=== PATIENT | female | born 1985 | race Caucasian/White ===

== ENCOUNTER 2019-01-28 16:44 | Emergency (ER) | payer OTHER ==
[2019-01-28 17:30] LABS: Absolute Lymphocytes (CBC) 1.5 K/uL (0.7-4.9); Absolute Monocytes 0.3 K/uL (0.1-1.3); Absolute Neutrophil 4.3 K/uL (1.8-8.0); Basophils % 0.7 % (0-1.3); Eosinophils % 0.9 % (0-4.4); Hematocrit 35.4 % (36.0-45.0); Lymphocytes % 24.6 % (15.3-44.8); MPV 8.2 fL (7.6-11.3); Monocytes % 4.6 % (3.3-12.3)
[2019-01-28 18:09] LABS: BUN Blood Urea Nitrogen 14 mg/dL (7-18); Bicarbonate 28 mmol/L (21-32); Glucose Level 113 mg/dL (74-106); HCG, Quantitative 4359 mIU/mL (1-3); Potassium 3.6 mmol/L (3.5-5.1); Sodium Level 141 mmol/L (136-145)
--- NOTE | 2019-01-28 18:28 | EDPHYS ---
Physician Documentation [facility] Name: Miriam Lennon Age: 33 yrs Sex: Female : 1985 Arrival Date: 01/28/2019 Time: 16:48 Bed 20 Private MD: ED Physician Atilio Polanco HPI: 01/28 17:00 This 33 yrs old Female presents to ER via Ambulatory with complaints of jmm Vaginal Bleeding, + Preg <12wks. 17:00 The patient presents to the emergency department with vaginal bleeding. Associated jmm signs and symptoms: Pertinent positives: vaginal bleeding. This is a 33 year old female with a history of hypothyroidism that presents to the ED with complaints of vaginal bleeding. Patient also complaints of pelvic cramping. Blood is described as dark. Patient denies vomiting or diarrhea. . 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 - Social history:: Smoking status: Patient/guardian denies using tobacco. - Ebola Screening: : Patient negative for fever greater than or equal to 101.5 degrees Fahrenheit, and additional compatible Ebola Virus Disease symptoms Patient denies exposure to infectious person Patient denies travel to an Ebola-affected area in the 21 days before illness onset No symptoms or risks identified at this time. ROS: 17:00 Constitutional: Negative for fever, chills, and weight loss, Cardiovascular: Negative jmm for chest pain, palpitations, and edema, Respiratory: Negative for shortness of breath, cough, wheezing, and pleuritic chest pain. 17:00 : Positive for vaginal bleeding. 17:00 All other systems are negative. Exam: 17:00 Constitutional: This is a well developed, well nourished patient who is awake, alert, jmm and in no acute distress. Head/Face: atraumatic. Eyes: EOMI, no conjunctival erythema appreciated ENT: Moist Mucus Membranes Neck: Trachea midline, Supple Chest/axilla: Normal chest wall appearance and motion. Cardiovascular: Regular rate and rhythm. No edema appreciated Respiratory: Normal respirations, no respiratory distress appreciated Abdomen/GI: Non distended, soft Back: Normal ROM Skin: General appearance color normal MS/ Extremity: Moves all extremities, no obvious deformities appreciated, no edema noted to the lower extremities Neuro: Awake and alert, normal gait Vital Signs: 16:50 BP 135 / 89; Pulse 90; Resp 16; Temp 98.6; Pulse Ox 100% on R/A; Weight 63.5 kg; Height sg 5 ft. 9 in. (175.26 cm); Pain 10/10; 17:54 BP 100 / 66; Pulse 78; Resp 18; Pulse Ox 100% on R/A; em 18:50 BP 113 / 73; Pulse 75; Resp 16; Temp 98.7(O); Pulse Ox 98% on R/A; Pain 6/10; rb1 16:50 Body Mass Index 20.67 (63.50 kg, 175.26 cm) sg MDM: 17:00 Patient medically screened. [facility] 18:25 Data reviewed: vital signs, nurses notes. Counseling: I had a detailed discussion with [facility] the patient and/or guardian regarding: the historical points, exam findings, and any diagnostic results supporting the discharge/admit diagnosis, lab results, radiology results, the need for outpatient follow up, to return to the emergency department if symptoms worsen or persist or if there are any questions or concerns that arise at home. 18:25 ED course: Patient is alert and non toxic in appearance in the ED. Advised to follow up [facility] with obgyn for reevaluation. Patient was otherwise given strict return precautions. patient understood and agrees with the plan of care. . 01/28 17:00 Order name: Quantitative Hcg; Complete Time: 18:10 [facility] 01/28 17:00 Order name: Abo/rh Typing; Complete Time: 18:10 [facility] 01/28 17:00 Order name: Basic Metabolic Panel; Complete Time: 18:10 [facility] 01/28 17:00 Order name: CBC with Diff; Complete Time: 17:36 [facility] 01/28 17:47 Order name: Urine Dipstick--Ancillary (enter results) 01/28 17:47 Order name: Urine --Ancillary (enter results) 01/28 17:00 Order name: IV Saline Lock; Complete Time: 17:32 [facility] 01/28 17:00 Order name: Labs collected and sent; Complete Time: 17:32 [facility] 01/28 17:00 Order name: NPO; Complete Time: 17:32 [facility] 01/28 17:00 Order name: Urine Dipstick-Ancillary (obtain specimen); Complete Time: 17:28 [facility] 01/28 17:00 Order name: Urine Dipstick-Ancillary (obtain specimen); Complete Time: 17:28 [facility] 01/28 18:26 Order name: TRANSVAG OB EDMS Administered Medications: No medications were administered Disposition: 01/28/19 18:27 Discharged to Home. Impression: Threatened . - Condition is Stable. - Discharge Instructions: Threatened Miscarriage, Pelvic Rest. - Medication Reconciliation Form, Thank You Letter, Antibiotic Education, Prescription Opioid Use form. - Follow up: Private Physician; When: 2 - 3 days; Reason: Recheck today's complaints, Continuance of care, Re-evaluation by your physician. Signatures: Dispatcher [employer] [facility] Wes Syed, RN RN Jarvis Geiger PA PA [facility] Katiana Charlton, RN RN rb1 Corrections: (The following items were deleted from the chart) 18:26 17:01 OB Limited+US.RAD.BRZ ordered. [facility] 18:41 17:00 3, Living 2 [facility] 18:57 18:27 01/28/2019 18:27 Discharged to Home. Impression: Threatened . Condition rb1 is Stable. Forms are Medication Reconciliation Form, Thank You Letter, Antibiotic Education, Prescription Opioid Use. Follow up: Private Physician; When: 2 - 3 days; Reason: Recheck today's complaints, Continuance of care, Re-evaluation by your physician. [facility]
--- NOTE | 2019-01-28 18:28 | ER ---
Nurse's Notes [facility] Name: Miriam Lennon Age: 33 yrs Sex: Female : 1985 Arrival Date: 01/28/2019 Time: 16:48 Bed 20 Private MD: Diagnosis: Threatened Presentation: 01/28 16:54 Presenting complaint: Patient states: I just found out I was , I think I am sg bout 7 weeks, Had some dizziness and vaginal spotting this morning, then this afternoon the blood has been dark brown and heavier in flow, with pain in the pelvic area. Transition of care: patient was not received from another setting of care. Onset of symptoms was January 28, 2019. Risk Assessment: Do you want to hurt yourself or someone else? Patient reports no desire to harm self or others. Initial Sepsis Screen: Does the patient meet any 2 criteria? No. Patient's initial sepsis screen is negative. Does the patient have a suspected source of infection? No. Patient's initial sepsis screen is negative. Care prior to arrival: None. 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 - Social history:: Smoking status: Patient/guardian denies using tobacco. - Ebola Screening: : Patient negative for fever greater than or equal to 101.5 degrees Fahrenheit, and additional compatible Ebola Virus Disease symptoms Patient denies exposure to infectious person Patient denies travel to an Ebola-affected area in the 21 days before illness onset No symptoms or risks identified at this time. Screenin:10 Abuse screen: Denies threats or abuse. Nutritional screening: No deficits noted. em Tuberculosis screening: No symptoms or risk factors identified. Fall Risk None identified. Assessment: 17:15 General: Appears in no apparent distress. comfortable, Behavior is calm, cooperative, em Denies fever. Pain: Complains of pain in pelvis Pain currently is 0 out of 10 on a pain scale. at worst was 10 out of 10 on a pain scale. Neuro: Level of Consciousness is awake, alert, obeys commands, Oriented to person, place, time, situation, Reports dizziness, Denies blurred vision headache. Cardiovascular: Capillary refill < 3 seconds Patient's skin is warm and dry. Respiratory: Airway is patent Respiratory effort is even, unlabored, Respiratory pattern is regular, symmetrical. GI: Abdomen is flat, Bowel sounds present X 4 quads. Abd is soft and non tender X 4 quads. Reports nausea, Patient currently denies vomiting. : Urine is clear, Reports cramping, vaginal bleeding that is Denies burning with urination, discharge. Derm: Skin is intact, is healthy with good turgor, Skin is pink, warm \T\ dry. Musculoskeletal: Capillary refill < 3 seconds, Range of motion: intact in all extremities. 17:55 Reassessment: Patient appears in no apparent distress at this time. Patient and/or em family updated on plan of care and expected duration. Pain level reassessed. Patient is alert, oriented x 3, equal unlabored respirations, skin warm/dry/pink. pending ultrasound. 18:51 Reassessment: Patient appears in no apparent distress at this time. Patient and/or rb1 family updated on plan of care and expected duration. Pain level reassessed. Patient is alert, oriented x 3, equal unlabored respirations, skin warm/dry/pink. Patient states feeling better. Vital Signs: 16:50 BP 135 / 89; Pulse 90; Resp 16; Temp 98.6; Pulse Ox 100% on R/A; Weight 63.5 kg; Height sg 5 ft. 9 in. (175.26 cm); Pain 10/10; 17:54 BP 100 / 66; Pulse 78; Resp 18; Pulse Ox 100% on R/A; em 18:50 BP 113 / 73; Pulse 75; Resp 16; Temp 98.7(O); Pulse Ox 98% on R/A; Pain 6/10; rb1 16:50 Body Mass Index 20.67 (63.50 kg, 175.26 cm) ED Course: 16:48 Patient arrived in ED. tw3 16:50 Arm band placed on. sg 16:52 Ash Leon PA is PHCP. jmm 16:52 Atilio Polanco MD is Attending Physician. [facility] 16:55 Triage completed. sg 16:58 Yosef Abreu LVN is Primary Nurse. em 17:15 Initial lab(s) drawn, by me, sent to lab. Inserted saline lock: 20 gauge in right em antecubital area, using aseptic technique. Blood collected. 17:28 Patient has correct armband on for positive identification. Placed in gown. Bed in low mh5 position. Call light in reach. Warm blanket given. Pulse ox on. NIBP on. 17:28 Urine collected: clean catch specimen, clear. 5 18:25 Ultrasound completed. Patient tolerated well. Notified ED Physician ash. sg3 18:26 TRANSVAG OB In Process Unspecified. EDMS 18:57 No provider procedures requiring assistance completed. IV discontinued, intact, rb1 bleeding controlled, No redness/swelling at site. Pressure dressing applied. Administered Medications: No medications were administered Outcome: 18:27 Discharge ordered by MD. [facility] 18:57 Discharged to home ambulatory. rb1 18:57 Condition: stable 18:57 Discharge instructions given to patient, Instructed on discharge instructions, follow up and referral plans. Demonstrated understanding of instructions, follow-up care, Prescriptions given X none 18:57 Patient left the ED. rb1 Signatures: Dispatcher [employer] EDMS Wes Syed, RN RN Ash Geiger PA PA [facility] Yosef Abreu LVN LVN Katiana Charlton, RN RN rb1 Fadumo Drew 5 Jacob, Kellen 3 Soha Castillo sg3
--- NOTE | 2019-01-28 19:01 | RAD REPORT ---
EXAM DESCRIPTION: US - TRANSVAG OB - 01/28/2019 6:26 pm CLINICAL HISTORY: with vaginal bleeding COMPARISON: None FINDINGS: The uterus measures 10 x 5 x 6 centimeters. A gestational sac is present within the endom etrium. Within this is a pole with a crown-rump length 1 centimeter. Cardiac activity 157 beats per minute. 15 millimeter subchorionic bleed The ovaries are normal in size echotexture. Right and left adnexa unremarkable. No significant free fluid IMPRESSION: Single live intrauterine with an estimated gestational age 7 weeks 1 day OLIVIA 0 09/15/2019 15 millimeter subchorionic bleed
[2019-01-28 20:13] LABS: Urine Blood TRACE (NEG); Urine Glucose NEGATIVE (NEG); Urine Protein NEGATIVE (NEG); Urine Specific Gravity 1.025 (1.005-1.030)
== END 2019-01-28 18:57 | disposition home or self-care (01) ==
LOC: ER 16:44
DX: O20.0 Threatened abortion (principal); O99.281 Endocrine, nutritional and metabolic diseases complicating pregnancy, first trimester; E03.9 Hypothyroidism, unspecified; Z3A.01 Less than 8 weeks gestation of pregnancy
CPT/HCPCS: 36415; 76813; 80048; 81003; 81025; 84702; 85025; 86900; 86901; 99284

== ENCOUNTER 2019-01-29 18:18 | Emergency (ER) | payer OTHER ==
[2019-01-29 19:41] LABS: Absolute Lymphocytes (CBC) 1.8 K/uL (0.7-4.9); Absolute Monocytes 0.5 K/uL (0.1-1.3); Absolute Neutrophil 7.1 K/uL (1.8-8.0); Basophils % 0.4 % (0-1.3); Eosinophils % 0.7 % (0-4.4); Lymphocytes % 19.1 % (15.3-44.8); MPV 8.3 fL (7.6-11.3); Monocytes % 5.4 % (3.3-12.3); RBC Red Blood Cell Count 4.28 M/uL (3.86-4.86)
--- NOTE | 2019-01-29 20:54 | EDPHYS ---
Physician Documentation [facility] Name: Miriam Lennon Age: 33 yrs Sex: Female : 1985 Arrival Date: 01/29/2019 Time: 18:20 Bed 30 Private MD: ED Physician Atilio Polanco HPI: 01/29 18:51 This 33 yrs old Female presents to ER via Ambulatory with complaints of jmm Vaginal Bleeding. 18:51 Onset: The symptoms/episode began/occurred gradually, 2 day(s) ago. jmm 18:51 Modifying factors: The symptoms are alleviated by nothing, the symptoms are aggravated jmm by walking. Associated signs and symptoms: Pertinent positives: cramping, vaginal bleeding, Pertinent negatives: fever. This is a 33 year old female with a history of hypothyroidism that presents to the ED with complaints of increased vaginal bleeding. Patient was evaluated yesterday and diagnosed with a threatened . Patient also complaints of increased pelvic cramping. . 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 - Social history:: Smoking status: Patient/guardian denies using tobacco, the patient reports quitting approximately 5 years ago. - Ebola Screening: : No symptoms or risks identified at this time. ROS: 18:51 Positive for vaginal bleeding. jmm 18:51 Constitutional: Negative for fever, chills, and weight loss. 18:51 Cardiovascular: Negative for chest pain, palpitations, and edema, Respiratory: Negative for shortness of breath, cough, wheezing, and pleuritic chest pain, Abdomen/GI: Negative for abdominal pain, nausea, vomiting, diarrhea, and constipation. 18:51 All other systems are negative. Exam: 18:51 Constitutional: This is a well developed, well nourished patient who is awake, alert, jmm and in no acute distress. Head/Face: atraumatic. Eyes: EOMI, no conjunctival erythema appreciated ENT: Moist Mucus Membranes Neck: Trachea midline, Supple Chest/axilla: Normal chest wall appearance and motion. Cardiovascular: Regular rate and rhythm. No edema appreciated Respiratory: Normal respirations, no respiratory distress appreciated 18:51 Back: Normal ROM Skin: General appearance color normal MS/ Extremity: Moves all extremities, no obvious deformities appreciated, no edema noted to the lower extremities Neuro: Awake and alert, normal gait Psych: Behavior is normal, Mood is normal, Patient is cooperative and pleasant 18:51 Abdomen/GI: Inspection: abdomen appears normal, Palpation: abdomen is soft and non-tender, in all quadrants. Vital Signs: 18:39 BP 107 / 80; Pulse 81; Resp 18; Temp 98.4; Pulse Ox 100% ; Weight 63.5 kg; Height 5 ft. rv 8 in. (172.72 cm); Pain 7/10; 20:00 BP 96 / 62; Pulse 65; Resp 16; Pulse Ox 98% ; rv 20:30 BP 111 / 70; Pulse 82; Resp 18; Pulse Ox 100% ; rv 21:01 BP 110 / 71; Pulse 81; Resp 18; Temp 98; Pulse Ox 99% ; rv 18:39 Body Mass Index 21.29 (63.50 kg, 172.72 cm) rv MDM: 18:51 Patient medically screened. [facility] 20:52 Data reviewed: vital signs, nurses notes. Counseling: I had a detailed discussion with [facility] the patient and/or guardian regarding: the historical points, exam findings, and any diagnostic results supporting the discharge/admit diagnosis, lab results, the need for outpatient follow up, to return to the emergency department if symptoms worsen or persist or if there are any questions or concerns that arise at home. ED course: I discussed lab results with the patient. Patient declined pelvic exam for visualization of cervix. Patient will follow up with ob tomorrow. Patient is otherwise given strict return precautions. . 01/29 18:51 Order name: CBC with Diff; Complete Time: 20:15 [facility] 01/29 18:52 Order name: Quantitative Hcg; Complete Time: 20:45 [facility] 01/29 19:40 Order name: Pelvic Exam Setup; Complete Time: 20:17 [facility] Administered Medications: No medications were administered Disposition: 01/29/19 20:53 Discharged to Home. Impression: Threatened . - Condition is Stable. - Discharge Instructions: Threatened Miscarriage. - Medication Reconciliation Form, Thank You Letter, Antibiotic Education, Prescription Opioid Use form. - Follow up: Brionna Morales MD; When: 2 - 3 days; Reason: Recheck today's complaints, Continuance of care, Re-evaluation by your physician. Addendum: 02/02/2019 22:40 Co-signature as Attending Physician, Atilio Polanco MD. g s Signatures: Dispatcher [employer] EDMS Jarvis Leon PA PA jmm Starr, Gregory, MD MD Catrachito Turcios RN RN rv Corrections: (The following items were deleted from the chart) 01/29 21:03 20:53 01/29/2019 20:53 Discharged to Home. Impression: Threatened . Condition rv is Stable. Forms are Medication Reconciliation Form, Thank You Letter, Antibiotic Education, Prescription Opioid Use. Follow up: Brionna Morales; When: 2 - 3 days; Reason: Recheck today's complaints, Continuance of care, Re-evaluation by your physician. [place]
--- NOTE | 2019-01-29 20:54 | ER ---
Nurse's Notes [facility] Name: Miriam Lennon Age: 33 yrs Sex: Female : 1985 Arrival Date: 01/29/2019 Time: 18:20 Bed 30 Private MD: Diagnosis: Threatened Presentation: 01/29 18:37 Presenting complaint: Patient states: I was here yesterday for abdominal cramping which rv started in the morning. then they checked me, did the ultrasound, they told me the baby's heart rate is fine and to go back here if it gets worse. last night I started with really bad cramping and I have been bleeding heavily. passing blood clots. Transition of care: patient was not received from another setting of care. Onset of symptoms was January 28, 2019 at 08:00. Risk Assessment: Do you want to hurt yourself or someone else? Patient reports no desire to harm self or others. Initial Sepsis Screen: Does the patient meet any 2 criteria? No. Patient's initial sepsis screen is negative. Does the patient have a suspected source of infection? No. Patient's initial sepsis screen is negative. Care prior to arrival: None. 18:37 Method Of Arrival: Ambulatory rv 18:37 Acuity: JOSE G 3 rv Triage Assessment: 18:40 General: Appears in no apparent distress. uncomfortable, Behavior is calm, cooperative. rv Pain: Complains of pain in lower abdomen Pain radiates to lower back. Pain: Pain currently is 7 out of 10 on a pain scale. Quality of pain is described as crampy. EENT: No signs and/or symptoms were reported regarding the EENT system. Neuro: Level of Consciousness is awake, alert, obeys commands, Oriented to person, place, time, situation. Cardiovascular: Patient's skin is warm and dry. Respiratory: Airway is patent. GI: No signs and/or symptoms were reported involving the gastrointestinal system. : Reports vaginal bleeding that is with clots, heavy flow since last night. Derm: Skin is intact. Musculoskeletal: No signs and/or symptoms reported regarding the musculoskeletal system. 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 - Social history:: Smoking status: Patient/guardian denies using tobacco, the patient reports quitting approximately 5 years ago. - Ebola Screening: : No symptoms or risks identified at this time. Screenin:42 Abuse screen: Denies threats or abuse. Denies injuries from another. Nutritional rv screening: No deficits noted. Tuberculosis screening: No symptoms or risk factors identified. Fall Risk None identified. Vital Signs: 18:39 BP 107 / 80; Pulse 81; Resp 18; Temp 98.4; Pulse Ox 100% ; Weight 63.5 kg; Height 5 ft. rv 8 in. (172.72 cm); Pain 7/10; 20:00 BP 96 / 62; Pulse 65; Resp 16; Pulse Ox 98% ; rv 20:30 BP 111 / 70; Pulse 82; Resp 18; Pulse Ox 100% ; rv 21:01 BP 110 / 71; Pulse 81; Resp 18; Temp 98; Pulse Ox 99% ; rv 18:39 Body Mass Index 21.29 (63.50 kg, 172.72 cm) rv ED Course: 18:20 Patient arrived in ED. tw3 18:35 Catrachito Turcios, RN is Primary Nurse. rv 18:39 Triage completed. rv 18:42 Arm band placed on right wrist. Patient placed in an exam room, on a stretcher, on rv pulse oximetry, Patient notified of wait time. 18:43 Patient has correct armband on for positive identification. Bed in low position. Call rv light in reach. Side rails up X 1. Pulse ox on. NIBP on. 18:49 Jarvis Leon PA is PHCP. [facility] 18:49 Atilio Polanco MD is Attending Physician. [facility] 20:00 No provider procedures requiring assistance completed. Inserted saline lock: 20 gauge rv in left antecubital area, using aseptic technique. Blood collected. 20:53 Brionna Morales MD is Referral Physician. [facility] 21:02 IV discontinued, intact, bleeding controlled, No redness/swelling at site. Pressure rv dressing applied. Administered Medications: No medications were administered Outcome: 20:53 Discharge ordered by . [facility] 21:02 Discharged to home ambulatory. rv 21:02 Condition: good 21:02 Discharge instructions given to patient, Instructed on discharge instructions, follow up and referral plans. Demonstrated understanding of instructions, follow-up care. 21:03 Patient left the ED. rv Signatures: Jarvis Leon PA PA jmm Wade, Kellen tw3 Catrachito Turcios, RN RN rv
== END 2019-01-29 21:03 | disposition home or self-care (01) ==
LOC: ER 18:18
DX: O20.0 Threatened abortion (principal); O99.280 Endocrine, nutritional and metabolic diseases complicating pregnancy, unspecified trimester; E03.9 Hypothyroidism, unspecified; Z3A.00 Weeks of gestation of pregnancy not specified
CPT/HCPCS: 36415; 84702; 85025; 99284

== ENCOUNTER 2019-10-19 20:01 | Emergency (ER) | payer OTHER ==
--- OUTSIDE RECORDS SUMMARY | 2019-10-19 20:03 | XMS REPORT ---
:1985 [facility] Address [address] [place] [address] Dr. Webb [address] [place] [id number] Care Team Providers Name Role Phone Unavailable Unavailable Unavailable Problems This patient has no known problems. Allergies, Adverse Reactions, Alerts This patient has no known allergies or adverse reactions. Medications This patient has no known medications.
[2019-10-19 21:23] LABS: Absolute Lymphocytes (CBC) 1.7 K/uL (0.7-4.9); Basophils % 1.1 % (0-1.3); Hematocrit 36.2 % (36.0-45.0); Lymphocytes % 30.4 % (15.3-44.8); MPV 8.4 fL (7.6-11.3); RBC Red Blood Cell Count 3.91 M/uL (3.86-4.86)
[2019-10-19 21:52] LABS: ALT/SGPT 29 U/L (12-78); AST/SGOT 15 U/L (15-37); Alkaline Phosphatase 36 U/L (45-117); BUN Blood Urea Nitrogen 13 mg/dL (7-18); Bicarbonate 31 mmol/L (21-32); Bilirubin Direct 0.1 mg/dL (0-0.2); Bilirubin Total 0.3 mg/dL (0.2-1.0); Glucose Level 94 mg/dL (74-106); Magnesium 2.4 mg/dL (1.8-2.4); Potassium 3.7 mmol/L (3.5-5.1); Protein, Total 7.2 g/dL (6.4-8.2); Sodium Level 141 mmol/L (136-145); Troponin (Emerg Dept Use Only) < 0.02 ng/mL (0.0-0.045)
[2019-10-19] MEDS ORDERED: MORPHINE 4 MG/ML SYR ONE (21:56)
--- NOTE | 2019-10-19 23:25 | ER ---
Nurse's Notes [facility] Name: Miriam Lennon Age: 34 yrs Sex: Female : 1985 Arrival Date: 10/19/2019 Time: 20:04 Bed 16 Private MD: Diagnosis: Headache;Odonophagia Presentation: 10/19 20:19 Presenting complaint: Patient states: Pain to neck, trouble swallowing x 2 days; States lp1 dizziness, headaches, blurry vision that began when she woke up this morning. Transition of care: patient was not received from another setting of care. Onset of symptoms was October 19, 2019. Risk Assessment: Do you want to hurt yourself or someone else? Patient reports no desire to harm self or others. Initial Sepsis Screen: Does the patient meet any 2 criteria? No. Patient's initial sepsis screen is negative. Does the patient have a suspected source of infection? No. Patient's initial sepsis screen is negative. Care prior to arrival: None. 20:19 Method Of Arrival: Ambulatory lp1 20:19 Acuity: JOSE G 3 lp1 Triage Assessment: 20:20 Headache History: Denies prior headaches. Pain: Also complains of no other associated rr5 symptoms. 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 - Coronavirus screen:: The patient has NOT traveled to [place], [place], or [place] in the past 14 days. The patient has NOT had contact with known/suspected case of Coronavirus?. - Social history:: Smoking status: Patient reports the use of cigarette tobacco products. - Ebola Screening: : No symptoms or risks identified at this time. Screenin:21 Abuse screen: Denies threats or abuse. Denies injuries from another. Nutritional lp1 screening: No deficits noted. Tuberculosis screening: No symptoms or risk factors identified. Fall Risk None identified. Assessment: 20:20 General: Appears in no apparent distress. uncomfortable, Behavior is calm, cooperative, rr5 appropriate for age. 20:20 Pain: Complains of pain in head Pain does not radiate. Pain currently is 7 out of 10 on rr5 a pain scale. Quality of pain is described as aching, Pain began gradually, Is intermittent. Neuro: Level of Consciousness is awake, alert, obeys commands, Oriented to person, place, time, situation, Appropriate for age Reports blurred vision dizziness, headache. Cardiovascular: Capillary refill < 3 seconds Patient's skin is warm and dry. Respiratory: Airway is patent Respiratory effort is even, unlabored, Respiratory pattern is regular, symmetrical. GI: No signs and/or symptoms were reported involving the gastrointestinal system. : No signs and/or symptoms were reported regarding the genitourinary system. EENT: Throat is clear swelling right neck area noted. Reports difficulty swallowing. Derm: Skin is intact, Skin temperature is warm. Musculoskeletal: Circulation, motion, and sensation intact. Capillary refill < 3 seconds. 21:00 Reassessment: Patient appears in no apparent distress at this time. Patient is alert, rr5 oriented x 3, equal unlabored respirations, skin warm/dry/pink. awaiting for results. 22:05 Reassessment: Patient appears in no apparent distress at this time. Patient is alert, rr5 oriented x 3, equal unlabored respirations, skin warm/dry/pink. send for CT scan Patient states symptoms have improved. 23:35 Reassessment: Patient appears in no apparent distress at this time. Patient is alert, rr5 oriented x 3, equal unlabored respirations, skin warm/dry/pink. discharge instruction given and explained without complaints made. Patient states feeling better. Patient states symptoms have improved. Vital Signs: 20:21 BP 146 / 95; Pulse 78; Resp 16; Temp 98.3(O); Pulse Ox 100% on R/A; Weight 65.77 kg lp1 (R); Height 5 ft. 9 in. (175.26 cm); Pain 7/10; 21:30 BP 135 / 78; Pulse 80; Resp 19; Pulse Ox 98% ; Pain 8/10; rr5 22:30 BP 141 / 85; Pulse 83; Resp 16; Pulse Ox 98% on R/A; Pain 4/10; rr5 23:35 BP 121 / 75; Pulse 75; Resp 16; Temp 98.2; Pulse Ox 99% ; Pain 4/10; rr5 20:21 Body Mass Index 21.41 (65.77 kg, 175.26 cm) lp1 ED Course: 20:04 Patient arrived in ED. jg7 20:20 Triage completed. lp1 20:21 Arm band placed on. lp1 20:25 Patient has correct armband on for positive identification. Placed in gown. Bed in low rr5 position. Call light in reach. 20:28 [facility]C [facility] la1 20:28 Mookie Brooks MD is Attending Physician. la1 21:25 Mamadou Butterfield, RN is Primary Nurse. rr5 23:35 No provider procedures requiring assistance completed. IV discontinued, intact, rr5 bleeding controlled, No redness/swelling at site. Pressure dressing applied. 0207 01:25 XRAY Chest (1 view) In Process Unspecified. EDMS 01:25 CT Head Brain wo Cont In Process Unspecified. EDMS 02:17 CT Soft Tissue Neck W/contr In Process Unspecified. EDMS Administered Medications: 02 21:58 Drug: morphine 4 mg {Note: rass 0.} Route: IVP; Site: left antecubital; rr5 23:00 Follow up: Response: No adverse reaction; Pain is decreased; RASS: Alert and Calm (0) rr5 Outcome: 23:24 Discharge ordered by . la1 23:35 Discharged to home ambulatory. rr5 23:35 Condition: stable 23:35 Discharge instructions given to patient, Instructed on discharge instructions, follow up and referral plans. Demonstrated understanding of 23:39 Patient left the ED. rr5 Signatures: Dispatcher [employer] EDMS Claudia Lopes, RN RN lp1 Torres Blunt FNP-C FNP-[facility] Mamadou Butterfield, RN RN rr5 Stephie Chambers jg7 Corrections: (The following items were deleted from the chart) 23:43 20:20 EENT: Throat is clear Reports difficulty swallowing rr5 rr5
--- NOTE | 2019-10-19 23:25 | EDPHYS ---
Physician Documentation [facility] Name: Miriam Lennon Age: 34 yrs Sex: Female : 1985 Arrival Date: 10/19/2019 Time: 20:04 Bed 16 Private MD: ED Physician Mookie Brooks HPI: 10/19 21:13 This 34 yrs old Female presents to ER via Ambulatory with complaints of la1 Difficulty Swallowing, Dizziness, Headache. 21:13 The patient presents with pain when swallowing. The patient describes throat pain as la1 raw, scratchy. 21:15 Onset: The symptoms/episode began/occurred 2 day(s) ago. Severity of symptoms: At their la1 worst the symptoms were mild. Modifying factors: The symptoms are alleviated by nothing, the symptoms are aggravated by swallowing, Patient's oral intake status: good. Associated signs and symptoms: Pertinent negatives chills, cough, diarrhea, earache, fever, flu-like symptoms, headache, nausea, rhinorrhea, shortness of breath. The patient has not experienced similar symptoms in the past. pt reports LOPEZ for the last month or so that is sharp and stabbing and intermittent dizziness. reports pain when swallowing, "like something is stuck or something". 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 - Coronavirus screen:: The patient has NOT traveled to [place], [place], or [place] in the past 14 days. The patient has NOT had contact with known/suspected case of Coronavirus?. - Social history:: Smoking status: Patient reports the use of cigarette tobacco products. - Ebola Screening: : No symptoms or risks identified at this time. ROS: 21:18 Constitutional: Negative for fever, chills, and weight loss, Eyes: Negative for injury, la1 pain, redness, and discharge. 21:18 Neck: Negative for injury, pain, and swelling, Cardiovascular: Negative for chest pain, palpitations, and edema, Respiratory: Negative for shortness of breath, cough, wheezing, and pleuritic chest pain, Abdomen/GI: Negative for abdominal pain, nausea, vomiting, diarrhea, and constipation, Back: Negative for injury and pain, : Negative for injury, bleeding, discharge, and swelling, MS/Extremity: Negative for injury and deformity, Skin: Negative for injury, rash, and discoloration, Neuro: + for LOPEZ Endocrine: Negative for neck swelling, polydipsia, polyuria, polyphagia, and marked weight changes. 21:18 ENT: Positive for pain with swallowing. Exam: 21:18 Constitutional: This is a well developed, well nourished patient who is awake, alert, la1 and in no acute distress. Head/Face: Normocephalic, atraumatic. Eyes: Pupils equal round and reactive to light, extra-ocular motions intact. Lids and lashes normal. Conjunctiva and sclera are non-icteric and not injected. Cornea within normal limits. Periorbital areas with no swelling, redness, or edema. ENT: Nares patent. No nasal discharge, no septal abnormalities noted. Tympanic membranes are normal and external auditory canals are clear. Oropharynx with no redness, swelling, or masses, exudates, or evidence of obstruction, uvula midline. Mucous membranes moist. Neck: Trachea midline, no thyromegaly or masses palpated, and no cervical lymphadenopathy. Supple, full range of motion without nuchal rigidity, or vertebral point tenderness. No Meningismus. Chest/axilla: Normal chest wall appearance and motion. Nontender with no deformity. No lesions are appreciated. Cardiovascular: Regular rate and rhythm with a normal S1 and S2. No gallops, murmurs, or rubs. Normal PMI, no JVD. No pulse deficits. Respiratory: Lungs have equal breath sounds bilaterally, clear to auscultation Abdomen/GI: Soft, non-tender, with normal bowel sounds. No distension or tympany. No guarding or rebound. No evidence of tenderness throughout. Back: No spinal tenderness. No costovertebral tenderness. Full range of motion. Skin: Warm, dry with normal turgor. Normal color with no rashes, no lesions, and no evidence of cellulitis. MS/ Extremity: Pulses equal, no cyanosis. Neurovascular intact. Full, normal range of motion. Vital Signs: 20:21 BP 146 / 95; Pulse 78; Resp 16; Temp 98.3(O); Pulse Ox 100% on R/A; Weight 65.77 kg lp1 (R); Height 5 ft. 9 in. (175.26 cm); Pain 7/10; 21:30 BP 135 / 78; Pulse 80; Resp 19; Pulse Ox 98% ; Pain 8/10; rr5 22:30 BP 141 / 85; Pulse 83; Resp 16; Pulse Ox 98% on R/A; Pain 4/10; rr5 23:35 BP 121 / 75; Pulse 75; Resp 16; Temp 98.2; Pulse Ox 99% ; Pain 4/10; rr5 20:21 Body Mass Index 21.41 (65.77 kg, 175.26 cm) lp1 MDM: 20:28 Patient medically screened. la1 23:13 Data reviewed: vital signs, nurses notes, lab test result(s), radiologic studies, I la1 have discussed the patient's presentation/case with the attending Emergency Department Physician;. 23:22 Data interpreted: Pulse oximetry: on room air is 100 %. Interpretation: normal. la1 Counseling: I had a detailed discussion with the patient and/or guardian regarding: the historical points, exam findings, and any diagnostic results supporting the discharge/admit diagnosis, lab results, radiology results, the need for outpatient follow up, a family practitioner, to return to the emergency department if symptoms worsen or persist or if there are any questions or concerns that arise at home. Special discussion: Further emergent ED testing is not indicated at this point in time. I discussed with the patient/guardian in detail the need to arrange with the PCP or specialist further outpatient testing, US thyroid. Based on the history and exam findings, there is no indication for further emergent testing or inpatient evaluation. I discussed with the patient/guardian the need to see the primary care provider for further evaluation of the symptoms. 10/19 20:37 Order name: Basic Metabolic Panel 10/19 20:37 Order name: CBC with Diff 10/19 20:37 Order name: LFT's 10/19 20:37 Order name: Magnesium 10/19 20:37 Order name: Troponin (emerg Dept Use Only) 10/19 20:37 Order name: TSH 10/19 20:37 Order name: T4 Free 10/19 21:26 Order name: CBC with Automated Diff; Complete Time: 21:28 EDMS 10/19 21:56 Order name: Basic Metabolic Panel; Complete Time: 23:17 EDMS 10/19 21:56 Order name: Liver (Hepatic) Function; Complete Time: 23:17 EDMS 10/19 21:56 Order name: Troponin (Emerg Dept Use Only); Complete Time: 23:17 EDMS 10/19 21:56 Order name: T4 Free; Complete Time: 23:17 EDMS 10/19 21:56 Order name: Magnesium; Complete Time: 23:17 EDMS 10/19 21:56 Order name: Thyroid Stimulating Hormone; Complete Time: 22:26 EDMS 10/19 20:37 Order name: Cardiac monitoring; Complete Time: 21:15 ut10/19 20:37 Order name: XRAY Chest (1 view) 10/19 20:37 Order name: EKG; Complete Time: 20:39 10/19 20:37 Order name: EKG - Nurse/Tech; Complete Time: 21:15 ut10/19 20:37 Order name: IV Saline Lock; Complete Time: 21:15 ut10/19 20:37 Order name: Labs collected and sent; Complete Time: 21:15 ut10/19 20:37 Order name: O2 Sat Monitoring; Complete Time: 21:15 ut10/19 20:37 Order name: CT Head Brain wo Cont 10/19 21:29 Order name: CT Soft Tissue Neck W/contr la Administered Medications: 21:58 Drug: morphine 4 mg {Note: rass 0.} Route: IVP; Site: left antecubital; rr5 23:00 Follow up: Response: No adverse reaction; Pain is decreased; RASS: Alert and Calm (0) rr5 Disposition: 10/20 09:24 Co-signature as Attending Physician, Mookie Brooks MD I agree with the assessment and andrey plan of care. Disposition: 10/19/19 23:24 Discharged to Home. Impression: Headache, Odonophagia. - Condition is Stable. - Discharge Instructions: General Headache Without Cause, Hypothyroidism. - Medication Reconciliation Form, Thank You Letter form. - Follow up: Private Physician; When: 2 - 3 days; Reason: Recheck today's complaints, Re-evaluation by your physician. - Problem is new. - Symptoms have improved. Signatures: Dispatcher [employer] EDMookie Castellano MD MD cha Pena, Laura, RN RN lp1 Torres Blunt, HUMAN RESOURCES PROFESSIONAL-C HUMAN RESOURCES PROFESSIONAL-Cla1 Mamadou Butterfield, RN RN rr5 Corrections: (The following items were deleted from the chart) 10/19 23:39 23:24 10/19/2019 23:24 Discharged to Home. Impression: Headache; Odonophagia. Condition rr5 is Stable. Forms are Medication Reconciliation Form, Thank You Letter, Antibiotic Education, Prescription Opioid Use. Follow up: Private Physician; When: 2 - 3 days; Reason: Recheck today's complaints, Re-evaluation by your physician. Problem is new. Symptoms have improved. la1
[2019-10-20 00:37] VITALS: BP 146/95; TEMP 98.3; O2SAT 100
--- NOTE | 2019-10-20 09:39 | RAD REPORT ---
EXAM DESCRIPTION: RAD - Chest Single View - 10/19/2019 8:55 pm CLINICAL HISTORY: CHEST PAIN COMPARISON: No comparisons TECHNIQUE: AP portable chest image was obtained 10/19/2019 8:55 pm . FINDINGS: Lungs are clear. Heart and vasculature are normal. No measurable pleural effusion and no p neumothorax. No acute bony abnormality seen. No acute aortic findings suspected. Bilateral nipple sha dows overlie the lower chest. IMPRESSION: No acute cardiopulmonary process.
--- NOTE | 2019-10-20 13:04 | RAD REPORT ---
EXAM DESCRIPTION: CT - Head Brain Wo Cont - 10/20/2019 2:39 am CLINICAL HISTORY: 34 years Female DIZZINESS TECHNIQUE: Contiguous axial CT images obtained through the brain without IV contrast. Coronal and sa gittal reformats also provided. This CT exam was performed according to our departmental dose-optimization program, which includes on e or more of the following dose reduction TECHNIQUE: Automated exposure control, adjustment of the mA and/or kV according to patient size, and /or use of iterative reconstruction technique. COMPARISON: No prior exams provided for comparison. FINDINGS: There is no intracranial hemorrhage, extra-axial collection, or acute transcortical infarc tion. The ventricles are normal in size and contour without mass-effect or midline shift. Osseous structures are normal. The paranasal sinuses and mastoid air cells are clear. IMPRESSION: No acute intracranial abnormalities. Electronically signed by: Aislinn Martínez MD 10/19/2019 9:15 PM SLEEVE BOTTOM FELLER Due to temporary technical issues with the PACS/Fluency reporting system, reports are being signed by the in house radiologist as a courtesy to ensure prompt reporting. The interpreting radiologist is f ully responsible for the content of the report.
--- NOTE | 2019-10-20 13:15 | RAD REPORT ---
EXAM DESCRIPTION: CT - Soft Tissue Neck W/Contr - 10/20/2019 2:38 am CLINICAL HISTORY: The patient is 34 years old and is Female; dysphagia TECHNIQUE: Axial computed tomography images of the neck with intravenous contrast. Sagittal and co poornima reformatted images were created and reviewed. This CT exam was performed using one or more of the following dose reduction techniques: automated exposure control, adjustment of the mA and/or k V according to patient size, and/or use of iterative reconstruction technique. DLP: 216 mGy*cm COMPARISON: None. FINDINGS: OROPHARYNX: Unremarkable. No significant tonsillar enlargement. No peritonsillar ab scess. HYPOPHARYNX: Unremarkable. LARYNX: Unremarkable. Normal epiglottis. TRACHEA: Unremarkable. RETROPHARYNGEAL SPACE: Unremarkable. SUBMANDIBULAR/PAROTID GLANDS: Unremarkable. Glands are normal in size. THYROID: Diffuse heterogenous enlargement of the thyroid gland. BONES/JOINTS: Straightening of cervical lordosis. No acute fracture. SOFT TISSUES: Unremarkable. VASCULATURE: No acute findings. LYMPH NODES: Unremarkable. No lymphadenopathy. LUNG APICES: Apical lung zones are clear. IMPRESSION: 1. No acute abnormality of the soft tissue neck. 2. Diffuse heterogenous enlargement of the thyroid gland without narrowing of the airway. Recommend thyroid US. Reference: J Am Opal Radiol. 2015 b;12(2): 143-50. Electronically signed by: Edward Menezes DO 10/19/2019 11:03 PM ASSESSMENT RN Due to temporary technical issues with the PACS/Fluency reporting system, reports are being signed by the in house radiologist as a courtesy to ensure prompt reporting. The interpreting radiologist is f ully responsible for the content of the report.
--- NOTE | 2019-10-20 15:09 | EKG ---
Test Date: 2019-10-19 Test Time: 21:18:55 Absorber Operator: ABHIJIT MEASUREMENT RESULTS: Intervals: Rate: 70 SC: 158 QRSD: 94 QT: 392 QTc: 423 [place]: P: 89 SC: 158 QRS: 50 T: 70 INTERPRETIVE STATEMENTS: Normal sinus rhythm Normal ECG Compared to ECG 12/10/2016 17:16:17 Ventricular premature complex(es) no longer present Electronically Signed On 10-20-19 15:07:49 FAX MACHINE REPAIRER by Benjamin Guillen
== END 2019-10-19 23:39 | disposition home or self-care (01) ==
LOC: ER 20:01
DX: R51 Headache (principal); R13.10 Dysphagia, unspecified; E03.9 Hypothyroidism, unspecified; F17.210 Nicotine dependence, cigarettes, uncomplicated
CPT/HCPCS: 93005; 85025; 80048; 36415; 83735; 80076; 84443; 84484; 84439; 70450; 70491; 71045; 96374; 99283; Q9967

== ENCOUNTER 2021-08-11 16:23 | Emergency (ER) | payer OTHER ==
--- OUTSIDE RECORDS SUMMARY | 2021-08-11 16:26 | XMS REPORT | Continuity of Care Document ---
:1985 Author Organization [facility] t Address [address] [place] [address] Care Team Providers Name Role Phone Reanna ARTEAGA Primary Care Physician Unavailable AKINBIN, C Attending Clinician Unavailable Akinsievelyn ABEBEP, C Attending Clinician Lenore SPRING REPAIRER HELPER HAND, N Attending Clinician Jessie GROVER Attending Clinician Unavailable Provider, Urgent Care Attending Clinician Unavailable Aneanna SPRING REPAIRER HELPER HAND Attending Clinician Cindy Horn MD Attending Clinician CINDY HORN Attending Clinician Unavailable CINDY HORN Attending Clinician Unavailable Pob, Lab Main Attending Clinician Unavailable Doctor Unassigned, Name Attending Clinician Unavailable Payers Payer Name Policy Type Policy Number Effective Date Expiration Date S chris [facility] [id number] 2019 00:00:00 Advance Directives Directive Decision Effective Termination Comments Source Date Date Healthcare Agents on N/A [facility] FileNameRelationshipHealthcare [facility] Agent Medical RelationshipCommunicationSaginaw Branch [facility] [phone] (Home) [facility] Care [phone] (Mobile) Problems Condition Condition Condition Status Onset Resolution Last Treating Co mments Source Name Details Category Date Date Treatment Clinician Date Other Other Disease Active Univers general general 7-05 [place] of counseling [place] and advice 00 [place] dical for for Branch contracept contracept roe roe management management Irregular Irregular Disease Active Uni vers menstrual menstrual 7 ity of cycle cycle 00:00: [place] [facility] Other Other Disease Active Univers specified specified 3-09 ity of hypothyroi [place]othyro[place] dism 00 Medical [place] Susceptibl Susceptibl Disease Active 2018-09 U nivers e to e to -19 ity of varicella [place] (non-immun (non-immun 00 Me dical e), e), Branch currently currently Supervisio Supervisio Disease Active 2018-09 U nivers n of n of 1-15 ity of high-risk high-risk 00:00[place] gi[place] 00 [facility] Branch Multiparit Multiparit Disease Active 2018-09 U nivers y y 1-15 ity of 00:00: [place] [facility] History of History of Disease Active 2018-09 Overview : Univers -15 Formattin ity of section section 00:00: g of this note Medical might be Branch different from the original. x2 Flu Flu Disease Active 2018-09 Univers vaccine vaccine 1-15 ity of need need 00:00: [place] [facility] Hypothyroi Hypothyroi Disease Active Overview : Univers dism in dism in 03-08 Reports ity of 00:[place] 00 meds x1 Medical monthts- Branch 4.8t4 0.7 Allergies, Adverse Reactions, Alerts Allergy Allergy Status Severity Reaction(s) Onset Inactive Treating Comm ents Source Name Type Date Date Clinician NO KNOWN Drug Active Univers ALLERGIE Class ity of S [facility] Social History Social Habit Start Date Stop Date Quantity Comments Source ASSERTION 2019-06-27 University of 00:00:00 [facility] Exposure to Not sure University of SARS-CoV-2 [facility] (event) Branch Tobacco use and 2021-03-17 2021-03-17 Never used Universit y of exposure 00:00:00 00:00:00 [facility] Alcohol intake 2021-03-17 2021-03-17 Current University of 00:00:00 00:00:00 non-drinker of [facility] alcohol (finding) Branch History of 2016-03-[address] [facility] ty of tobacco use 00:00:00 [facility] Sex [birth year] At [birth year] Universit y of 00:00:00 00:00:00 [facility] Smoking Status Start Date Stop Date Source Former smoker 2021-03-17 00:00:00 2021-03-17 00:00:00 [facility] Medications Ordered Filled Start Stop Current Ordering Indication Dosage Frequency Signature Comments Components Source Medication Medication Date Date Medication? Clinician (SIG) Name Name levothyroxi 2018-09 Yes [id number] 50ug Take 1 Univers ne 2-02 tablet by ity of (SYNTHROID) 00:00: mouth [place] 50 mcg 00 every Medical tablet morning. [place] levothyroxi 2018-09 Yes [id number] 50ug Take 1 Univers ne 2-02 tablet by ity of (SYNTHROID) 00:00: mouth [place] 50 mcg 00 every Medical tablet morning. Branch levothyroxi 2018-09 Yes [id number] 50ug Take 1 Univers ne 2-02 tablet by ity of (SYNTHROID) 00:00: mouth [place] 50 mcg 00 every Medical tablet morning. Branch levothyroxi 2018-09 Yes [id number] 50ug Take 1 Univers ne 2-02 tablet by ity of (SYNTHROID) 00:00: mouth [place] 50 mcg 00 every Medical tablet morning. [place] levothyroxi 2018-09 Yes [id number] 50ug Take 1 Univers ne 2-02 tablet by ity of (SYNTHROID) 00:00: mouth [place] 50 mcg 00 every Medical tablet morning. Branch levothyroxi 2018-09 Yes [id number] 50ug Take 1 Univers ne 2-02 tablet by ity of (SYNTHROID) 00:00: mouth [place] 50 mcg 00 every Medical tablet morning. Branch levothyroxi 2018-09 Yes [id number] 50ug Take 1 Univers ne 2-02 tablet by ity of (SYNTHROID) 00:00: mouth [place] 50 mcg 00 every Medical tablet morning. Branch levothyroxi 2018-09 Yes [id number] 50ug Take 1 Univers ne 2-02 tablet by ity of (SYNTHROID) 00:00: mouth [place] 50 mcg 00 every Medical tablet morning. Branch levothyroxi 2018-09 Yes [id number] 50ug Take 1 Univers ne 2-02 tablet by ity of (SYNTHROID) 00:00: mouth [place] 50 mcg 00 every Medical tablet morning. Branch levothyroxi 2018-09 Yes [id number] 50ug Take 1 Univers ne 2-02 tablet by ity of (SYNTHROID) 00:00: mouth [place] 50 mcg 00 every Medical tablet morning. Branch levothyroxi 2018-09 Yes [id number] 50ug Take 1 Univers ne 2-02 tablet by ity of (SYNTHROID) 00:00: mouth [place] 50 mcg 00 every Medical tablet morning. Branch levothyroxi 2018-09 Yes [id number] 50ug Take 1 Univers ne 2-02 tablet by ity of (SYNTHROID) 00:00: mouth [place] 50 mcg 00 every Medical tablet morning. Branch levothyroxi 2018-09 Yes [id number] 50ug Take 1 Univers ne 2-02 tablet by ity of (SYNTHROID) 00:00: mouth [place] 50 mcg 00 every Medical tablet morning. Branch levothyroxi 2018-09 Yes [id number] 50ug Take 1 Univers ne 2-02 tablet by ity of (SYNTHROID) 00:00: mouth [place] 50 mcg 00 every Medical tablet morning. Branch levothyroxi 2018-09 Yes [id number] 50ug Take 1 Univers ne 2-02 tablet by ity of (SYNTHROID) 00:00: mouth [place] 50 mcg 00 every Medical tablet morning. Branch levothyroxi 2018-09 Yes [id number] 50ug Take 1 Univers ne 2-02 tablet by ity of (SYNTHROID) 00:00: mouth [place] 50 mcg 00 every Medical tablet morning. Branch levothyroxi 2018-09 Yes [id number] 50ug Take 1 Univers ne 2-02 tablet by ity of (SYNTHROID) 00:00: mouth [place] 50 mcg 00 every Medical tablet morning. Branch 2018-09 Yes [id number] 1{tbl} Take 1 U nivers multivitami 1-15 tablet by ity of n ( 00:00: mouth [place] VITAMIN) 00 daily. Medical tablet Branch 2018-09 Yes [id number] 1{tbl} Take 1 U nivers multivitami 1-15 tablet by ity of n ( 00:00: mouth [place] VITAMIN) 00 daily. Medical tablet Branch 2018-09 Yes [id number] 1{tbl} Take 1 U nivers multivitami 1-15 tablet by ity of n ( 00:00: mouth [place] VITAMIN) 00 daily. Medical tablet Branch 2018-09 Yes [id number] 1{tbl} Take 1 U nivers multivitami 1-15 tablet by ity of n ( 00:00: mouth [place] VITAMIN) 00 daily. Medical tablet Branch 2018-09 Yes [id number] 1{tbl} Take 1 U nivers multivitami 1-15 tablet by ity of n ( 00:00: mouth [place] VITAMIN) 00 daily. Medical tablet Branch 2018-09 Yes [id number] 1{tbl} Take 1 U nivers multivitami 1-15 tablet by ity of n ( 00:00: mouth [place] VITAMIN) 00 daily. Medical tablet Branch 2018-09 Yes [id number] 1{tbl} Take 1 U nivers multivitami 1-15 tablet by ity of n ( 00:00: mouth [place] VITAMIN) 00 daily. Medical tablet Branch 2018-09 Yes [id number] 1{tbl} Take 1 U nivers multivitami 1-15 tablet by ity of n ( 00:00: mouth [place] VITAMIN) 00 daily. Medical tablet Branch 2018-09 Yes [id number] 1{tbl} Take 1 U nivers multivitami 1-15 tablet by ity of n ( 00:00: mouth [place] VITAMIN) 00 daily. Medical tablet Branch 2018-09 Yes [id number] 1{tbl} Take 1 U nivers multivitami 1-15 tablet by ity of n ( 00:00: mouth [place] VITAMIN) 00 daily. Medical tablet Branch 2018-09 Yes [id number] 1{tbl} Take 1 U nivers multivitami 1-15 tablet by ity of n ( 00:00: mouth [place] VITAMIN) 00 daily. Medical tablet Branch 2018-09- No [id number] 1{tbl} Take 1 Univers multivitami 1-15 03-09 tablet by it y of n ( 00:00: [place] VITAMIN[place] 00 :00 daily. Medical tablet Branch 2018-09- No [id number] 1{tbl} Take 1 Univers multivitami 1-15 03-09 tablet by it y of n ( 00:00: 00:[place] VITAMIN) 00 :00 daily. Medical tablet Branch Centrum Centrum Yes Gurpreet not [facility] Levothyroxi Levothyroxi Yes Gurpreet [address] ne Sodium ne Sodium [place] in the [place] - morning on Memoria an empty l stomach Outpati ent Clinics Immunizations Ordered Filled Immunization Date Status Comments [facility] e Immunization Name Name Influenza Virus 2019-07-28 Completed Universit y of Vaccine Quad .5 mL 00:00:00 [place] [facility] IM 6+ MO Branch Influenza Virus 2019-07-28 Completed Universit y of Vaccine Quad .5 mL 00:00:00 [place] [facility] IM 6+ MO Branch Influenza Virus 2019-07-28 Completed Universit y of Vaccine [place] .5 mL 00:00:00 [place] [facility] 6+ MO Branch Influenza Virus 2019-07-28 Completed Universit y of Vaccine [place] .5 mL 00:00:00 [place] [facility] IM 6+ MO Branch Influenza Virus 2019-07-28 Completed Universit y of Vaccine [place] .5 mL 00:00:00 [place] [facility] IM 6+ MO Branch Influenza Virus 2019-07-28 Completed Universit y of Vaccine [place] .5 mL 00:00:00 [place] [facility] IM 6+ MO Branch Influenza Virus 2019-07-28 Completed Universit y of Vaccine [place] .5 mL 00:00:00 [place] [facility] 6+ MO Branch Influenza Virus 2019-07-28 Completed Universit y of Vaccine [place] .5 mL 00:00:00 [place] [facility] IM 6+ MO Branch Influenza Virus 2019-07-28 Completed Universit y of Vaccine [place] .5 mL 00:00:00 [place] [facility] IM 6+ MO Branch Influenza Virus 2019-07-28 Completed Universit y of Vaccine [place] .5 mL 00:00:00 [place] [facility] IM 6+ MO Branch Influenza Virus 2019-07-28 Completed Universit y of Vaccine [place] .5 mL 00:00:00 [place] [facility] IM 6+ MO Branch Influenza Virus 2019-07-28 Completed Universit y of Vaccine [place] .5 mL 00:00:00 [place] [facility] IM 6+ MO Branch Influenza Virus 2019-07-28 Completed Universit y of Vaccine [place] .5 mL 00:00:00 [place] [facility] IM 6+ MO Branch Influenza Virus 2019-07-28 Completed Universit y of Vaccine [place] .5 mL 00:00:00 [place] [facility] IM 6+ MO Branch Influenza Virus 2019-07-28 Completed Universit y of Vaccine [place] .5 mL 00:00:00 [place] Medical IM 6+ MO Branch Influenza Virus 2019-07-28 Completed Universit y of Vaccine [place] .5 mL 00:00:00 [place] [facility] IM 6+ MO Branch Influenza Virus 2019-07-28 Completed Universit y of Vaccine [place] .5 mL 00:00:00 [place] [facility] IM 6+ MO Branch Vital Signs Vital Name Observation Time Observation Value Comments Source Systolic blood 2021-03-17 13:59:00 118 mm[Hg] Univer sity of pressure [facility] Diastolic blood 2021-03-17 13:59:00 77 mm[Hg] Unive rsity of pressure [facility] Heart rate 2021-03-17 13:59:00 80 /min Universi ty of [facility] Body temperature 2021-03-17 13:59:00 36.72 Lena Univ ersity of [facility] Respiratory rate 2021-03-17 13:59:00 16 /min Univ ersity of [facility] Body height 2021-03-17 13:59:00 175.3 cm Universi ty of [place] [facility] [place] Body weight 2021-03-17 13:59:00 61.831 kg Universi ty of [facility] BMI 2021-03-17 13:59:00 20.13 kg/m2 Universi ty of [facility] Systolic blood 2020-11-19 21:24:00 127 mm[Hg] Univer sity of pressure [facility] Diastolic blood 2020-11-19 21:24:00 86 mm[Hg] Unive rsity of pressure [facility] Branch Heart rate 2020-11-19 21:24:00 70 /min Universi ty of [facility] Body temperature 2020-11-19 21:24:00 36.11 Lena Univ ersity of [facility] Branch Respiratory rate 2020-11-19 21:24:00 16 /min Univ ersity of [facility] Branch Body height 2020-11-19 21:24:00 175.3 cm Universi ty of [facility] Body weight 2020-11-19 21:24:00 61.598 kg Universi ty of [facility] Branch BMI 2020-11-19 21:24:00 20.05 kg/m2 Universi ty of [place] [facility] Systolic blood 2020-11-01 21:49:00 130 mm[Hg] Univer sity of pressure [place] [facility] Diastolic blood 2020-11-01 21:49:00 87 mm[Hg] Unive rsity of pressure [place] [facility] Heart rate 2020-11-01 21:49:00 93 /min Universi ty of [place] [facility] Body temperature 2020-11-01 21:49:00 36.89 Lena Univ ersity of [place] [facility] Respiratory rate 2020-11-01 21:49:00 16 /min Univ ersity of [place] [facility] Body height 2020-11-01 21:49:00 175.3 cm Universi ty of [place] [facility] Body weight 2020-11-01 21:49:00 65.772 kg Universi ty of [place] [facility] BMI 2020-11-01 21:49:00 21.41 kg/m2 Universi ty of [place] [facility] Oxygen saturation in 2020-11-01 21:49:00 100 /min University of Arterial blood by [place] Medi alexandra Pulse oximetry Branch Systolic blood 2020-09-02 17:26:00 115 mm[Hg] Univer sity of pressure [place] [facility] Diastolic blood 2020-09-02 17:26:00 78 mm[Hg] Unive rsity of pressure [place] [facility] Heart rate 2020-09-02 17:26:00 74 /min Universi ty of [place] [facility] Body height 2020-09-02 17:26:00 175.3 cm Universi ty of [place] [facility] Body weight 2020-09-02 17:26:00 62.596 kg Universi ty of [place] [facility] BMI 2020-09-02 17:26:00 20.38 kg/m2 Universi ty of [place] [facility] Oxygen saturation in 2020-09-02 17:26:00 100 /min University of Arterial blood by [place] Medi alexandra Pulse oximetry Branch Systolic blood 2020-05-17 18:09:00 129 mm[Hg] Univer sity of pressure [place] [facility] Diastolic blood 2020-05-17 18:09:00 78 mm[Hg] Unive rsity of pressure [place] [facility] Heart rate 2020-05-17 18:09:00 86 /min Universi ty of [place] [facility] Body temperature 2020-05-17 18:09:00 37.22 Lena Univ ersity of [place] [facility] Body height 2020-05-17 18:09:00 175.3 cm [facility] Body weight 2020-05-17 18:09:00 65.681 kg [facility] BMI 2020-05-17 18:09:00 21.38 kg/m2 [facility] Oxygen saturation in 2020-05-17 18:09:00 99 /min [facility] blood by [facility] Pulse oximetry Branch Procedures Procedure Date / Time Performed Performing Clinician Sourc e POCT GRP A STREP 2020-11-02 00:08:00 Chen Schreiber [facility] (MOLECULAR) [facility] MR BRAIN WO CONTRAST 2020-05-23 16:42:34 [facility] 2020-05-23 15:12:24 Doctor Unassigned, No [facility] Name Medical Branch REFERRAL- 2020-04-24 05:01:00 Doctor Unassigned, No [facility] REQUEST/RESPONSE Name [facility] Encounters Start End Encounter Admission Attending Care Care Encounter Source Date/Time Date/Time Type Type Clinicians Facility Department ID 2021-09-04 2021-09-04 Outpatient R [facility] [id number] Univers 14:45:00 14:45:00 [id number] [facility] 2021-09-04 2021-09-04 Outpatient R [facility] [id number] Univers 14:45:00 [facility] 2021-08-25 2021-08-25 Outpatient R AKINSIPE, [facility] [id number] Univers 10:45:00 10:45:00 NYDIA [id number] ity o f [facility] 2021-08-25 2021-08-25 Outpatient R AKINSIPE, [facility] [id number] Univers 10:45:00 10:45:00 NYDIA ity o f [facility] 2021-07-08 2021-07-08 Outpatient [facility] [id number] [facility] 2021-05-12 2021-05-12 Outpatient R AKINSIPE, [facility] [id number] Univers 10:45:00 10:45:00 NYDIA [id number] ity o [facility] 2021-05-12 2021-05-12 Outpatient R PAPABIN, [facility] [id number] Univers 10:45:00 10:45:00 NYDIA ity o [facility] 2021-05-07 2021-05-07 Outpatient [facility]MLC [facility] [id number] [facility] 2021-05-06 2021-05-06 Outpatient [facility] [id number] [facility] 2021-04-01 2021-04-01 [facility] [id number] [facility] 2021-03-17 2021-03-17 [facility] [id number] Univers 08:43:06 09:29:43 Visit Nydia 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 [id number] ity [facility] [id number] Earnest as MATERNAL [phone] [facility] ical & CHILD [address] [place] [address] 2021-03-17 2021-03-17 Outpatient Reanna ESTRELLA [facility] [id number] Univers 08:45:00 08:45:00 NYDIA [id number] williamy o [facility] 2021-03-17 2021-03-17 Outpatient R AKINSIEVELYN, [facility] [id number] Univers 08:45:00 08:45:00 NYDIA ity o [facility] 2020-12-26 2020-12-26 Outpatient ST[facility] [id number] [facility] 2020-11-25 2020-11-25 Outpatient [facility]C [facility] [id number] [facility] 2020-11-19 2020-11-19 Office [facility] [id number] Univers 15:15:58 16:03:57 Visit Merari Jessie [employer]SM[employer]SHIP INSTRUCTOR [id number] it y [facility] [id number] Earnest as MATERNAL [phone] Med ical & CHILD [address] [place] [address] 2020-11-19 2020-11-19 Outpatient R LENORE [facility] [id number] Univers 15:15:00 15:15:00 MERARI ity [facility] 2020-11-19 2020-11-19 Outpatient R [facility] [id number] Univers 14:45:00 14:45:00 [id number] [facility] 2020-11-01 2020-11-01 Urgent Provider, [facility] [id number] Univers 15:43:26 16:35:20 Care Abdoul [facility] [id number] ity [facility] [id number] Earnest as Professio [phone] [place] [address] [place] [address] 2020-11-01 2020-11-01 Outpatient R [facility] [id number] Univers 15:40:00 15:40:00 [id number] ity [facility] 2020-11-01 2020-11-01 Outpatient R [facility] [id number] Univers 15:40:00 15:40:00 ity [facility] 2020-09-02 2020-09-02 Office Kory [facility] [id number] Univers 11:22:43 12:04:51 Visit Dg Stovall [place] [id number] ity [facility] [id number] [place] Profess[place] [phone] [place] dical [place]al [address] [facility] 2020-09-02 2020-09-02 Outpatient R DG HORN [facility] [id number] Univers 11:20:00 11:20:00 DG HORN [id number] ity [facility] 2020-09-02 2020-09-02 Outpatient R DG HORN [facility] [id number] Univers 11:20:00 11:20:00 DG HORN italida [facility] 2020-08-19 2020-08-19 Outpatient R DG HORN [facility] [id number] Univers 11:20:00 11:20:00 [facility] 2020-08-19 2020-08-19 Outpatient R DG HORN [facility] [id number] Univers 11:20:00 11:20:00 DG HORN alida [facility] 2020-08-06 2020-08-06 Outpatient R [facility] [id number] Univers 14:00:00 14:00:00 [id number] ity [facility] 2020-08-06 2020-08-06 Outpatient R DG HORN [facility] [id number] Univers 14:00:00 14:00:00 DG HORN alida [facility] 2020-07-11 2020-07-11 Outpatient R [facility] [id number] Univers 14:00:00 14:00:00 [id number] [facility] 2020-07-11 2020-07-11 Outpatient R DG HORN [facility] [id number] Univers 14:00:00 14:00:00 DG HORN alida [facility] 2020-06-27 2020-06-27 Outpatient R [facility] [id number] Univers 14:00:00 14:00:00 [id number] [facility] 2020-06-27 2020-06-27 Outpatient R DG HORN [facility] [id number] Univers 14:00:00 14:00:00 DG HORN [facility] 2020-06-07 2020-06-07 Telephone Kory [facility] [id number] Univers 00:00:00 00:00:00 Dg Powers [id number] [facility] [id number] Janki Mcallister [phone] [place] dical [facility] [address] [facility] 2020-06-04 2020-06-04 Outpatient DG HORN [facility] [id number] Univers 16:00:00 16:00:00 DG HORN [id number] ity [facility] 2020-06-03 2020-06-03 Outpatient STLMLC [facility] [id number] [facility]00 [facility] 2020-05-23 2020-05-23 [facility] [id number] Univers 10:17:19 23:59:00 Encounter Dg Powers [id number] ity 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 [id number] [place] Profess[place] [phone] [place] dical [place]al [address] [facility] 2020-05-23 2020-05-23 Outpatient DG [place] [facility] [id number] Univers 00:00:00 00:00:00 DG [facility] 2020-05-23 2020-05-23 Orders Doctor MARTINEZ [id number] Univers 00:00:00 00:00:00 Only Unassigned, VINEET [id number] ity of [place] [facility] [id number] Earnest as [phone] [facility] [address] [place] 2020-05-17 2020-05-17 Office Kory [facility] [id number] Univers 12:56:45 14:18:24 Visit Dg Powers [id number] ity of [place] [id number] [place] Professio [phone] [place] dical nal [address] [facility] 2020-05-17 2020-05-17 Outpatient DG [place] [facility] [id number] Univers 13:00:00 13:00:00 DG HORN [id number] [facility] 2020-05-17 2020-05-17 Outpatient R DG HORN [facility] [id number] Univers 13:00:00 13:00:00 DG [facility] 2020-04-24 2020-04-24 Orders Doctor MICHELLE [id number] Univers 00:00:00 00:00:00 Only Unassigned, VINEET [id number] ity of [place] [facility] [id number] Eranest as [phone] [address] 2020-04-17 2020-04-17 [facility] [id number] 13:15:00 13:15:00 [facility] [place] ent [facility] 2019-11-30 2019-11-30 [facility] [id number] 13:15:00 13:15:00 [facility] [place] [facility] 2019-11-16 2019-11-16 [facility] [id number] 10:00:00 10:00:00 [facility] Results Test Description Test Time Test Comments Results Result Comments Source POCT GRP A STREP (MOLECULAR) 2020-11-02 00:18:00 Test Item Value Reference Range Interpretation Comme nts POCT GP A STREP (test code = neg Negative - Negative 53154-0) BENI (test code = BENI) accurate development and interpretation of all internal controls Lab Interpretation (test code = Normal 13156-0) [facility] [id number] 17:13:52 Impression: 1. ?Normal MRI brain.Exam: MR BRAIN WO CONTRAST Clinical History: see above Altered level of consciousness (LOC),unexplained Technique:Routine MR brain without contrast Comparison: None Findings: Diffusion-weighted images are within normal limits. There is no evidenceof an acute infarction. The craniocervical junction, upper cervical regionare within normal limits.The sella, skull baseare within normal limits. The FLAIR imaging does not demonstrate any focal brain lesions. Ventriclesare normal. There are no extra- axial collections. Brainstem, cerebellum are normal. IACs, CP angles are within normal limits. Intracranial flow voids are within normal limits. The gradient- echo images do not demonstrate any evidence of intracranialhemorrhage.The coronal T2 images demonstrate a normal appearance of the sella, IACsand CP angles. [facility], Radiant Results Inft User - 05/23/2020 12:14 PM CDTExam: MR BRAIN WO CONTRASTClinical History: see above Altered level of consciousness (LOC),unexplainedTechnique:Routine MR brain without contrastComparison: NoneFindings: Diffusion-weighted images are within normal limits. There is no evidenceof an acute infarction. The craniocervical junction, upper cervical regionare within normal limits.The sella, skull base are within normal limits.The FLAIR imaging does not demonstrate any focal brain lesions. Ventriclesare normal. There are no extra-axial collections.Brainstem, cerebellum are normal. IACs, CP angles are within normal limits.Intracranial flow voids are within normal limits.The gradient-echo images do not demonstrate any evidence of intracranialhemorrhage.The coronal T2 images demonstrate a normal appearance of the sella, IACsand CP angles.IMPRESSIONImpression:1. Normal MRI brain.[facility]
--- NOTE | 2021-08-11 18:01 | RAD REPORT ---
EXAM DESCRIPTION: RAD - Chest Pa And Lat (2 Views) - 08/11/2021 5:35 pm CLINICAL HISTORY: COUGH Chest pain. COMPARISON: <Comparisons> FINDINGS: The lungs are clear. The heart is normal in size. No displaced fractures. IMPRESSION: No acute or concerning finding suspected.
[2021-08-11 18:13] LABS: SARS-COV-2 RT PCR NEGATIVE (NEGATIVE)
--- NOTE | 2021-08-11 18:28 | ER ---
Nurse's Notes [facility] Name: Miriam Lennon Age: 35 yrs Sex: Female : 1985 Arrival Date: 08/11/2021 Time: 16:26 Bed Waiting Private MD: Diagnosis: Acute bronchitis, unspecified Presentation: 08/11 16:46 Chief complaint: Patient states: sore throat and productive cough that began "a couple ss days ago". Pt also reports R sided chest wall pain. Coronavirus screen: Client denies travel out of the [place] in the last 14 days. Ebola Screen: Patient denies exposure to infectious person. Patient denies travel to an Ebola-affected area in the 21 days before illness onset. Initial Sepsis Screen: Does the patient meet any 2 criteria? No. Patient's initial sepsis screen is negative. Does the patient have a suspected source of infection? No. Patient's initial sepsis screen is negative. Risk Assessment: Do you want to hurt yourself or someone else? Patient reports no desire to harm self or others. Onset of symptoms was August 09, 2021. 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 - Social history:: Smoking status: Patient denies any tobacco usage or history of. Screenin:36 Abuse screen: Denies threats or abuse. Denies injuries from another. Nutritional ss screening: No deficits noted. Tuberculosis screening: Never had TB. Fall Risk None identified. Assessment: 16:46 General: Appears uncomfortable, Behavior is calm, cooperative, Reports fever for 1-2 ss days, feeling ill for 1-2 days. Pain: Complains of pain in right lateral posterior chest and right lateral anterior chest Pain currently is 6 out of 10 on a pain scale. Neuro: Level of Consciousness is awake, alert, obeys commands, Oriented to person, place, time, situation. Cardiovascular: Capillary refill < 3 seconds is brisk in bilateral fingers. Respiratory: Airway is patent Respiratory effort is even, unlabored, Respiratory pattern is regular, symmetrical. Respiratory: Reports cough that is pain with cough. GI: Patient currently denies diarrhea, nausea, vomiting. EENT: Throat is clear. Derm: Skin is pink, warm \\T\\ dry. normal. 18:36 Reassessment: Patient appears in no apparent distress at this time. Patient and/or ss family updated on plan of care and expected duration. Pain level reassessed. Patient is alert, oriented x 3, equal unlabored respirations, skin warm/dry/pink. Vital Signs: 16:46 BP 141 / 97; Pulse 99; Resp 17; Temp 98.6(TE); Pulse Ox 100% on R/A; Weight 58.97 kg; ss Height 5 ft. 9 in. (175.26 cm); Pain 6/10; 16:46 Body Mass Index 19.20 (58.97 kg, 175.26 cm) ED Course: 16:26 Patient arrived in ED. kc5 16:44 Chelsea Morton FNP-C [facility]. kb 16:44 Mookie Brooks MD is Attending Physician. kb 16:48 Triage completed. ss 16:48 Arm band placed on left wrist. ss 17:35 Chest Pa And Lat (2 Views) XRAY In Process Unspecified. EDMS 18:36 Jennifer Medina, DELMAR is Primary Nurse. ss 18:36 Patient has correct armband on for positive identification. Bed in low position. Call ss light in reach. 18:36 No provider procedures requiring assistance completed. Patient did not have IV access ss during this emergency room visit. Administered Medications: No medications were administered Outcome: 18:27 Discharge ordered by . kb 18:36 Discharged to home ambulatory. ss 18:36 Condition: good 18:36 Discharge instructions given to patient, Instructed on discharge instructions, follow up and referral plans. medication usage, Demonstrated understanding of instructions, follow-up care, medications, Prescriptions given X 3. 18:39 Patient left the ED. ss Signatures: Dispatcher [employer] EDMS Chelsea Morton FNP-C FNP-Ckb Smirch, Shelby, RN RN Mahsa Dominguez kc5 Corrections: (The following items were deleted from the chart) 16:48 16:48 PSHx: None; ss ss
--- NOTE | 2021-08-11 18:28 | EDPHYS ---
Physician Documentation [facility] [place], [place] Name: Miriam Lennon Age: 35 yrs Sex: Female : 1985 Arrival Date: 08/11/2021 Time: 16:26 Bed Waiting Private MD: YUNG Physician Mookie Brooks HPI: 08/11 18:26 This 35 yrs old Female presents to ER via Ambulatory with complaints of Sore Throat, kb Cough, Fever, Shortness Of Breath. 18:26 The patient presents with sore throat. The patient describes throat pain as constant. kb Onset: The symptoms/episode began/occurred 4 day(s) ago. Severity of symptoms: At their worst the symptoms were moderate, in the emergency department the symptoms are unchanged. Modifying factors: The symptoms are alleviated by nothing, the symptoms are aggravated by nothing, Patient's oral intake status: good. Associated signs and symptoms: Pertinent positives: chest pain, cough, fever, Sore throat. The patient has not experienced similar symptoms in the past. The patient has not recently seen a physician. 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 - Social history:: Smoking status: Patient denies any tobacco usage or history of. ROS: 18:26 Abdomen/GI: Negative for abdominal pain, nausea, vomiting, diarrhea, and constipation. kb 18:26 Constitutional: Positive for fever. 18:26 ENT: Positive for sore throat. 18:26 Cardiovascular: Positive for chest pain, with cough, Negative for edema, orthopnea, palpitations, paroxysmal nocturnal dyspnea. 18:26 Respiratory: Positive for cough, Negative for dyspnea on exertion, hemoptysis, orthopnea, pleurisy, shortness of breath, sputum production, wheezing. 18:26 All other systems are negative. Exam: 18:25 Constitutional: This is a well developed, well nourished patient who is awake, alert, kb and in no acute distress. Head/Face: Normocephalic, atraumatic. ENT: Moist Mucous membranes Cardiovascular: Regular rate and rhythm with a normal S1 and S2. No gallops, murmurs, or rubs. No pulse deficits. Abdomen/GI: Soft, non-tender. No distention Skin: Warm, dry with normal turgor. Normal color. MS/ Extremity: Pulses equal, no cyanosis. Neurovascular intact. Full, normal range of motion. Neuro: Awake and alert, GCS 15, oriented to person, place, time, and situation. Moves all extremities. Normal gait. Psych: Awake, alert, with orientation to person, place and time. Behavior, mood, and affect are within normal limits. 18:25 Respiratory: the patient does not display signs of respiratory distress, Respirations: normal, Breath sounds: wheezing: inspiratory that is mild, is heard in the right middle lobe and right posterior middle lobe. Vital Signs: 16:46 BP 141 / 97; Pulse 99; Resp 17; Temp 98.6(TE); Pulse Ox 100% on R/A; Weight 58.97 kg; ss Height 5 ft. 9 in. (175.26 cm); Pain 6/10; 16:46 Body Mass Index 19.20 (58.97 kg, 175.26 cm) ss MDM: 16:50 Patient medically screened. kb 18:16 Data reviewed: vital signs, nurses notes. Data interpreted: Pulse oximetry: on room air kb is 100 %. Interpretation: normal. Counseling: I had a detailed discussion with the patient and/or guardian regarding: the historical points, exam findings, and any diagnostic results supporting the discharge/admit diagnosis, lab results, radiology results, the need for outpatient follow up, a family practitioner, to return to the emergency department if symptoms worsen or persist or if there are any questions or concerns that arise at home. 08/11 16:49 Order name: COVID-19/FLU A+B (Document "Date of Onset" if Symptomatic) kb 08/11 16:49 Order name: Strep kb 08/11 16:49 Order name: Chest Pa And Lat (2 Views) XRAY; Complete Time: 18:03 kb 08/11 16:50 Order name: COVID-19/FLU A+B; Complete Time: 18:16 EDMS 08/11 16:50 Order name: Group A Streptococcus Rapid Sc; Complete Time: 17:37 EDMS 08/11 17:34 Order name: Throat Culture EDMS Administered Medications: No medications were administered Disposition: 08/12 08:36 Co-signature as Attending Physician, Mookie Brooks MD I agree with the assessment and andrey plan of care. Disposition Summary: 08/11/21 18:27 Discharge Ordered Location: Home kb Condition: Stable kb Diagnosis - Acute bronchitis, unspecified kb Followup: kb - With: Emergency Department - When: As needed - Reason: Worsening of condition Followup: kb - With: Private Physician - When: 2 - 3 days - Reason: Recheck today's complaints, Continuance of care, Re-evaluation by your physician Discharge Instructions: - Discharge Summary Sheet kb - Acute Bronchitis, Adult, [id number] kb Forms: - Medication Reconciliation Form kb - Thank You Letter kb - Antibiotic Education kb - Prescription Opioid Use kb Prescriptions: - albuterol sulfate 90 mcg/actuation Inhalation HFA aerosol inhaler - inhale 2 puff by INHALATION route every 4-6 hours As needed; 1 Inhaler; kb Refills: 0, Product Selection Permitted - Prednisone 20 mg Oral Tablet - take 1 tablet by ORAL route once daily for 5 days; 5 tablet; Refills: 0, kb Product Selection Permitted - Tessalon Perles 100 mg Oral Capsule - take 1 capsule by ORAL route every 8 hours As needed; 15 capsule; Refills: 0, kb Product Selection Permitted Signatures: Dispatcher [employer] EDChelsea Guadalupe, QUANTITATIVE STRATEGY ANALYST-C QUANTITATIVE STRATEGY ANALYST-Mookie Ledbetter MD MD cha Smirch, Shelby, RN RN ss Corrections: (The following items were deleted from the chart) 08/11 16:48 16:48 PSHx: None; ss ss
[2021-08-11 18:44] VITALS: BP 141/97; TEMP 98.6; O2SAT 100
== END 2021-08-11 18:39 | disposition home or self-care (01) ==
LOC: ER 16:23
DX: J20.9 Acute bronchitis, unspecified (principal); E03.9 Hypothyroidism, unspecified; Z20.822 Contact with and (suspected) exposure to COVID-19
CPT/HCPCS: 87070; 87081; 0240U; 71046; 99283

== ENCOUNTER 2022-11-21 16:04 | Emergency (ER) | payer OTHER ==
--- OUTSIDE RECORDS SUMMARY | 2022-11-21 16:16 | XMS REPORT | Continuity of Care Document ---
:1985 Author Organization [facility] t Address [address] [facility] [address] [place] [address] Care Team Providers Name Role Phone SOBEIDA ARTEAGA Primary Care Physician Unavailable Gurpreet Schultz Attending Clinician Unavailable SOBEIDA ARTEAGA Attending Clinician Unavailable SAMM BLOUNT Attending Clinician Unavailable NYDIA ARTHUR Attending Clinician Unavailable Nydia Schwarz Attending Clinician [phone] Doctor Unassigned, Nason Attending Clinician Unavailable ELIZABETH DOVER Attending Clinician Unavailable Merari Layne Attending Clinician MERARI GROVER Attending Clinician Unavailable Provider, [facility] Attending Clinician Unavailable Chen Fu Attending Clinician Dg Horn MD Attending Clinician DG HORN Attending Clinician Unavailable DG HORN Attending Clinician Unavailable Pob, [facility] Main Attending Clinician Unavailable Payers Payer Name Policy Type Policy Number Effective Date Expiration Date [facility] 2 [id number] 2020 Common 00:00:00 [facility] [employer] [id number] 2019 00:00:00 MEDICAID [place] [id number] 2019 Common 00:00:00 Spirit - [facility] MEDICAID MC [id number] 2019 Common 00:00:00 Spirit - [facility] MEDICAID MC [id number] 2019 Common 00:00:00 Spirit - [facility] MEDICAID MC [id number] 2019 Common 00:00:00 [facility] Problems Condition Condition Condition Status Onset Resolution Last Treating Co mments Source Name Details Category Date Date Treatment Clinician Date Other Other Disease Active Univers general general 7 [place] of counseling [place] and advice and advice 00 [place] dical for for Branch contracept contracept roe roe management management Irregular Irregular Disease Active Uni vers menstrual menstrual 03-17 ity of cycle cycle 00:00: [place] 00 Medical Branch Other Other Disease Active Univers specified specified 309 ity of hypothyroi [place]othyro[place] dis[place] dism Medical Branch History of History of Disease Active 2018-09 Overview : Univers 1-15 Formattin ity of section section 00:00: g of this [place] 00 note Medical might be Branch different from the original. x2 [id number] Enlarged Problem Common thyroid [facility] [id number] Acquired Problem Comm on hypothyroi [facility] dism [facility] Allergies, Adverse Reactions, Alerts Allergy Allergy Status Severity Reaction(s) Onset Inactive Treating Comm ents Source Name Type Date Date Clinician NO KNOWN Drug Active Univers ALLERGIE Class ity of S [facility] Social History Social Habit Start Date Stop Date Quantity Comments Source History of Current Smoker Common Spi rit - Tobacco Use [facility] Sex Assigned At Common Sp karthik - [facility] Exposure to Not sure University of SARS-CoV-2 [place] Medical (event) Branch Alcohol intake 2021-09-08 2021-09-08 Current University of 00:00:00 00:00:00 non-drinker of [facility] alcohol Branch (finding) Tobacco use and 2019-03-08 2019-03-08 Never used Universit y of exposure 00:00:00 00:00:00 [facility] Smoking Status Start Date Stop Date Source Current Smoker 2022-03-06 00:00:00 Common Spiri t - [facility] Former smoker 2019-03-08 00:00:00 2019-03-08 00:00:00 [facility] Medical Branch Medications Ordered Filled Start Stop Current Ordering Indication Dosage Frequency Signature Comments Components Source Medication Medication Date Date Medication? Clinician (SIG) Name Name levonorgest 2020-09 Yes [id number] 1{tbl} Take 1 Univers rel-ethinyl 2-27 tablet by ity of estradiol 00:00: mouth [place] (SRONYX) 00 daily. Medical 0.1-20 Branch mg-mcg per tablet Kenalog Kenalog No 40mg Common (Triamcinol (Triamcinol 8-25 S pirit one) one) 00:00: - CHI 00 [facility] Cetirizine Cetirizine No 1{table QD Cetirizine HCl 10 MG HCl 10 MG 8-25 t} HCl 10 MG 00:00: 00 Triamcinolo Triamcinolo 0 No 1{appli BID Triamcinol ne ne 8-25 cation} one Acetonide Acetonide 00:00: Acetonide 0.1 % 0.1 % 00 0.1 % Kenalog Kenalog No 40mg Common (Triamcinol (Triamcinol 8-25 S pirit one) one) 00:00: - [facility]I 00 [facility] Triamcinolo Triamcinolo 0 No 1{appli BID Triamcinol ne ne 8-25 cation} one Acetonide Acetonide 00:00: Acetonide 0.1 % 0.1 % 00 0.1 % Cetirizine Cetirizine 0 No 1{table QD Cetirizine HCl 10 MG HCl 10 MG 8-25 t} HCl 10 MG 00:00: 00 Triamcinolo Triamcinolo 2020-0 No 1{appli BID Triamcinol ne ne 8-25 cation} one Acetonide Acetonide 00:00: Acetonide 0.1 % 0.1 % 00 0.1 % Cetirizine Cetirizine No 1{table QD Cetirizine HCl 10 MG HCl 10 MG 8-25 t} HCl 10 MG 00:00: 00 Triamcinolo Triamcinolo No 1{appli BID Triamcinol ne ne 8-25 cation} one Acetonide Acetonide 00:00: Acetonide 0.1 % 0.1 % 00 0.1 % Cetirizine Cetirizine No 1{table QD Cetirizine HCl 10 MG HCl 10 MG 8-25 t} HCl 10 MG 00:00: 00 Cetirizine Cetirizine No 1{table QD Cetirizine HCl 10 MG HCl 10 MG 8-25 t} HCl 10 MG 00:00: 00 Triamcinolo Triamcinolo No 1{appli BID Triamcinol ne ne 8-25 cation} one Acetonide Acetonide 00:00: Acetonide 0.1 % 0.1 % 00 0.1 % Triamcinolo Triamcinolo No 1{appli BID Triamcinol ne ne 8-25 cation} one Acetonide Acetonide 00:00: Acetonide 0.1 % 0.1 % 00 0.1 % Cetirizine Cetirizine No 1{table QD Cetirizine HCl 10 MG HCl 10 MG 8-25 t} HCl 10 MG 00:00: 00 levothyroxi 2019-1 Yes [id number] 50ug Take 1 Univers ne 2-02 tablet by ity of (SYNTHROID) 00:00: mouth [place] 50 mcg 00 every Medical tablet morning. Branch Benadryl Benadryl No 1{table QD Benadryl Allergy 25 Allergy 25 t_at_be Allergy 25 MG MG dtime_a MG s_neede d} Centrum - Centrum - No QD Centrum - Levothyroxi Levothyroxi No QD Levothyrox ne Sodium ne Sodium ine Sodium 75 MCG 75 MCG 75 MCG Benadryl Benadryl No 1{table QD Benadryl Allergy 25 Allergy 25 t_at_be Allergy 25 MG MG dtime_a MG s_neede d} Centrum - Centrum - No QD Centrum - Levothyroxi Levothyroxi No QD Levothyrox ne Sodium ne Sodium ine Sodium 75 MCG 75 MCG 75 MCG Benadryl Benadryl No 1{table QD Benadryl Allergy 25 Allergy 25 t_at_be Allergy 25 MG MG dtime_a MG s_neede d} Centrum - Centrum - No QD Centrum - Levothyroxi Levothyroxi No QD Levothyrox ne Sodium ne Sodium ine Sodium 75 MCG 75 MCG 75 MCG Levothyroxi Levothyroxi No QD Levothyrox ne Sodium ne Sodium ine Sodium 75 MCG 75 MCG 75 MCG Centrum - Centrum - No QD Centrum - Benadryl Benadryl No 1{table QD Benadryl Allergy 25 Allergy 25 t_at_be Allergy 25 MG MG dtime_a MG s_neede d} Levothyroxi Levothyroxi No QD Levothyrox ne Sodium ne Sodium ine Sodium 75 MCG 75 MCG 75 MCG Centrum - Centrum - No QD Centrum - Euthyrox 75 Euthyrox 75 No Euthyrox MCG MCG 75 MCG Levothyroxi Levothyroxi No QD Levothyrox ne Sodium ne Sodium ine Sodium 75 MCG 75 MCG 75 MCG Benadryl Benadryl No 1{table QD Benadryl Allergy 25 Allergy 25 t_at_be Allergy 25 MG MG dtime_a MG s_neede d} Centrum Centrum Yes Gurpreet not Common Schultz defined Spirit - [facility] Levothyroxi Levothyroxi Yes Gurpreet 1 tablet Common ne Sodium ne Sodium Schultz in the Sp karthik morning on - CHI an empty [facility] Centrum - Centrum - No QD Centrum - Euthyrox 75 Euthyrox 75 No Euthyrox MCG MCG 75 MCG Levothyroxi Levothyroxi No QD Levothyrox ne Sodium ne Sodium ine Sodium 75 MCG 75 MCG 75 MCG Benadryl Benadryl No 1{table QD Benadryl Allergy 25 Allergy 25 t_at_be Allergy 25 MG MG dtime_a MG s_neede d} Centrum Centrum No Centrum Levothyroxi Levothyroxi No QD Levothyrox ne Sodium ne Sodium ine Sodium 75 MCG 75 MCG 75 MCG Immunizations Ordered Filled Immunization Date Status Comments Sourc e Immunization Name Name Lina Mitchellshanon 2021-05-07 Completed Common Spirit - (Triamcinolone) (Triamcinolone) 10:53:00 [facility] Kenalog Kenalog 2021-05-07 Completed Common [facility] - (Triamcinolone) (Triamcinolone) 10:53:00 [facility] Kenalog Kenalog 2021-05-07 Completed Common [facility] - (Triamcinolone) (Triamcinolone) 10:53:00 [facility] Influenza Virus 2019-07-28 Completed Universit y of Vaccine Quad .5 mL 00:00:00 [facility] 6+ MO Branch Vital Signs Vital Name Observation Time Observation Value Comments Source height 2022-03-10 11:00:00 69 [in_i] [facility] weight 2022-03-10 11:00:00 133 [lb_av] [facility] temperature 2022-03-10 11:00:00 97 [degF] [facility] bmi 2022-03-10 11:00:00 19.64 kg/m2 [facility] height 2021-10-02 11:30:00 69 [in_i] [facility] weight 2021-10-02 11:30:00 133 [lb_av] [facility] temperature 2021-10-02 11:30:00 98 [degF] [facility] bmi 2021-10-02 11:30:00 19.64 kg/m2 [facility] Systolic blood 2021-09-08 21:17:00 125 mm[Hg] Univer sity of pressure [facility] Diastolic blood 2021-09-08 21:17:00 86 mm[Hg] Unive rsity of [facility] Heart rate 2021-09-08 21:17:00 83 /min Universi [facility] Body temperature 2021-09-08 21:17:00 36.78 [facility] Res[facility] rate 2021-09-08 21:17:00 16 /min [facility] Body height 2021-09-08 21:17:00 175.3 cm [facility] Body weight 2021-09-08 21:17:00 60.555 kg [facility] BMI 2021-09-08 21:17:00 19.71 kg/m2 [facility] height 2021-05-07 09:50:00 69 [in_i] Common [facility] weight 2021-05-07 09:50:00 136.6 [lb_av] [facility] temperature 2021-05-07 09:50:00 97.4 [degF] Common [facility] bmi 2021-05-07 09:50:00 20.17 kg/m2 [facility] oximetry 2021-05-07 09:50:00 98 % [facility] respiratory rate 2021-05-07 09:50:00 18 /min Comm on [facility] blood pressure 2021-05-07 09:50:00 100 mm[Hg] Common [facility] - systolic [facility] blood pressure 2021-05-07 09:50:00 70 mm[Hg] Common [facility] - diastolic [facility] height 2021-04-01 13:30:00 69 [in_i] Common [facility] weight 2021-04-01 13:30:00 139.8 [lb_av] [facility] temperature 2021-04-01 13:30:00 98.2 [degF] Common [facility] bmi 2021-04-01 13:30:00 20.64 kg/m2 [facility] oximetry 2021-04-01 13:30:00 98 % Common [facility] respiratory rate 2021-04-01 13:30:00 16 /min Comm on [facility] blood pressure 2021-04-01 13:30:00 119 mm[Hg] Common [facility] - systolic [facility] blood pressure 2021-04-01 13:30:00 70 mm[Hg] Common [facility] Procedures Procedure Date / Time Performed Performing Clinician Sourseverino e POCT TEST 2021-09-08 22:33:00 Nydia Arthur [facility] Encounters Start End Encounter Admission Attending Care Care Encounter Source Date/Time Date/Time Type Type Clinicians Facility Department ID 2022-11-13 Outpatient Schultz, STLMLC STLMLC [id number] Common 10:13:00 Gurpreet 02310 [facility] 2021-10-08 Outpatient Schultz, STLMLC STLMLC [id number] Common 13:29:00 Gurpreet 24959 [facility] 2021-10-08 Outpatient Schultz, STLMLC STLMLC [id number] Common 12:59:03 Gurpreet 92399 [facility] 2021-10-08 Outpatient Schultz, STLMLC STLMLC [id number] Common 12:52:41 Gurpreet 43416 [facility] 2021-10-08 Outpatient Schultz, STLMLC STLMLC [id number] Common 12:51:59 Gurpreet 19497 [facility] 2021-10-08 Outpatient Schultz, STLMLC STLMLC [id number] Common 12:44:44 Gurpreet 40834 [facility] 2021-10-08 Outpatient Schultz, STLMLC STLMLC [id number] Common 12:40:34 Gurpreet 10235 [facility] 2021-10-08 Outpatient Schultz, STLMLC STLMLC [id number] Common 12:40:27 Gurpreet 75224 [facility] 2021-10-08 Outpatient Schultz, STLMLC STLMLC [id number] Common 11:12:06 Gurpreet 70711 [facility] 2022-09-11 2022-09-11 (TEL) STLMLC STLC [id number] Co mmon 00:00:00 00:00:00 [facility] 2022-07-16 2022-07-16 Outpatient Reanna [facility] [id number] Univers 12:45:00 12:45:00 SAMM ity of [facility] 2022-03-10 2022-03-10 OFFICE STLMLC STLMLC [id number] Co mmon 00:00:00 00:00:00 VISIT EST Spir it PT LEVEL 3 - [facility] 2021-12-08 2021-12-08 Outpatient R JERSON, [facility] [id number] Univers 10:30:00 10:30:00 NYDIA reeves o [facility] 2021-10-02 2021-10-02 OFFICE STLMLC STLMLC [id number] Co mmon 00:00:00 00:00:00 VISIT EST Spir it PT LEVEL 3 - [facility] 2021-09-08 2021-09-08 Outpatient R JERSON, [facility] [id number] Univers 15:00:00 16:05:45 NYDIA urrutia [facility] 2021-09-08 2021-09-08 [facility] [id number] Univers 15:00:00 16:05:45 Visit Nydia Chen WEIGHT AND TEST BAR CLERK [id number] ity of [facility] [id number] Earnest as MATERNAL [phone] [facility] ical & CHILD [address] [place] [address] 2021-09-08 2021-09-08 Orders Doctor MICHELLE [id number] Univers 00:00:00 00:00:00 Only Unassigned, VINEET [id number] ity of [place] [facility] [id number] Earnest as [phone] [address] 2021-09-04 2021-09-04 Outpatient R STANISLAW, [facility] [id number] Univers 14:45:00 14:45:00 ELIZABETH reeves o [facility] 2021-08-25 2021-08-25 Outpatient R JERSON, [facility] [id number] Univers 10:45:00 10:45:00 NYDIA reeves o [facility] 2021-07-08 2021-07-08 (TEL) STLMLC STLMLC [id number] Co mmon 00:00:00 00:00:00 [facility] 2021-05-12 2021-05-12 Outpatient Reanna ARTHUR [facility] [id number] Univers 10:45:00 10:45:00 NYDIA reeves o [facility] 2021-05-07 2021-05-07 OFFICE STLMLC STLMLC [id number] Co mmon 00:00:00 00:00:00 VISIT EST Spir it PT LEVEL 3 [facility] 2021-05-06 2021-05-06 (TEL) STLMLC STLMLC [id number] Co mmon 00:00:00 00:00:00 [facility] 2021-04-01 2021-04-01 OFFICE STLMLC STLMLC [id number] Co mmon 00:00:00 00:00:00 VISIT EST Spir it PT LEVEL 3 [facility] 2021-03-17 2021-03-17 Office [facility] [id number] Univers 08:43:06 09:29:43 Visit Nydia Chen WEIGHT AND TEST BAR CLERK [id number] ity of REGIONAL [id number] Earnest as MATERNAL [phone] [facility] ical & CHILD [address] [place] [address] 2021-03-17 2021-03-17 Outpatient Reanna ARTHUR [facility] [id number] Univers 08:45:00 08:45:00 NYDIA urrutia [facility] 2020-12-26 2020-12-26 Outpatient STLC STLC [id number] Common 00:00:00 00:00:00 [facility] 2020-11-25 2020-11-25 Outpatient STLMLC STLMLC [id number] Common 00:00:00 00:00:00 [facility] 2020-11-19 2020-11-19 Office [facility] [id number] Univers 15:15:58 16:03:57 Visit Merari Roman WEIGHT AND TEST BAR CLERK [id number] it y of REGIONAL [id number] Earnest as MATERNAL [phone] Med ical & CHILD 107 [facility] 2020-11-19 2020-11-19 Outpatient Reanna GROVER [facility] [id number] Univers 15:15:00 15:15:00 MERARI [facility] 2020-11-01 2020-11-01 Urgent Provider, [facility] [id number] Univers 15:43:26 16:35:20 [facility] [id number] [facility] [id number] Earnest as Professio [phone] Me dical nal 044 [address] [employer] [facility] 2020-11-01 2020-11-01 Outpatient R [facility] [id number] Univers 15:40:00 15:40:00 [facility] 2020-09-02 2020-09-02 Office Kory [facility] [id number] Univers 11:22:43 12:04:51 Visit Dg Stovall [place] [id number] [facility] [id number] Profess[place] [phone] Ny dical nal 092 [facility] 2020-09-02 2020-09-02 Outpatient DG [place] [facility] [id number] Univers 11:20:00 11:20:00 [facility] 2020-08-19 2020-08-19 Outpatient DG [place] [facility] [id number] Univers 11:20:00 11:20:00 DG HORN [facility] 2020-08-06 2020-08-06 Outpatient DG [place] [facility] [id number] Univers 14:00:00 14:00:00 DG HORN [facility] 2020-07-11 2020-07-11 Outpatient DG [place] [facility] [id number] Univers 14:00:00 14:00:00 DG HORN [facility] 2020-06-27 2020-06-27 Outpatient DG [place] [facility] [id number] Univers 14:00:00 14:00:00 DG HORN williamalida [facility] 2020-06-07 2020-06-07 Telephone Kory [facility] [id number] Univers 00:00:00 00:00:00 Dg Powers [id number] ity of [id number] Profess[place] [phone] Ny dical nal 092 [facility] 2020-06-03 2020-06-03 Outpatient STLMLC STLMLC [id number] Common 00:00:00 00:00:00 [facility] 2020-05-23 2020-05-23 Hospital Kory [facility] [id number] Univers 10:17:19 23:59:00 Encounter Dg Powers [id number] ity of [place] [id number] [place] [id number] [facility] 804 Home 2020-05-23 2020-05-23 Bull Riveter Amaris, Adc Lab Main [facility] [id number] Univers 10:21:20 10:36:20 Visit KoryDg 350.1.13 .10 ity of [place] [id number] Profess[place] [phone] Ny dical nal 353 [facility] 2020-05-23 2020-05-23 Outpatient R DG HORN [facility] [id number] Univers 00:00:00 00:00:00 DG HORN lala [facility] 2020-05-23 2020-05-23 Orders Doctor MARTINEZ [id number] Univers 00:00:00 00:00:00 Only Unassigned, VINEET [id number] ity of [place] [facility] [id number] Earnest as [phone] [facility] 009 Home 2020-05-17 2020-05-17 Office Kory [facility] [id number] Univers 12:56:45 14:18:24 Visit Dg Powers [id number] ity of [place] [id number] Profess[place] [phone] Ny dical nal 092 Branch [facility] 2020-05-17 2020-05-17 Outpatient DG [place] [facility] [id number] Univers 13:00:00 13:00:00 DG HORN ity [facility] 2020-04-24 2020-04-24 Orders Doctor MICHELLE [id number] Univers 00:00:00 00:00:00 Only Unassigned, VINEET [id number] ity of [place] [facility] [id number] Earnest as [phone] [address] 2020-04-17 2020-04-17 Outpatient [facility] [id number] Common 13:15:00 13:15:[address] Sp[address] [facility] 2019-11-30 2019-11-30 Outpatient [facility] [id number] Common 13:15:00 13:15:[address] Spir [address] [facility] 2019-11-16 2019-11-16 Outpatient [facility] [id number] Common 10:00:00 10:00:[address] Spir [address] [facility] Results Test Description Test Time Test Comments Results Result Comments Source POCT TEST 2021-09-08 22:33:00 Test Item Value Reference Range Interpretation Comme nts POCT PREG (test code = 1605) Negative On board controls acceptable with C Line (test code = 3574) Yes POCT PREG LOT # (test code = 3575) POCT PREG TEST DATE (test code = 3576) [facility]
--- NOTE | 2022-11-21 17:12 | RAD REPORT ---
EXAM DESCRIPTION: US - Extremity Venous Uni Ltd - 11/21/2022 4:53 pm CLINICAL HISTORY: Swelling COMPARISON: None. TECHNIQUE: Real-time sonographic evaluation of the left lower extremity deep venous system was perfo rmed. FINDINGS: Normal compressibility, flow augmentation, phasic flow and spontaneous flow is identified in the left lower extremity deep venous system. No intraluminal filling defects seen. IMPRESSION: No DVT in the left lower extremity.
[2022-11-21 17:18] LABS: Hematocrit 30.8 % (36.0-45.0); Lymphocytes % 15.4 % (15.3-44.8); MCV 82.2 fL (80-100); MPV 7.5 fL (7.6-11.3); RBC Red Blood Cell Count 3.75 M/uL (3.86-4.86)
[2022-11-21 17:29] LABS: Potassium 3.6 mmol/L (3.5-5.1)
--- NOTE | 2022-11-21 18:08 | RAD REPORT ---
EXAM DESCRIPTION: US - Extremity Nonvascular Limited - 11/21/2022 5:57 pm CLINICAL HISTORY: PAIN COMPARISON: None TECHNIQUE: Focused ultrasound along the left tibia and fibula FINDINGS: Subcutaneous edema is present. Small ovoid fluid collection measuring 11 mm x 3 millimeter s noted. This is probably 2 small during. IMPRESSION: Skin thickening and subcutaneous edema at the site of concern with small fluid collectio n that could represent a small abscess. At this small size, drainage may not be necessary.
[2022-11-21 19:36] VITALS: BP 118/85; O2SAT 100
--- NOTE | 2022-12-04 16:03 | ER ---
Nurse's Notes [facility] Name: Miriam Lennon Age: 37 yrs Sex: Female : 1985 Arrival Date: 11/21/2022 Time: 16:07 Bed 13 Private MD: Diagnosis: Pain in left lower leg Presentation: 11/21 16:11 Chief complaint: Patient states: "about a month ago I got bite by a dog in the left mb9 leg. It got swollen and aches for the past 3-4 days.". Coronavirus screen: Vaccine status: Patient reports receiving the 2nd dose of the covid vaccine. Ebola Screen: No symptoms or risks identified at this time. Initial Sepsis Screen: Does the patient meet any 2 criteria? No. Patient's initial sepsis screen is negative. Does the patient have a suspected source of infection? No. Patient's initial sepsis screen is negative. Risk Assessment: Do you want to hurt yourself or someone else? Patient reports no desire to harm self or others. Onset of symptoms was November 19, 2022. 16:11 Method Of Arrival: Ambulatory [facility] 16:11 Acuity: JOSE G 3 9 Triage Assessment: 18:00 General: Appears in no apparent distress. Behavior is calm, cooperative. Pain: db Complains of pain in lateral aspect of left calf. Musculoskeletal: Swelling present in lateral aspect of left calf. Injury Description: Bite sustained to left leg and lateral aspect of left calf is from animal. [employer]: 16:15 LMP 11/21/2022 9 Historical: - Allergies: 16:14 No Known Allergies; mb9 - Home Meds: 16:14 levothyroxine 75 mcg cap 1 cap once daily [Active]; Bactrim DS Oral [Active]; mb9 Clindamycin Oral [Active]; - PMHx: 16:14 Hypothyroidism; mb9 - PSHx: 16:14 section; mb9 - Immunization history:: Adult Immunizations up to date. - Social history:: Smoking status: Patient denies any tobacco usage or history of. Screenin:40 [facility] ED Fall Risk Assessment (Adult) History of falling in the last 3 months, db including since admission No falls in past 3 months (0 pts) Confusion or Disorientation No (0 pts) Intoxicated or Sedated No (0 pts) Impaired Gait No (0 pts) Mobility Assist Device Used No (0 pt) Altered Elimination No (0 pt) Score/Fall Risk Level 0 - 2 = Low Risk Oriented to surroundings, Maintained a safe environment. Abuse screen: Denies threats or abuse. Denies injuries from another. Nutritional screening: No deficits noted. Tuberculosis screening: No symptoms or risk factors identified. Assessment: 18:00 Reassessment: Patient appears in no apparent distress at this time. Patient and/or db family updated on plan of care and expected duration. Pain level reassessed. Patient is alert, oriented x 3, equal unlabored respirations, skin warm/dry/pink. left calf redness from dog bite. General: Appears in no apparent distress. comfortable, Behavior is calm, cooperative. Pain: Complains of pain in lateral aspect of left calf. Neuro: Level of Consciousness is awake, alert, obeys commands, Oriented to person, place, time, situation. Cardiovascular: No deficits noted. Vital Signs: 16:11 BP 132 / 93; Pulse 98; Resp 18; Temp 98(O); Pulse Ox 100% ; Weight 60.33 kg; Height 5 mb9 ft. 9 in. ; Pain 0/10; 18:40 BP 118 / 85; Pulse 89; Resp 16; Pulse Ox 100% on R/A; db 16:11 Body Mass Index 19.64 (60.33 kg, 175.26 cm) mb9 16:11 Pain Scale: Adult mb9 ED Course: 16:07 Patient arrived in ED. jj6 16:14 Triage completed. mb9 16:15 Arm band placed on. mb9 16:17 Jarvis Leon PA is PHCP. m 16:17 Segundo Vega MD is Attending Physician. jmm 16:55 US Extremity Venous Unilateral Ltd In Process Unspecified. EDMS 17:09 Blood Culture Adult (2) Sent. mb9 17:09 BMP Sent. mb9 17:09 CBC with Diff Sent. mb9 17:09 Inserted saline lock: 20 gauge in left antecubital area, using aseptic technique. mb9 17:57 US Extrmty Nonvasular Limited In Process Unspecified. EDMS 18:40 Patient has correct armband on for positive identification. Bed in low position. Call db light in reach. Side rails up X 1. Pulse ox on. NIBP on. 18:40 No provider procedures requiring assistance completed. IV discontinued, intact, db bleeding controlled, No redness/swelling at site. 18:40 Dressings: Bryant non-adherent dressing x 1 lateral aspect of left calf. db 18:45 Valarie Jeffery, RN is Primary Nurse. db Administered Medications: No medications were administered Medication: 16:15 VIS not applicable for this client. mb9 Outcome: 18:21 Discharge ordered by . mayank 18:40 Discharged to home ambulatory. db 18:40 Condition: stable 18:40 Discharge instructions given to patient, Instructed on discharge instructions, follow up and referral plans. 18:49 Patient left the ED. db Signatures: Dispatcher [employer] EDMS Jarvis Leon PA PA jmm Jeffries, Jennifer jj6 Valarie Jeffery, RN RN Kathleen Ramos RN RN mb9 Corrections: (The following items were deleted from the chart) 16:15 16:11 Acuity: JOSE G 4 mb9 mb9 16:16 16:11 Pulse 98bpm; Resp 18bpm; Pulse Ox 100%; Temp 98F Oral; 60.33 kg; Height 5 ft. 9 mb9 in.; BMI: 19.6; Pain 0/10, Adult; mb9
--- NOTE | 2022-12-04 16:03 | EDPHYS ---
Physician Documentation [facility] Name: Miriam Lennon Age: 37 yrs Sex: Female : 1985 Arrival Date: 11/21/2022 Time: 16:07 Bed 13 Private MD: ED Physician Segundo Vega HPI: 11/21 16:20 This 37 yrs old Female presents to ER via Ambulatory with complaints of Leg Injury, Leg jmm Swelling. 16:20 The patient presents with pain. The complaints affect the lateral aspect of left calf. jmm Onset: The symptoms/episode began/occurred gradually. Modifying factors: The symptoms are alleviated by nothing. the symptoms are aggravated by nothing. Is a 37-year-old female with history hypothyroidism the presents emerged part with complaints of left lower leg pain following a dog bite which occurred about a month ago. Patient is currently on a course of oral antibiotics. Patient became concerned when approximately 2 days ago she developed acute swelling to the left lateral calf. Denies any fever or chills. Denies any purulent drainage. [employer] REPA[employer]ER: 16:15 LMP 11/21/2022 mb9 Historical: - Allergies: 16:14 No Known Allergies; mb9 - Home Meds: 16:14 levothyroxine 75 mcg cap 1 cap once daily [Active]; Bactrim DS Oral [Active]; mb9 Clindamycin Oral [Active]; - PMHx: 16:14 Hypothyroidism; mb9 - PSHx: 16:14 section; mb9 - Immunization history:: Adult Immunizations up to date. - Social history:: Smoking status: Patient denies any tobacco usage or history of. ROS: 16:20 Constitutional: Negative for fever, chills, and weight loss, Cardiovascular: Negative jmm for chest pain, palpitations, and edema, Respiratory: Negative for shortness of breath, cough, wheezing, and pleuritic chest pain. 16:20 MS/extremity: Positive for pain, swelling. 16:20 All other systems are negative. Exam: 16:20 Constitutional: This is a well developed, well nourished patient who is awake, alert, jmm and in no acute distress. Head/Face: atraumatic. Eyes: EOMI, no conjunctival erythema appreciated ENT: Moist Mucus Membranes Neck: Trachea midline, Supple Chest/axilla: Normal chest wall appearance and motion. Cardiovascular: Regular rate and rhythm. No edema appreciated Respiratory: Normal respirations, no respiratory distress appreciated Abdomen/GI: Non distended Back: Normal ROM 16:20 Musculoskeletal/extremity: Full dorsalis pedis pulse, compartments are soft, full dorsalis pedis pulse, neurovascular intact. 16:20 Skin: Healing puncture wounds noted to the left lateral calf, mild induration noted no erythema appreciated.. 16:20 Neuro: Orientation: is normal, Mentation: is normal, Memory: is normal. 16:20 Psych: Behavior/mood is pleasant, cooperative. Vital Signs: 16:11 BP 132 / 93; Pulse 98; Resp 18; Temp 98(O); Pulse Ox 100% ; Weight 60.33 kg; Height 5 mb9 ft. 9 in. ; Pain 0/10; 18:40 BP 118 / 85; Pulse 89; Resp 16; Pulse Ox 100% on R/A; db 16:11 Body Mass Index 19.64 (60.33 kg, 175.26 cm) mb9 16:11 Pain Scale: Adult mb9 MDM: 16:20 Patient medically screened. [facility] 18:20 Differential diagnosis: Cellulitis, hematoma, abscess. Data reviewed: vital signs, [facility] nurses notes, lab test result(s), radiologic studies, ultrasound. Counseling: I had a detailed discussion with the patient and/or guardian regarding: the historical points, exam findings, and any diagnostic results supporting the discharge/admit diagnosis, lab results, radiology results, the need for outpatient follow up, to return to the emergency department if symptoms worsen or persist or if there are any questions or concerns that arise at home. ED course: 18-gauge needle was inserted into the site of induration. About 3 mL of blood was removed. Nonpurulent drainage appreciated. Patient did state that her daughter had her prior to developing the swelling. Most likely trauma-based. Patient encouraged to continue oral antibiotics and otherwise given strict return precautions. Patient understood and agrees plan of care.. 11/21 16:21 Order name: CBC with Diff; Complete Time: 17:25 [facility] 11/21 16:21 Order name: BMP; Complete Time: 17:34 [facility] 11/21 16:21 Order name: Lactate w/ 2H reflex if indic.; Complete Time: 17:34 [facility] 11/21 16:21 Order name: Blood Culture Adult (2) [facility] 11/21 16:21 Order name: US Extremity Venous Unilateral Ltd; Complete Time: 17:25 [facility] 11/21 17:29 Order name: US Extrmty Nonvasular Limited; Complete Time: 18:17 [facility] 11/21 16:21 Order name: Saline Lock; Complete Time: 17:09 jm Administered Medications: No medications were administered Disposition: 18:51 Co-signature as Attending Physician, Segundo Vega MD I reviewed the patient's care rt provided by the Advanced Practice Provider and agree with the diagnosis and treatment plan. Disposition Summary: 11/21/22 18:21 Discharge Ordered Location: Home jm Condition: Stable jmm Diagnosis - Pain in left lower leg jmm Followup: m - With: Private Physician - When: As needed - Reason: Recheck today's complaints, Continuance of care, Re-evaluation by your physician Discharge Instructions: - Discharge Summary Sheet jmm - Hematoma jmm - Animal Bite, Adult jmm Forms: - Medication Reconciliation Form [facility] - Thank You Letter jm - Antibiotic Education jmm - Prescription Opioid Use [facility] Signatures: Dispatcher [employer] EDJarvis Kumar PA PA jmm Breneman, Mary Beth RN RN mb9 Segundo Vega MD MD rt
== END 2022-11-21 18:49 | disposition home or self-care (01) ==
LOC: ER 16:04
DX: M79.662 Pain in left lower leg (principal); E03.9 Hypothyroidism, unspecified
CPT/HCPCS: 36415; 76882; 80048; 83605; 85025; 87040; 93971; 99284

== ENCOUNTER → 2023-10-11 | Emergency (ER) | payer OTHER ==
[~2023-10-11] MED LIST: ACETAMINOPHEN 500 MG TAB ONE; DICYCLOMINE HCL 10 MG CAP ONE; NA CHLORIDE 0.9% 1,000 ML ONE
--- OUTSIDE RECORDS SUMMARY | 2023-10-11 22:21 | XMS REPORT | Continuity of Care Document ---
Author Name Unknown Address [address] [facility] [address] [place] [address] [facility] Address [address] [facility] [address] [place] [address] Care Team Providers Care Paintless Dent Repair Technician Name Role Phone CHANDLER SOBEIDA Forte Primary Care Physician Jing Siddiquih Jed Attending Clinician Unavailable SAMM BLOUNT Attending Clinician Unavailmatt maddox AKINNYDIA STEWARD Attending Clinician Unavail able Nydia Schwarz Attending Clinician + Bailey Esposito Attending Clinician KACIE GONZALEZ Attending Clinician Unav ailable Ultrasound, RkMfjed Attending Clinician Kacie Stewart MD Attending Clinician + WYATT SAMS Attending Clinician Unavail able Risk, Smg-Brqhm-Cr/High Attending Clinician Unav ailable Wyatt Sams NP Attending Clinician Vickie Celis Attending Clinician Unavailabl e PIO GUDINO Attending Clinician Unavailable PIO GUDINO Attending Clinician Unavailable Lab, [facility] Attending Clinician Unavailable Alex Adorno MD Attending Clinician [phone] ALEX ADORNO Attending Clinician Unavailable Doctor Unassigned, [place] Attending Clinician U smiley Russell MD, Robby Attending Clinician [phone] BAILEY HORTON Attending Clinician Unavailable Saul WIGGINS, Anya Attending Clinician [phone] ANYA HUGHES Attending Clinician Unavailable Provider, [facility] Temp Attending Clinician Sylvia SOBEIDA Adams Attending Clinician Unavailab ELIZABETH Pineda Attending Clinician Unavailable Tigre CASINO FLOOR SUPERVISOR, Merari Roman Attending Clinician [phone] MERARI GROVER Attending Clinician Unavailabl e Provider, [facility] Attending Clinician Un available Aneanna SALAZAR, Chen Attending Clinician [phone] Dg Horn MD Attending Clinician [phone] DG HORN Attending Clinician Unavail able DG HORN Attending Clinician Unavail able Pob, Ad[facility] Main Attending Clinician Unavailabl e Payers Payer Name Policy Type Policy Number Effective Date Expirati on Date Source TAQUERIA RODGERS [id number] 2023 00[facility]00[id number] 2023 00:00:00 2023 00:00:00 [facility] 2 [id number] 2020 00:00:00 [facility] MEDICAID MC [id number] 2019 00:00:00 [facility] MEDICAID MC [id number] 2019 00:00:00 [facility] MEDICAID MC [id number] 2019 00:00:00 [facility] MEDICAID MC [id number] 2019 00:00:00 [facility] Problems Condition Name Condition Details Condition Category Status Onset Date Resolution Date Last Treatment Date Treating Clinician Comments Source Other general counseling and advice for contracept roe management Other general counseling and advice for contracept roe management Disease Active 03-17 00:00: 00 [facility] acute hospital Irregular menstrual cycle Irregular menstrual cycle Disease Active 03-17 00:00: 00 [facility] acute hospital Other specified hypothyroi dism Other specified hypothyroi dism Disease Active 3 00:00: 00 [facility] acute hospital History of section History of section Disease Active 2018-09 00:00: 00 Overview: Formattin g of this note might be different from the original. x2 General acute hospital [id number] Iron deficiency anemia, unspecifie d iron deficiency anemia type Problem [facility] [id number] Enlarged thyroid Problem [facility] [id number] Acquired hypothyroi dism Problem [facility] Allergies, Adverse Reactions, Alerts Allergy Name Allergy Type Status Severity Reaction(s) Onset Date Inactive Date Treating Clinician Comments Source NO KNOWN ALLERGIE S Drug Class Active General acute hospital Social History Social Habit Start Date Stop Date Quantity Comments Source ASSERTION 2023-03-28 00:00:00 [facility] Sex Assigned At [facility] Sexual orientation [facility] Alcohol intake 2023-09-16 00:00:00 2023-09-16 00:00:00 Current non-drinker of alcohol (finding) [facility] History of Social function 2023-06-14 00:00:00 2023-06-14 00:00:00 [facility] Tobacco use and exposure 2023-06-14 00:00:00 2023-06-14 00:00:00 Smokeless tobacco non-user [facility] Exposure to SARS-CoV-2 (event) 2021-08-09 00:00:00 2021-09-08 15:16:00 Not sure [facility] History of tobacco use 2020-03-08 00:00:00 Cigarette Smoker [facility] Smoking Status Start Date Stop Date Source Ex-smoker 2023-06-14 00:00:00 2023-06-14 00:00:00 [facility] Current Smoker 2022-03-06 00:00:[address] [facility] Medications Ordered Medication Name Filled Medication Name Start Date Stop Date Current Medication? Ordering Clinician Indication Dosage Frequency Signature (SIG) Comments Components Source Nitrofurant oin&Nit. Macrocryst (MACROBID) 100 mg capsule 2022-09 00:00: 00 Yes [id number] 100mg Take 1 capsule by mouth in the morning. General acute hospital Nitrofurant oin&Nit. Macrocryst (MACROBID) 100 mg capsule 2022-09 00:00: 00 Yes [id number] 100mg Take 1 capsule by mouth in the morning. [facility] acute hospital Nitrofurant oin&Nit. Macrocryst (MACROBID) 100 mg capsule 2022-09 00:00: 00 Yes [id number] 100mg Take 1 capsule by mouth in the morning. [facility] acute hospital Nitrofurant oin&Nit. Macrocryst (MACROBID) 100 mg capsule 2022-09 00:00: 00 Yes [id number] 100mg Take 1 capsule by mouth in the morning. [facility] acute hospital Nitrofurant oin&Nit. Macrocryst (MACROBID) 100 mg capsule 2022-09 00:00: 00 Yes [id number] 100mg Take 1 capsule by mouth in the morning. [facility] acute hospital Nitrofurant oin&Nit. Macrocryst (MACROBID) 100 mg capsule 2022-09 00:00: 00 Yes [id number] 100mg Take 1 capsule by mouth in the morning. [facility] acute hospital Nitrofurant oin&Nit. Macrocryst (MACROBID) 100 mg capsule 2022-09 00:00: 00 Yes [id number] 100mg Take 1 capsule by mouth in the morning. [facility] acute hospital Nitrofurant oin&Nit. Macrocryst (MACROBID) 100 mg capsule 2022-09 00:00: 00 Yes [id number] 100mg Take 1 capsule by mouth in the morning. [facility] acute hospital ampicillin 500 mg capsule 2023-1 2-13 00:00: 00 Yes [id number] 500mg Take 1 capsule by mouth every 6 (six) hours. [facility] acute hospital ampicillin 500 mg capsule 2022-1 2-13 00:00: 00 Yes [id number] 500mg Take 1 capsule by mouth every 6 (six) hours. [facility] acute hospital ampicillin 500 mg capsule 3-1 2-13 00:00: 00 Yes [id number] 500mg Take 1 capsule by mouth every 6 (six) hours. [facility] acute hospital ampicillin 500 mg capsule 2022-1 2-13 00:00: 00 Yes [id number] 500mg Take 1 capsule by mouth every 6 (six) hours. [facility] acute hospital ampicillin 500 mg capsule 3-1 2-13 00:00: 00 Yes [id number] 500mg Take 1 capsule by mouth every 6 (six) hours. [facility] acute hospital ampicillin 500 mg capsule 2022-1 2-13 00:00: 00 Yes [id number] 500mg Take 1 capsule by mouth every 6 (six) hours. [facility] acute hospital ampicillin 500 mg capsule 2022-1 2-13 00:00: 00 Yes [id number] 500mg Take 1 capsule by mouth every 6 (six) hours. [facility] acute hospital ampicillin 500 mg capsule 2022-1 2-13 00:00: 00 Yes [id number] 500mg Take 1 capsule by mouth every 6 (six) hours. [facility] acute hospital ampicillin 500 mg capsule 2022-1 2-13 00:00: 00 Yes [id number] 500mg Take 1 capsule by mouth every 6 (six) hours. [facility] acute hospital ampicillin 500 mg capsule 2022-1 2-13 00:00: 00 Yes [id number] 500mg Take 1 capsule by mouth every 6 (six) hours. [facility] acute hospital ampicillin 500 mg capsule 3-09 13- 00:00: 00 07-25 05:59 :00 Yes [id number] 500mg Take 1 capsule by mouth every 6 (six) hours for 10 days. [facility] acute hospital ampicillin 500 mg capsule 3-1 1- 00:00: 00 07-25 05:59 :00 Yes [id number] 500mg Take 1 capsule by mouth every 6 (six) hours for 10 days. [facility] acute hospital ampicillin 500 mg capsule 2022-09 00:00: 00 07-25 05:59 :00 Yes [id number] 500mg Take 1 capsule by mouth every 6 (six) hours for 10 days. [facility] acute hospital ampicillin 500 mg capsule 2022-09 00:00: 00 07-25 05:59 :00 Yes [id number] 500mg Take 1 capsule by mouth every 6 (six) hours for 10 days. [facility] acute hospital levothyroxi ne 88 mcg tablet 2022-09 11:23: 47 Yes 1 tablet in the morning on an empty stomach Orally Once a day for 90 days [facility] acute hospital levothyroxi ne 88 mcg tablet 2022-09 11:23: 47 Yes 1 tablet in the morning on an empty stomach Orally Once a day for 90 days [facility] acute hospital levothyroxi ne 88 mcg tablet 2022-09 11:23: 47 Yes 1 tablet in the morning on an empty stomach Orally Once a day for 90 days [facility] acute hospital levothyroxi ne 88 mcg tablet 2022-09 11:23: 47 Yes 1 tablet in the morning on an empty stomach Orally Once a day for 90 days [facility] acute hospital levothyroxi ne 88 mcg tablet 2022-09 11:23: 47 Yes 1 tablet in the morning on an empty stomach Orally Once a day for 90 days [facility] acute hospital levothyroxi ne 88 mcg tablet 2022-09 11:23: 47 Yes 1 tablet in the morning on an empty stomach Orally Once a day for 90 days [facility] acute hospital levothyroxi ne 88 mcg tablet 2022-09 11:23: 47 Yes 1 tablet in the morning on an empty stomach Orally Once a day for 90 days [facility] acute hospital levothyroxi ne 88 mcg tablet 2022-09 11:23: 47 Yes 1 tablet in the morning on an empty stomach Orally Once a day for 90 days [facility] acute hospital levothyroxi ne 88 mcg tablet 2022-09 11:23: 47 Yes 1 tablet in the morning on an empty stomach Orally Once a day for 90 days [facility] acute hospital levothyroxi ne 88 mcg tablet 2022-09 11:23: 47 Yes 1 tablet in the morning on an empty stomach Orally [facility] 11:23: 47 Yes 1 tablet in the morning on an empty stomach Orally Once a day for [facility] m[facility] 2022-09 11:23: 47 Yes 1 tablet in the morning on an empty stomach Orally Once a day for [facility] m[facility] 2022-09 11:23: 47 Yes 1 tablet in the morning on an empty stomach Orally Once a day for 90 days [facility] acute hospital levothyroxi ne 88 mcg tablet 2022-09 11:23: 47 Yes 1 tablet in the morning on an empty stomach Orally Once a day for 90 days [facility] acute hospital levothyroxi ne 88 mcg tablet 2022-09 11:23: 47 Yes 1 tablet in the morning on an empty stomach Orally Once a day for 90 days [facility] acute hospital levothyroxi ne 88 mcg tablet 2022-09 11:23: 47 Yes 1 tablet in the morning on an empty stomach Orally Once a day for 90 days [facility] acute hospital levothyroxi ne 88 mcg tablet 2022-09 11:23: 47 Yes 1 tablet in the morning on an empty stomach Orally Once a day for 90 days [facility] acute hospital levothyroxi ne 88 mcg tablet 2022-09 11:23: 47 Yes 1 tablet in the morning on an empty stomach Orally Once a day for 90 days [facility] acute hospital levothyroxi ne 88 mcg tablet 2022-09 11:23: 47 Yes 1 tablet in the morning on an empty stomach Orally Once a day for 90 days [facility] acute hospital levothyroxi ne 88 mcg tablet 2022-09 11:23: 47 Yes 1 tablet in the morning on an empty stomach Orally Once a day for 90 days [facility] acute hospital levothyroxi ne 88 mcg tablet 2022-09 11:23: 47 Yes 1 tablet in the morning on an empty stomach Orally Once a day for 90 days [facility] acute hospital levothyroxi ne 88 mcg tablet 2022-09 11:23: 47 Yes 1 tablet in the morning on an empty stomach Orally Once a day for 90 days [facility] acute hospital levothyroxi ne 88 mcg tablet 2022-09 11:23: 47 Yes 1 tablet in the morning on an empty stomach Orally Once a day for 90 days [facility] acute hospital levothyroxi ne 88 mcg tablet 2022-09 11:23: 47 Yes 1 tablet in the morning on an empty stomach Orally Once a day for 90 days [facility] acute hospital levothyroxi ne 88 mcg tablet 2022-09 11:23: 47 Yes 1 tablet in the morning on an empty stomach Orally Once a day for 90 days [facility] acute hospital levothyroxi ne 88 mcg tablet 2022-09 11:23: 47 Yes 1 tablet in the morning on an empty stomach Orally Once a day for 90 days [facility] acute hospital levothyroxi ne 88 mcg tablet 2022-09 11:23: 47 Yes 1 tablet in the morning on an empty stomach Orally Once a day for 90 days [facility] acute hospital levothyroxi ne 88 mcg tablet 2022-09 11:23: 47 Yes 1 tablet in the morning on an empty stomach Orally Once a day for 90 days [facility] acute hospital levothyroxi ne 88 mcg tablet 2022-09 11:23: 47 Yes 1 tablet in the morning on an empty stomach Orally Once a day for 90 days [facility] acute hospital levothyroxi ne 88 mcg tablet 2022-09 11:23: 47 Yes 1 tablet in the morning on an empty stomach Orally Once a day for 90 days [facility] acute hospital ampicillin 500 mg capsule 2022-09 0 00:00: 00 06-27 04:59 :00 No [id number] 500mg Take 1 capsule by mouth every 6 (six) hours for 10 days. [facility] acute hospital buprenorphi ne HCL 2 mg sublingual tablet 2022-09 0 13:26: [address] 1 tablet under the tongue in the morning and 1 tablet in the evening. [facility] acute hospital buprenorphi ne HCL 2 mg sublingual tablet 2022-09 0 13:26: [address] 1 tablet under the tongue in the morning and 1 tablet in the evening. [facility] acute [facility] buprenorphi ne HCL 2 mg sublingual tablet 2022-09 0 13:26: [address] 1 tablet under the tongue in the morning and 1 tablet in the evening. [facility] buprenorphi ne HCL 2 mg sublingual tablet 2022-09 0 13:26: [address] 1 tablet under the tongue in the morning and 1 tablet in the evening. [facility] buprenorphi ne HCL 2 mg sublingual tablet 2022-09 13:26: [address] 1 tablet under the tongue in the morning and 1 tablet in the evening. [facility] buprenorphi ne HCL 2 mg sublingual tablet 2022-09 13:26: [address] 1 tablet under the tongue in the morning and 1 tablet in the evening. [facility] buprenorphi ne HCL 2 mg sublingual tablet 2022-09 13:26: [address] 1 tablet under the tongue in the morning and 1 tablet in the evening. [facility] buprenorphi ne HCL 2 mg sublingual tablet 2022-09 13:26: [address] 1 tablet under the tongue in the morning and 1 tablet in the evening. [facility] buprenorphi ne HCL 2 mg sublingual tablet 2022-09 0 13:26: [address] 1 tablet under the tongue in the morning and 1 tablet in the evening. [facility] buprenorphi ne HCL 2 mg sublingual tablet 2022-09 0 13:26: [address] 1 tablet under the tongue in the morning and 1 tablet in the evening. [facility] buprenorphi ne HCL 2 mg sublingual tablet 2022-09 0 13:26: [address] 1 tablet under the tongue in the morning and 1 tablet in the evening. [facility] acute [facility] buprenorphi ne HCL 2 mg sublingual tablet 2022-09 0 13:26: [address] 1 tablet under the tongue in the morning and 1 tablet in the evening. [facility] acute hospital buprenorphi ne HCL 2 mg sublingual tablet 2022- 0 13:26: [address] 1 tablet under the tongue in the morning and 1 tablet in the evening. [facility] buprenorphi ne HCL 2 mg sublingual tablet 2022-09 0 13:26: [address] 1 tablet under the tongue in the morning and 1 tablet in the evening. [facility] acute [facility] buprenorphi ne HCL 2 mg sublingual tablet 2022- 0 13:26: [address] 1 tablet under the tongue in the morning and 1 tablet in the evening. [facility] acute [facility] buprenorphi ne HCL 2 mg sublingual tablet 2022-09 0 13:26: [address] 1 tablet under the tongue in the morning and 1 tablet in the evening. [facility] acute [facility] buprenorphi ne HCL 2 mg sublingual tablet 2022-09 0 13:26: [address] 1 tablet under the tongue in the morning and 1 tablet in the evening. [facility] acute [facility] buprenorphi ne HCL 2 mg sublingual tablet 2022- 0 13:26: [address] 1 tablet under the tongue in the morning and 1 tablet in the evening. [facility] buprenorphi ne HCL 2 mg sublingual tablet 2022-09 0 13:26: [address] 1 tablet under the tongue in the morning and 1 tablet in the evening. [facility] acute [facility] buprenorphi ne HCL 2 mg sublingual tablet 2022-09 0 13:26: [address] 1 tablet under the tongue in the morning and 1 tablet in the evening. [facility] buprenorphi ne HCL 2 mg sublingual tablet 2022- 0 13:26: [address] 1 tablet under the tongue in the morning and 1 tablet in the evening. [facility] buprenorphi ne HCL 2 mg sublingual tablet 2022-09 0 13:26: [address] 1 tablet under the tongue in the morning and 1 tablet in the evening. [facility] buprenorphi ne HCL 2 mg sublingual tablet 2022-09 0 13:26: [address] 1 tablet under the tongue in the morning and 1 tablet in the evening. [facility] buprenorphi ne HCL 2 mg sublingual tablet 2022-09 0 13:26: [address] 1 tablet under the tongue in the morning and 1 tablet in the evening. [facility] acute [facility] buprenorphi ne HCL 2 mg sublingual tablet 2022-09 13:26: [address] 1 tablet under the tongue in the morning and 1 tablet in the evening. [facility] buprenorphi ne HCL 2 mg sublingual tablet 2022-09 13:26: [address] 1 tablet under the tongue in the morning and 1 tablet in the evening. [facility] acute hospital buprenorphi ne HCL 2 mg sublingual tablet 2022-09 13:26: [address] 1 tablet under the tongue in the morning and 1 tablet in the evening. [facility] buprenorphi ne HCL 2 mg sublingual tablet 2022-09 0 13:26: [address] 1 tablet under the tongue in the morning and 1 tablet in the evening. [facility] buprenorphi ne HCL 2 mg sublingual tablet 2022-09 0 13:26: [address] 1 tablet under the tongue in the morning and 1 tablet in the evening. [facility] buprenorphi ne HCL 2 mg sublingual tablet 2022-09 0 13:26: [address] 1 tablet under the tongue in the morning and 1 tablet in the evening. [facility] buprenorphi ne HCL 2 mg sublingual tablet 2022-09 0 13:26: [address] 1 tablet under the tongue in the morning and 1 tablet in the evening. [facility] buprenorphi ne HCL 2 mg sublingual tablet 2022-09 0 13:26: [address] 1 tablet under the tongue in the morning and 1 tablet in the evening. [facility] buprenorphi ne HCL 2 mg sublingual tablet 2022-09 0 13:26: [address] 1 tablet under the tongue in the morning and 1 tablet in the evening. [facility] buprenorphi ne HCL 2 mg sublingual tablet 2022-09 0 13:26: [address] 1 tablet under the tongue in the morning and 1 tablet in the evening. [facility] acute hospital vit 33-iron-fol ic-dha (SELECT-OB + DHA) 29 mg iron-1 mg -250 mg combo pack 2022-09 0- 00:00: 00 Yes [id number] 1{packe t} Take 1 Packet by mouth in the morning. [facility] acute hospital vit 33-iron-fol ic-dha (SELECT-OB + DHA) 29 mg iron-1 mg -250 mg combo pack 2022-09 0 00:00: 00 Yes [id number] 1{packe t} Take 1 Packet by mouth in the morning. [facility] acute hospital vit 33-iron-fol ic-dha (SELECT-OB + DHA) 29 mg iron-1 mg -250 mg combo pack 2022-09 0 00:00: 00 Yes [id number] 1{packe t} Take 1 Packet by mouth in the morning. [facility] acute [facility] vit 33-iron-fol ic-dha (SELECT-OB + DHA) 29 mg iron-1 mg -250 mg combo pack 2022-09 0- 00:00: 00 Yes [id number] 1{packe t} Take 1 Packet by mouth in the morning. [facility] acute hospital vit 33-iron-fol ic-dha (SELECT-OB + DHA) 29 mg iron-1 mg -250 mg combo pack 2022-09 0- 00:00: 00 Yes [id number] 1{packe t} Take 1 Packet by mouth in the morning. [facility] acute hospital vit 33-iron-fol ic-dha (SELECT-OB + DHA) 29 mg iron-1 mg -250 mg combo pack 2022-09 0-02 00:00: 00 Yes [id number] 1{packe t} Take 1 Packet by mouth in the morning. [facility] acute hospital vit 33-iron-fol ic-dha (SELECT-OB + DHA) 29 mg iron-1 mg -250 mg combo pack 2022-09 0-02 00:00: 00 Yes [id number] 1{packe t} Take 1 Packet by mouth in the morning. [facility] acute [facility] vit 33-iron-fol ic-dha (SELECT-OB + DHA) 29 mg iron-1 mg -250 mg combo pack 2022-09 0-02 00:00: 00 Yes [id number] 1{packe t} Take 1 Packet by mouth in the morning. [facility] acute hospital vit 33-iron-fol ic-dha (SELECT-OB + DHA) 29 mg iron-1 mg -250 mg combo pack 2022-09 0-02 00:00: 00 Yes [id number] 1{packe t} Take 1 Packet by mouth in the morning. [facility] acute hospital vit 33-iron-fol ic-dha (SELECT-OB + DHA) 29 mg iron-1 mg -250 mg combo pack 2022-09 0-02 00:00: 00 Yes [id number] 1{packe t} Take 1 Packet by mouth in the morning. [facility] acute hospital vit 33-iron-fol ic-dha (SELECT-OB + DHA) 29 mg iron-1 mg -250 mg combo pack 2022-09 0-02 00:00: 00 Yes [id number] 1{packe t} Take 1 Packet by mouth in the morning. [facility] acute hospital vit 33-iron-fol ic-dha (SELECT-OB + DHA) 29 mg iron-1 mg -250 mg combo pack 2022-09 0-02 00:00: 00 Yes [id number] 1{packe t} Take 1 Packet by mouth in the morning. [facility] acute hospital vit 33-iron-fol ic-dha (SELECT-OB + DHA) 29 mg iron-1 mg -250 mg combo pack 2022-09 0-02 00:00: 00 Yes [id number] 1{packe t} Take 1 Packet by mouth in the morning. [facility] acute hospital vit 33-iron-fol ic-dha (SELECT-OB + DHA) 29 mg iron-1 mg -250 mg combo pack 2022-09 0-02 00:00: 00 Yes [id number] 1{packe t} Take 1 Packet by mouth in the morning. [facility] acute hospital vit 33-iron-fol ic-dha (SELECT-OB + DHA) 29 mg iron-1 mg -250 mg combo pack 2022-09 0-02 00:00: 00 Yes [id number] 1{packe t} Take 1 Packet by mouth in the morning. [facility] acute hospital vit 33-iron-fol ic-dha (SELECT-OB + DHA) 29 mg iron-1 mg -250 mg combo pack 2022-09 0-02 00:00: 00 Yes [id number] 1{packe t} Take 1 Packet by mouth in the morning. [facility] acute hospital vit 33-iron-fol ic-dha (SELECT-OB + DHA) 29 mg iron-1 mg -250 mg combo pack 2022-09 0-02 00:00: 00 Yes [id number] 1{packe t} Take 1 Packet by mouth in the morning. [facility] acute hospital vit 33-iron-fol ic-dha (SELECT-OB + DHA) 29 mg iron-1 mg -250 mg combo pack 2022-09 0-02 00:00: 00 Yes [id number] 1{packe t} Take 1 Packet by mouth in the morning. [facility] acute hospital vit 33-iron-fol ic-dha (SELECT-OB + DHA) 29 mg iron-1 mg -250 mg combo pack 2022-09 0-02 00:00: 00 Yes [id number] 1{packe t} Take 1 Packet by mouth in the morning. [facility] acute hospital vit 33-iron-fol ic-dha (SELECT-OB + DHA) 29 mg iron-1 mg -250 mg combo pack 2022- 0-02 00:00: 00 Yes [id number] 1{packe t} Take 1 Packet by mouth in the morning. [facility] acute hospital vit 33-iron-fol ic-dha (SELECT-OB + DHA) 29 mg iron-1 mg -250 mg combo pack 2022- 0-02 00:00: 00 Yes [id number] 1{packe t} Take 1 Packet by mouth in the morning. [facility] acute hospital vit 33-iron-fol ic-dha (SELECT-OB + DHA) 29 mg iron-1 mg -250 mg combo pack 2022- 0-02 00:00: 00 Yes [id number] 1{packe t} Take 1 Packet by mouth in the morning. [facility] acute hospital vit 33-iron-fol ic-dha (SELECT-OB + DHA) 29 mg iron-1 mg -250 mg combo pack 2022-09 0-02 00:00: 00 Yes [id number] 1{packe t} Take 1 Packet by mouth in the morning. [facility] acute hospital vit 33-iron-fol ic-dha (SELECT-OB + DHA) 29 mg iron-1 mg -250 mg combo pack 2022-09 0- 00:00: 00 Yes [id number] 1{packe t} Take 1 Packet by mouth in the morning. [facility] acute hospital vit 33-iron-fol ic-dha (SELECT-OB + DHA) 29 mg iron-1 mg -250 mg combo pack 2022-09 0- 00:00: 00 Yes [id number] 1{packe t} Take 1 Packet by mouth in the morning. [facility] acute hospital vit 33-iron-fol ic-dha (SELECT-OB + DHA) 29 mg iron-1 mg -250 mg combo pack 2022-09 0-02 00:00: 00 Yes [id number] 1{packe t} Take 1 Packet by mouth in the morning. [facility] acute hospital vit 33-iron-fol ic-dha (SELECT-OB + DHA) 29 mg iron-1 mg -250 mg combo pack 2022- 0-02 00:00: 00 Yes [id number] 1{packe t} Take 1 Packet by mouth in the morning. [facility] acute hospital vit 33-iron-fol ic-dha (SELECT-OB + DHA) 29 mg iron-1 mg -250 mg combo pack 2022-09 0-02 00:00: 00 Yes [id number] 1{packe t} Take 1 Packet by mouth in the morning. [facility] acute hospital vit 33-iron-fol ic-dha (SELECT-OB + DHA) 29 mg iron-1 mg -250 mg combo pack 2022-09 0- 00:00: 00 Yes [id number] 1{packe t} Take 1 Packet by mouth in the morning. [facility] acute hospital vit 33-iron-fol ic-dha (SELECT-OB + DHA) 29 mg iron-1 mg -250 mg combo pack 2022-09 0- 00:00: 00 Yes [id number] 1{packe t} Take 1 Packet by mouth in the morning. General acute [facility] vit 33-iron-fol ic-dha (SELECT-OB + DHA) 29 mg iron-1 mg -250 mg combo pack 2022-09 0- 00:00: 00 Yes [id number] 1{packe t} Take 1 Packet by mouth in the morning. [facility] acute hospital vit 33-iron-fol ic-dha (SELECT-OB + DHA) 29 mg iron-1 mg -250 mg combo pack 2022-09 0- 00:00: 00 Yes [id number] 1{packe t} Take 1 Packet by mouth in the morning. [facility] acute hospital vit 33-iron-fol ic-dha (SELECT-OB + DHA) 29 mg iron-1 mg -250 mg combo pack 2022-09 0- 00:00: 00 Yes [id number] 1{packe t} Take 1 Packet by mouth in the morning. [facility] acute hospital vit 33-iron-fol ic-dha (SELECT-OB + DHA) 29 mg iron-1 mg -250 mg combo pack 2022-09 0- 00:00: 00 Yes [id number] 1{packe t} Take 1 Packet by mouth in the morning. [facility] acute hospital levothyroxi ne 88 mcg tablet 2022-05-27 00:00: 00 Yes TAKE 1 TABLET BY MOUTH ONCE DAILY IN THE MORNING ON AN EMPTY STOMACH [facility] acute hospital levothyroxi ne 88 mcg tablet 2022-0 05-27 00:00: 00 Yes TAKE 1 TABLET BY MOUTH ONCE DAILY IN THE MORNING ON AN EMPTY STOMACH [facility] levothyroxi ne 88 mcg tablet 2022-0 05-27 00:00: 00 Yes TAKE 1 TABLET BY MOUTH ONCE DAILY IN THE MORNING ON AN EMPTY STOMACH [facility] levothyroxi ne 88 mcg tablet 2022-0 05-27 00:00: 00 Yes TAKE 1 TABLET BY MOUTH ONCE DAILY IN THE MORNING ON AN EMPTY STOMACH [facility] levothyroxi ne 88 mcg tablet 2022-0 05-27 00:00: 00 Yes TAKE 1 TABLET BY MOUTH ONCE DAILY IN THE MORNING ON AN EMPTY STOMACH [facility] acute hospital levothyroxi ne 88 mcg tablet 2022-0 05-27 00:00: 00 Yes TAKE 1 TABLET BY MOUTH ONCE DAILY IN THE MORNING ON AN EMPTY STOMACH [facility] acute hospital levothyroxi ne 88 mcg tablet 2022-0 05-27 00:00: 00 Yes TAKE 1 TABLET BY MOUTH ONCE DAILY IN THE MORNING ON AN EMPTY STOMACH [facility] acute hospital levothyroxi ne 88 mcg tablet 2022-0 05-27 00:00: 00 Yes TAKE 1 TABLET BY MOUTH ONCE DAILY IN THE MORNING ON AN EMPTY STOMACH [facility] acute hospital levothyroxi ne 88 mcg tablet 2022-0 05-27 00:00: 00 Yes TAKE 1 TABLET BY MOUTH ONCE DAILY IN THE MORNING ON AN EMPTY STOMACH [facility] acute hospital levothyroxi ne 88 mcg tablet 2022-0 05-27 00:00: 00 Yes TAKE 1 TABLET BY MOUTH ONCE DAILY IN THE MORNING ON AN EMPTY STOMACH [facility] acute hospital levothyroxi ne 88 mcg tablet 2022-0 05-27 00:00: 00 Yes TAKE 1 TABLET BY MOUTH ONCE DAILY IN THE MORNING ON AN EMPTY STOMACH [facility] hospital levothyroxi ne 88 mcg tablet 2022-0 05-27 00:00: 00 Yes TAKE 1 TABLET BY MOUTH ONCE DAILY IN THE MORNING ON AN EMPTY STOMACH [facility] hospital levothyroxi ne 88 mcg tablet 2022-0 05-27 00:00: 00 Yes TAKE 1 TABLET BY MOUTH ONCE DAILY IN THE MORNING ON AN EMPTY STOMACH [facility] acute hospital levothyroxi ne 88 mcg tablet 2022-0 9-14 00:00: 00 Yes TAKE 1 TABLET BY MOUTH ONCE DAILY IN THE MORNING ON AN EMPTY STOMACH [facility] acute hospital levothyroxi ne 88 mcg tablet 2022-0 14 00:00: 00 Yes TAKE 1 TABLET BY MOUTH ONCE DAILY IN THE MORNING ON AN EMPTY STOMACH [facility] levothyroxi ne 88 mcg tablet 2022-0 05-27 00:00: 00 Yes TAKE 1 TABLET BY MOUTH ONCE DAILY IN THE MORNING ON AN EMPTY STOMACH [facility] acute hospital levothyroxi ne 88 mcg tablet 2022-0 14 00:00: 00 Yes TAKE 1 TABLET BY MOUTH ONCE DAILY IN THE MORNING ON AN EMPTY STOMACH [facility] acute hospital levothyroxi ne 88 mcg tablet 2022-0 05-27 00:00: 00 Yes TAKE 1 TABLET BY MOUTH ONCE DAILY IN THE MORNING ON AN EMPTY STOMACH [facility] acute hospital levothyroxi ne 88 mcg tablet 2022-0 05-27 00:00: 00 Yes TAKE 1 TABLET BY MOUTH ONCE DAILY IN THE MORNING ON AN EMPTY STOMACH [facility] acute hospital levothyroxi ne 88 mcg tablet 2022-0 05-27 00:00: 00 Yes TAKE 1 TABLET BY MOUTH ONCE DAILY IN THE MORNING ON AN EMPTY STOMACH [facility] acute hospital levothyroxi ne 88 mcg tablet 2022-0 05-27 00:00: 00 Yes TAKE 1 TABLET BY MOUTH ONCE DAILY IN THE MORNING ON AN EMPTY STOMACH [facility] hospital levothyroxi ne 88 mcg tablet 2022-0 05-27 00:00: 00 Yes TAKE 1 TABLET BY MOUTH ONCE DAILY IN THE MORNING ON AN EMPTY STOMACH [facility] acute hospital levothyroxi ne 88 mcg tablet 2022-0 14 00:00: 00 Yes TAKE 1 TABLET BY MOUTH ONCE DAILY IN THE MORNING ON AN EMPTY STOMACH [facility] hospital levothyroxi ne 88 mcg tablet 2022-0 14 00:00: 00 Yes TAKE 1 TABLET BY MOUTH ONCE DAILY IN THE MORNING ON AN EMPTY STOMACH [facility] hospital levothyroxi ne 88 mcg tablet 2022-0 14 00:00: 00 Yes TAKE 1 TABLET BY MOUTH ONCE DAILY IN THE MORNING ON AN EMPTY STOMACH [facility] hospital levothyroxi ne 88 mcg tablet 2022-0 9-14 00:00: 00 Yes TAKE 1 TABLET BY MOUTH ONCE DAILY IN THE MORNING ON AN EMPTY STOMACH [facility] hospital levothyroxi ne 88 mcg tablet 0 05-27 00:00: 00 Yes TAKE 1 TABLET BY MOUTH ONCE DAILY IN THE MORNING ON AN EMPTY STOMACH [facility] acute hospital levothyroxi ne 88 mcg tablet 0 05-27 00:00: 00 Yes TAKE 1 TABLET BY MOUTH ONCE DAILY IN THE MORNING ON AN EMPTY STOMACH [facility] hospital levothyroxi ne 88 mcg tablet 0 05-27 00:00: 00 Yes TAKE 1 TABLET BY MOUTH ONCE DAILY IN THE MORNING ON AN EMPTY STOMACH [facility] hospital levothyroxi ne 88 mcg tablet 0 05-27 00:00: 00 Yes TAKE 1 TABLET BY MOUTH ONCE DAILY IN THE MORNING ON AN EMPTY STOMACH [facility] acute hospital levonorgest rel-ethinyl estradiol (SRONYX) 0.1-20 mg-mcg per tablet 2020-09 00:00: 00 Yes [id number] 1{tbl} Take 1 tablet by mouth daily. [facility] acute hospital levonorgest rel-ethinyl estradiol (SRONYX) 0.1-20 mg-mcg per tablet 2020-09 00:00: 00 Yes [id number] 1{tbl} Take 1 tablet by mouth daily. [facility] acute hospital levonorgest rel-ethinyl estradiol (SRONYX) 0.1-20 mg-mcg per tablet 2020-09 00:00: 00 Yes [id number] 1{tbl} Take 1 tablet by mouth daily. [facility] acute hospital levonorgest rel-ethinyl estradiol (SRONYX) 0.1-20 mg-mcg per tablet 2020-09 00:00: 00 Yes [id number] 1{tbl} Take 1 tablet by mouth daily. [facility] acute hospital levonorgest rel-ethinyl estradiol (SRONYX) 0.1-20 mg-mcg per tablet 2020-09 00:00: 00 Yes [id number] 1{tbl} Take 1 tablet by mouth daily. [facility] acute hospital levonorgest rel-ethinyl estradiol (SRONYX) 0.1-20 mg-mcg per tablet 2020-09 00:00: 00 Yes [id number] 1{tbl} Take 1 tablet by mouth daily. [facility] acute hospital levonorgest rel-ethinyl estradiol (SRONYX) 0.1-20 mg-mcg per tablet 2020-09 00:00: 00 Yes [id number] 1{tbl} Take 1 tablet by mouth daily. [facility] acute hospital levonorgest rel-ethinyl estradiol (SRONYX) 0.1-20 mg-mcg per tablet 2020-09 00:00: 00 Yes [id number] 1{tbl} Take 1 tablet by mouth daily. [facility] acute hospital levonorgest rel-ethinyl estradiol (SRONYX) 0.1-20 mg-mcg per tablet 2020-09 00:00: 00 Yes [id number] 1{tbl} Take 1 tablet by mouth daily. [facility] acute hospital levonorgest rel-ethinyl estradiol (SRONYX) 0.1-20 mg-mcg per tablet 2020-09 00:00: 00 Yes [id number] 1{tbl} Take 1 tablet by mouth daily. [facility] hospital levonorgest rel-ethinyl estradiol (SRONYX) 0.1-20 mg-mcg per tablet 2020-09 00:00: 00 Yes [id number] 1{tbl} Take 1 tablet by mouth daily. [facility] acute hospital levonorgest rel-ethinyl estradiol (SRONYX) 0.1-20 mg-mcg per tablet 2020-09 00:00: 00 Yes [id number] 1{tbl} Take 1 tablet by mouth daily. [facility] acute hospital levonorgest rel-ethinyl estradiol (SRONYX) 0.1-20 mg-mcg per tablet 2020-09 00:00: 00 Yes [id number] 1{tbl} Take 1 tablet by mouth daily. [facility] acute hospital levonorgest rel-ethinyl estradiol (SRONYX) 0.1-20 mg-mcg per tablet 2020-09 00:00: 00 Yes [id number] 1{tbl} Take 1 tablet by mouth daily. [facility] acute hospital levonorgest rel-ethinyl estradiol (SRONYX) 0.1-20 mg-mcg per tablet 2020-09 00:00: 00 Yes [id number] 1{tbl} Take 1 tablet by mouth daily. [facility] acute hospital levonorgest rel-ethinyl estradiol (SRONYX) 0.1-20 mg-mcg per tablet 2020-09 00:00: 00 Yes [id number] 1{tbl} Take 1 tablet by mouth daily. [facility] acute hospital levonorgest rel-ethinyl estradiol (SRONYX) 0.1-20 mg-mcg per tablet 2020-09 00:00: 00 Yes [id number] 1{tbl} Take 1 tablet by mouth daily. [facility] acute hospital levonorgest rel-ethinyl estradiol (SRONYX) 0.1-20 mg-mcg per tablet 2020-09 00:00: 00 Yes [id number] 1{tbl} Take 1 tablet by mouth daily. [facility] acute hospital levonorgest rel-ethinyl estradiol (SRONYX) 0.1-20 mg-mcg per tablet 2020-09 00:00: 00 Yes [id number] 1{tbl} Take 1 tablet by mouth daily. [facility] acute hospital levonorgest rel-ethinyl estradiol (SRONYX) 0.1-20 mg-mcg per tablet 2020-09 00:00: 00 Yes [id number] 1{tbl} Take 1 tablet by mouth daily. [facility] acute hospital levonorgest rel-ethinyl estradiol (SRONYX) 0.1-20 mg-mcg per tablet 2020-09 00:00: 00 Yes [id number] 1{tbl} Take 1 tablet by mouth daily. [facility] acute hospital levonorgest rel-ethinyl estradiol (SRONYX) 0.1-20 mg-mcg per tablet 2020-09 00:00: 00 Yes [id number] 1{tbl} Take 1 tablet by mouth daily. [facility] acute hospital levonorgest rel-ethinyl estradiol (SRONYX) 0.1-20 mg-mcg per tablet 2020-09 00:00: 00 Yes [id number] 1{tbl} Take 1 tablet by mouth daily. [facility] acute hospital levonorgest rel-ethinyl estradiol (SRONYX) 0.1-20 mg-mcg per tablet 2020-09 00:00: 00 Yes [id number] 1{tbl} Take 1 tablet by mouth daily. [facility] acute hospital levonorgest rel-ethinyl estradiol (SRONYX) 0.1-20 mg-mcg per tablet 2020-09 00:00: 00 Yes [id number] 1{tbl} Take 1 tablet by mouth daily. [facility] acute hospital levonorgest rel-ethinyl estradiol (SRONYX) 0.1-20 mg-mcg per tablet 2020-09 00:00: 00 Yes [id number] 1{tbl} Take 1 tablet by mouth daily. [facility] acute hospital levonorgest rel-ethinyl estradiol (SRONYX) 0.1-20 mg-mcg per tablet 2020-09 00:00: 00 Yes [id number] 1{tbl} Take 1 tablet by mouth daily. [facility] acute hospital levonorgest rel-ethinyl estradiol (SRONYX) 0.1-20 mg-mcg per tablet 2020-09 00:00: 00 Yes [id number] 1{tbl} Take 1 tablet by mouth daily. [facility] acute hospital levonorgest rel-ethinyl estradiol (SRONYX) 0.1-20 mg-mcg per tablet 2020-09 00:00: 00 Yes [id number] 1{tbl} Take 1 tablet by mouth daily. [facility] acute hospital levonorgest rel-ethinyl estradiol (SRONYX) 0.1-20 mg-mcg per tablet 2020-09 00:00: 00 Yes [id number] 1{tbl} Take 1 tablet by mouth daily. [facility] acute [facility] levonorgest rel-ethinyl estradiol (SRONYX) 0.1-20 mg-mcg per tablet 2020-09 00:00: 00 Yes [id number] 1{tbl} Take 1 tablet by mouth daily. [facility] acute hospital levonorgest rel-ethinyl estradiol (SRONYX) 0.1-20 mg-mcg per tablet 2020-09 00:00: 00 Yes [id number] 1{tbl} Take 1 tablet by mouth daily. [facility] acute hospital levonorgest rel-ethinyl estradiol (SRONYX) 0.1-20 mg-mcg per tablet 2020-09 00:00: 00 Yes [id number] 1{tbl} Take 1 tablet by mouth daily. [facility] acute hospital levonorgest rel-ethinyl estradiol (SRONYX) 0.1-20 mg-mcg per tablet 2020-09 00:00: 00 Yes [id number] 1{tbl} Take 1 tablet by mouth daily. [facility] acute hospital levonorgest rel-ethinyl estradiol (SRONYX) 0.1-20 mg-mcg per tablet 2020-09 00:00: 00 Yes [id number] 1{tbl} Take 1 tablet by mouth daily. [facility] acute hospital levonorgest rel-ethinyl estradiol (SRONYX) 0.1-20 mg-mcg per tablet 2020-09 00:00: 00 Yes [id number] 1{tbl} Take 1 tablet by mouth daily. [facility] acute hospital Triamcinolo ne Acetonide 0.1 % Triamcinolo ne Acetonide 0.1 % 05-07 00:00: 00 No 1{appli cation} BID Triamcinol one Acetonide 0.1 % Cetirizine HCl 10 MG Cetirizine HCl 10 MG 05-07 00:00: 00 No 1{table t} QD Cetirizine HCl 10 MG Triamcinolo ne Acetonide 0.1 % Triamcinolo ne Acetonide 0.1 % 05-07 00:00: 00 No 1{appli cation} BID Triamcinol one Acetonide 0.1 % Cetirizine HCl 10 MG Cetirizine HCl 10 MG 2020-0 05-07 00:00: 00 No 1{table t} QD Cetirizine HCl 10 MG Cetirizine HCl 10 MG Cetirizine HCl 10 MG 0 05-07 00:00: 00 No 1{table t} QD Cetirizine HCl 10 MG Triamcinolo ne Acetonide 0.1 % Triamcinolo ne Acetonide 0.1 % 05-07 00:00: 00 No 1{appli cation} BID Triamcinol one Acetonide 0.1 % Triamcinolo ne Acetonide 0.1 % Triamcinolo ne Acetonide 0.1 % 05-07 00:00: 00 No 1{appli cation} BID Triamcinol one Acetonide 0.1 % Cetirizine HCl 10 MG Cetirizine HCl 10 MG 05-07 00:00: 00 No 1{table t} QD Cetirizine HCl 10 MG Kenalog (Triamcinol one) Kenalog (Triamcinol one) 05-07 00:00: 00 No 40mg [facility] Cetirizine HCl 10 MG Cetirizine HCl 10 MG 05-07 00:00: 00 No 1{table t} QD Cetirizine HCl 10 MG Triamcinolo ne Acetonide 0.1 % Triamcinolo ne Acetonide 0.1 % 05-07 00:00: 00 No 1{appli cation} BID Triamcinol one Acetonide 0.1 % Kenalog (Triamcinol one) Kenalog (Triamcinol one) 05-07 00:00: 00 No 40mg [facility] Kenalog (Triamcinol one) Kenalog (Triamcinol one) 05-07 00:00: 00 No 40mg [facility] Kenalog (Triamcinol one) Kenalog (Triamcinol one) 0 05-07 00:00: 00 No 40mg [facility] Kenalog (Triamcinol one) Kenalog (Triamcinol one) 05-07 00:00: [address] [facility] Triamcinolo ne Acetonide 0.1 % Triamcinolo ne Acetonide 0.1 % 05-07 00:00: 00 No 1{appli cation} BID Triamcinol one Acetonide 0.1 % Cetirizine HCl 10 MG Cetirizine HCl 10 MG 05-07 00:00: 00 No 1{table t} QD Cetirizine HCl 10 MG levothyroxi ne (SYNTHROID) 50 mcg tablet 2018-09 00:00: 00 Yes [id number] 50ug Take 1 tablet by mouth every morning. [facility] acute hospital levothyroxi ne (SYNTHROID) 50 mcg tablet 2018-09 00:00: 00 Yes [id number] 50ug Take 1 tablet by mouth every morning. [facility] acute hospital levothyroxi ne (SYNTHROID) 50 mcg tablet 2018-09 00:00: 00 Yes [id number] 50ug Take 1 tablet by mouth every morning. [facility] acute hospital levothyroxi ne (SYNTHROID) 50 mcg tablet 2018-09 00:00: 00 Yes [id number] 50ug Take 1 tablet by mouth every morning. [facility] acute hospital levothyroxi ne (SYNTHROID) 50 mcg tablet 2018-09 00:00: 00 Yes [id number] 50ug Take 1 tablet by mouth every morning. [facility] acute hospital levothyroxi ne (SYNTHROID) 50 mcg tablet 2018-09 00:00: 00 Yes [id number] 50ug Take 1 tablet by mouth every morning. [facility] acute hospital levothyroxi ne (SYNTHROID) 50 mcg tablet 2018-09 00:00: 00 Yes [id number] 50ug Take 1 tablet by mouth every morning. [facility] acute hospital levothyroxi ne (SYNTHROID) 50 mcg tablet 2018-09 00:00: 00 Yes [id number] 50ug Take 1 tablet by mouth every morning. [facility] acute hospital levothyroxi ne (SYNTHROID) 50 mcg tablet 2018-09 00:00: 00 Yes [id number] 50ug Take 1 tablet by mouth every morning. [facility] levothyroxi ne (SYNTHROID) 50 mcg tablet 2018-09 00:00: 00 Yes [id number] 50ug Take 1 tablet by mouth every morning. [facility] acute [facility] levothyroxi ne (SYNTHROID) 50 mcg tablet 2018-09 00:00: 00 Yes [id number] 50ug Take 1 tablet by mouth every morning. [facility] acute hospital levothyroxi ne (SYNTHROID) 50 mcg tablet 2018-09 00:00: 00 Yes [id number] 50ug Take 1 tablet by mouth every morning. [facility] acute hospital levothyroxi ne (SYNTHROID) 50 mcg tablet 2018-09 00:00: 00 Yes [id number] 50ug Take 1 tablet by mouth every morning. [facility] acute hospital levothyroxi ne (SYNTHROID) 50 mcg tablet 2018-09 00:00: 00 Yes [id number] 50ug Take 1 tablet by mouth every morning. [facility] acute hospital levothyroxi ne (SYNTHROID) 50 mcg tablet 2018-09 00:00: 00 Yes [id number] 50ug Take 1 tablet by mouth every morning. [facility] acute hospital levothyroxi ne (SYNTHROID) 50 mcg tablet 2018-09 00:00: 00 Yes [id number] 50ug Take 1 tablet by mouth every morning. [facility] acute hospital levothyroxi ne (SYNTHROID) 50 mcg tablet 2018-09 00:00: 00 Yes [id number] 50ug Take 1 tablet by mouth every morning. [facility] acute hospital levothyroxi ne (SYNTHROID) 50 mcg tablet 2018-09 00:00: 00 Yes [id number] 50ug Take 1 tablet by mouth every morning. [facility] acute hospital levothyroxi ne (SYNTHROID) 50 mcg tablet 2018-09 00:00: 00 Yes [id number] 50ug Take 1 tablet by mouth every morning. [facility] acute hospital levothyroxi ne (SYNTHROID) 50 mcg tablet 2018-09 00:00: 00 Yes [id number] 50ug Take 1 tablet by mouth every morning. [facility] acute hospital levothyroxi ne (SYNTHROID) 50 mcg tablet 2018-09 00:00: 00 Yes [id number] 50ug Take 1 tablet by mouth every morning. [facility] acute hospital levothyroxi ne (SYNTHROID) 50 mcg tablet 2018-09 00:00: 00 Yes [id number] 50ug Take 1 tablet by mouth every morning. [facility] acute hospital levothyroxi ne (SYNTHROID) 50 mcg tablet 2018-09 00:00: 00 Yes [id number] 50ug Take 1 tablet by mouth every morning. [facility] acute hospital levothyroxi ne (SYNTHROID) 50 mcg tablet 2018-09 00:00: 00 Yes [id number] 50ug Take 1 tablet by mouth every morning. [facility] acute hospital levothyroxi ne (SYNTHROID) 50 mcg tablet 2018-09 00:00: 00 Yes [id number] 50ug Take 1 tablet by mouth every morning. [facility] acute hospital levothyroxi ne (SYNTHROID) 50 mcg tablet 2018-09 00:00: 00 Yes [id number] 50ug Take 1 tablet by mouth every morning. [facility] acute hospital levothyroxi ne (SYNTHROID) 50 mcg tablet 2018-09 00:00: 00 Yes [id number] 50ug Take 1 tablet by mouth every morning. [facility] acute hospital levothyroxi ne (SYNTHROID) 50 mcg tablet 2018-09 00:00: 00 Yes [id number] 50ug Take 1 tablet by mouth every morning. [facility] acute hospital levothyroxi ne (SYNTHROID) 50 mcg tablet 2018-09 00:00: 00 Yes [id number] 50ug Take 1 tablet by mouth every morning. [facility] acute hospital levothyroxi ne (SYNTHROID) 50 mcg tablet 2018-09 00:00: 00 Yes [id number] 50ug Take 1 tablet by mouth every morning. [facility] acute hospital levothyroxi ne (SYNTHROID) 50 mcg tablet 2018-09 00:00: 00 Yes [id number] 50ug Take 1 tablet by mouth every morning. [facility] acute hospital levothyroxi ne (SYNTHROID) 50 mcg tablet 2018-09 00:00: 00 Yes [id number] 50ug Take 1 tablet by mouth every morning. [facility] acute hospital levothyroxi ne (SYNTHROID) 50 mcg tablet 2018-09 00:00: 00 Yes [id number] 50ug Take 1 tablet by mouth every morning. [facility] acute hospital levothyroxi ne (SYNTHROID) 50 mcg tablet 2018-09 00:00: 00 Yes [id number] 50ug Take 1 tablet by mouth every morning. [facility] acute hospital levothyroxi ne (SYNTHROID) 50 mcg tablet 2018-09 00:00: 00 Yes [id number] 50ug Take 1 tablet by mouth every morning. [facility] acute hospital levothyroxi ne (SYNTHROID) 50 mcg tablet 2018-09 00:00: 00 Yes [id number] 50ug Take 1 tablet by mouth every morning. [facility] acute hospital levothyroxi ne (SYNTHROID) 50 mcg tablet 2018-09 00:00: 00 Yes [id number] 50ug Take 1 tablet by mouth every morning. [facility] acute hospital Centrum Centrum Yes Gurpreet Schultz not defined [facility] Levothyroxi ne Sodium Levothyroxi ne Sodium Yes Gurpreet Schultz 1 tablet in the morning on an empty stomach [facility] Centrum - Centrum - No QD Centrum - Euthyrox 75 MCG Euthyrox 75 MCG No Euthyrox 75 MCG Levothyroxi ne Sodium 75 MCG Levothyroxi ne Sodium 75 MCG No QD Levothyrox ine Sodium 75 MCG Benadryl Allergy 25 MG Benadryl Allergy 25 MG No 1{table t_at_be dtime_a s_neede d} QD Benadryl Allergy 25 MG Concerta 27 MG Concerta 27 MG No 1{table t_in_th e_morni ng} QD Concerta 27 MG Levothyroxi ne Sodium 75 MCG Levothyroxi ne Sodium 75 MCG No Levothyrox ine Sodium 75 MCG Levothyroxi ne Sodium 88 MCG Levothyroxi ne Sodium 88 MCG No QD Levothyrox ine Sodium 88 MCG Centrum - Centrum - No QD Centrum - Levothyroxi ne Sodium 88 MCG Levothyroxi ne Sodium 88 MCG No QD Levothyrox ine Sodium 88 MCG Levothyroxi ne Sodium 88 MCG Levothyroxi ne Sodium 88 MCG No QD Levothyrox ine Sodium 88 MCG Centrum Centrum No Centrum Levothyroxi ne Sodium 75 MCG Levothyroxi ne Sodium 75 MCG No QD Levothyrox ine Sodium 75 MCG Benadryl Allergy 25 MG Benadryl Allergy 25 MG No 1{table t_at_be dtime_a s_neede d} QD Benadryl Allergy 25 MG Centrum - Centrum - No QD Centrum - Levothyroxi ne Sodium 75 MCG Levothyroxi ne Sodium 75 MCG No QD Levothyrox ine Sodium 75 MCG Benadryl Allergy 25 MG Benadryl Allergy 25 MG No 1{table t_at_be dtime_a s_neede d} QD Benadryl Allergy 25 MG Centrum - Centrum - No QD Centrum - Levothyroxi ne Sodium 75 MCG Levothyroxi ne Sodium 75 MCG No QD Levothyrox ine Sodium 75 MCG Benadryl Allergy 25 MG Benadryl Allergy 25 MG No 1{table t_at_be dtime_a s_neede d} QD Benadryl Allergy 25 MG Centrum - Centrum - No QD Centrum - Levothyroxi ne Sodium 75 MCG Levothyroxi ne Sodium 75 MCG No QD Levothyrox ine Sodium 75 MCG Levothyroxi ne Sodium 75 MCG Levothyroxi ne Sodium 75 MCG No QD Levothyrox ine Sodium 75 MCG Centrum - Centrum - No QD Centrum - Benadryl Allergy 25 MG Benadryl Allergy 25 MG No 1{table t_at_be dtime_a s_neede d} QD Benadryl Allergy 25 MG Levothyroxi ne Sodium 75 MCG Levothyroxi ne Sodium 75 MCG No QD Levothyrox ine Sodium 75 MCG Centrum - Centrum - No QD Centrum - Euthyrox 75 MCG Euthyrox 75 MCG No Euthyrox 75 MCG Levothyroxi ne Sodium 75 MCG Levothyroxi ne Sodium 75 MCG No QD Levothyrox ine Sodium 75 MCG Benadryl Allergy 25 MG Benadryl Allergy 25 MG No 1{table t_at_be dtime_a s_neede d} QD Benadryl Allergy 25 MG Immunizations Ordered Immunization Name Filled Immunization Name Date Status Comments Source Kenalog (Triamcinolone) Kenalog (Triamcinolone) 2021-05-07 10:53:00 [facility] Kenalog (Triamcinolone) Kenalog (Triamcinolone) 2021-05-07 10:53:00 Completed [facility] Kenalog (Triamcinolone) Kenalog (Triamcinolone) 2021-05-07 10:53:00 Completed [facility] Influenza Virus Vaccine Quad .5 mL IM 6+ MO 2019-07-28 00:00:00 Completed [facility] Influenza Virus Vaccine Quad .5 mL IM 6+ MO (FLUZONE/FLULAVAL/F LUARIX) Unknown Completed [facility] Influenza Virus Vaccine Quad .5 mL IM 6+ MO (FLUZONE/FLULAVAL/F LUARIX) Unknown Completed [facility] Influenza Virus Vaccine Quad IM, Preserv and ABX Free 6 MO-64 YRS (FLUCELVAX) Unknown Completed [facility] Influenza Virus Vaccine Quad .5 mL IM 6+ MO (FLUZONE/FLULAVAL/F LUARIX) Unknown Completed [facility] Influenza Virus Vaccine Quad IM, Preserv and ABX Free 6 MO-64 YRS (FLUCELVAX) Unknown Completed [facility] Influenza Virus Vaccine Quad .5 mL IM 6+ MO (FLUZONE/FLULAVAL/F LUARIX) Unknown Completed [facility] Influenza Virus Vaccine Quad IM, Preserv and ABX Free 6 MO-64 YRS (FLUCELVAX) Unknown Completed [facility] Influenza Virus Vaccine Quad .5 mL IM 6+ MO (FLUZONE/FLULAVAL/F LUARIX) Unknown Completed [facility] Influenza Virus Vaccine Quad IM, Preserv and ABX Free 6 MO-64 YRS (FLUCELVAX) Unknown Completed [facility] Influenza Virus Vaccine Quad .5 mL IM 6+ MO (FLUZONE/FLULAVAL/F LUARIX) Unknown Completed [facility] Influenza Virus Vaccine Quad IM, Preserv and ABX Free 6 MO-64 YRS (FLUCELVAX) Unknown Completed [facility] Influenza Virus Vaccine Quad .5 mL IM 6+ MO (FLUZONE/FLULAVAL/F LUARIX) Unknown Completed [facility] Influenza Virus Vaccine Quad IM, Preserv and ABX Free 6 MO-64 YRS (FLUCELVAX) Unknown Completed [facility] Influenza Virus Vaccine Quad .5 mL IM 6+ MO (FLUZONE/FLULAVAL/F LUARIX) Unknown Completed [facility] Influenza Virus Vaccine Quad IM, Preserv and ABX Free 6 MO-64 YRS (FLUCELVAX) Unknown Completed [facility] Influenza Virus Vaccine Quad .5 mL IM 6+ MO (FLUZONE/FLULAVAL/F LUARIX) Unknown Completed [facility] Influenza Virus Vaccine Quad IM, Preserv and ABX Free 6 MO-64 YRS (FLUCELVAX) Unknown Completed [facility] Influenza Virus Vaccine Quad .5 mL IM 6+ MO (FLUZONE/FLULAVAL/F LUARIX) Unknown Completed [facility] Influenza Virus Vaccine Quad IM, Preserv and ABX Free 6 MO-64 YRS (FLUCELVAX) Unknown Completed [facility] Influenza Virus Vaccine Quad .5 mL IM 6+ MO (FLUZONE/FLULAVAL/F LUARIX) Unknown Completed [facility] Influenza Virus Vaccine Quad IM, Preserv and ABX Free 6 MO-64 YRS (FLUCELVAX) Unknown Completed [facility] Influenza Virus Vaccine Quad .5 mL IM 6+ MO (FLUZONE/FLULAVAL/F LUARIX) Unknown Completed [facility] Influenza Virus Vaccine Quad IM, Preserv and ABX Free 6 MO-64 YRS (FLUCELVAX) Unknown Completed [facility] Influenza Virus Vaccine Quad .5 mL IM 6+ MO (FLUZONE/FLULAVAL/F LUARIX) Unknown Completed [facility] Influenza Virus Vaccine Quad IM, Preserv and ABX Free 6 MO-64 YRS (FLUCELVAX) Unknown Completed [facility] Influenza Virus Vaccine Quad .5 mL IM 6+ MO (FLUZONE/FLULAVAL/F LUARIX) Unknown Completed [facility] Influenza Virus Vaccine Quad IM, Preserv and ABX Free 6 MO-64 YRS (FLUCELVAX) Unknown Completed [facility] Influenza Virus Vaccine Quad .5 mL IM 6+ MO (FLUZONE/FLULAVAL/F LUARIX) Unknown Completed [facility] Influenza Virus Vaccine Quad IM, Preserv and ABX Free 6 MO-64 YRS (FLUCELVAX) Unknown Completed [facility] Influenza Virus Vaccine Quad .5 mL IM 6+ MO (FLUZONE/FLULAVAL/F LUARIX) Unknown Completed [facility] Influenza Virus Vaccine Quad IM, Preserv and ABX Free 6 MO-64 YRS (FLUCELVAX) Unknown Completed [facility] Influenza Virus Vaccine Quad .5 mL IM 6+ MO (FLUZONE/FLULAVAL/F LUARIX) Unknown Completed [facility] Influenza Virus Vaccine Quad IM, Preserv and ABX Free 6 MO-64 YRS (FLUCELVAX) Unknown Completed [facility] Influenza Virus Vaccine Quad .5 mL IM 6+ MO (FLUZONE/FLULAVAL/F LUARIX) Unknown Completed [facility] Influenza Virus Vaccine Quad IM, Preserv and ABX Free 6 MO-64 YRS (FLUCELVAX) Unknown Completed [facility] Influenza Virus Vaccine Quad .5 mL IM 6+ MO (FLUZONE/FLULAVAL/F LUARIX) Unknown Completed [facility] Influenza Virus Vaccine Quad IM, Preserv and ABX Free 6 MO-64 YRS (FLUCELVAX) Unknown Completed [facility] Influenza Virus Vaccine Quad .5 mL IM 6+ MO (FLUZONE/FLULAVAL/F LUARIX) Unknown Completed [facility] Influenza Virus Vaccine Quad IM, Preserv and ABX Free 6 MO-64 YRS (FLUCELVAX) Unknown Completed [facility] Influenza Virus Vaccine Quad .5 mL IM 6+ MO (FLUZONE/FLULAVAL/F LUARIX) Unknown Completed [facility] Influenza Virus Vaccine Quad IM, Preserv and ABX Free 6 MO-64 YRS (FLUCELVAX) Unknown Completed [facility] Influenza Virus Vaccine Quad .5 mL IM 6+ MO (FLUZONE/FLULAVAL/F LUARIX) Unknown Completed [facility] Influenza Virus Vaccine Quad IM, Preserv and ABX Free 6 MO-64 YRS (FLUCELVAX) Unknown Completed [facility] Influenza Virus Vaccine Quad .5 mL IM 6+ MO (FLUZONE/FLULAVAL/F LUARIX) Unknown Completed [facility] Influenza Virus Vaccine Quad IM, Preserv and ABX Free 6 MO-64 YRS (FLUCELVAX) Unknown Completed [facility] Influenza Virus Vaccine Quad .5 mL IM 6+ MO (FLUZONE/FLULAVAL/F LUARIX) Unknown Completed [facility] Influenza Virus Vaccine Quad IM, Preserv and ABX Free 6 MO-64 YRS (FLUCELVAX) Unknown Completed [facility] Influenza Virus Vaccine Quad .5 mL IM 6+ MO (FLUZONE/FLULAVAL/F LUARIX) Unknown Completed [facility] Influenza Virus Vaccine Quad IM, Preserv and ABX Free 6 MO-64 YRS (FLUCELVAX) Unknown Completed [facility] Influenza Virus Vaccine Quad .5 mL IM 6+ MO (FLUZONE/FLULAVAL/F LUARIX) Unknown Completed [facility] Influenza Virus Vaccine Quad IM, Preserv and ABX Free 6 MO-64 YRS (FLUCELVAX) Unknown Completed [facility] Influenza Virus Vaccine Quad .5 mL IM 6+ MO (FLUZONE/FLULAVAL/F LUARIX) Unknown Completed [facility] Influenza Virus Vaccine Quad IM, Preserv and ABX Free 6 MO-64 YRS (FLUCELVAX) Unknown Completed [facility] Influenza Virus Vaccine Quad .5 mL IM 6+ MO (FLUZONE/FLULAVAL/F LUARIX) Unknown Completed [facility] Influenza Virus Vaccine Quad IM, Preserv and ABX Free 6 MO-64 YRS (FLUCELVAX) Unknown Completed [facility] Influenza Virus Vaccine Quad .5 mL IM 6+ MO (FLUZONE/FLULAVAL/F LUARIX) Unknown Completed [facility] Influenza Virus Vaccine Quad IM, Preserv and ABX Free 6 MO-64 YRS (FLUCELVAX) Unknown Completed [facility] Influenza Virus Vaccine Quad .5 mL IM 6+ MO (FLUZONE/FLULAVAL/F LUARIX) Unknown Completed [facility] Influenza Virus Vaccine Quad IM, Preserv and ABX Free 6 MO-64 YRS (FLUCELVAX) Unknown Completed [facility] Influenza Virus Vaccine Quad .5 mL IM 6+ MO (FLUZONE/FLULAVAL/F LUARIX) Unknown Completed [facility] Influenza Virus Vaccine Quad IM, Preserv and ABX Free 6 MO-64 YRS (FLUCELVAX) Unknown Completed [facility] Influenza Virus Vaccine Quad .5 mL IM 6+ MO (FLUZONE/FLULAVAL/F LUARIX) Unknown Completed [facility] Influenza Virus Vaccine Quad IM, Preserv and ABX Free 6 MO-64 YRS (FLUCELVAX) Unknown Completed [facility] Influenza Virus Vaccine Quad .5 mL IM 6+ MO (FLUZONE/FLULAVAL/F LUARIX) Unknown Completed [facility] Influenza Virus Vaccine Quad IM, Preserv and ABX Free 6 MO-64 YRS (FLUCELVAX) Unknown Completed [facility] Influenza Virus Vaccine Quad .5 mL IM 6+ MO (FLUZONE/FLULAVAL/F LUARIX) Unknown Completed [facility] Influenza Virus Vaccine Quad IM, Preserv and ABX Free 6 MO-64 YRS (FLUCELVAX) Unknown Completed [facility] Influenza Virus Vaccine Quad .5 mL IM 6+ MO (FLUZONE/FLULAVAL/F LUARIX) Unknown Completed [facility] Influenza Virus Vaccine Quad IM, Preserv and ABX Free 6 MO-64 YRS (FLUCELVAX) Unknown Completed [facility] Influenza Virus Vaccine Quad .5 mL IM 6+ MO (FLUZONE/FLULAVAL/F LUARIX) Unknown Completed [facility] Influenza Virus Vaccine Quad IM, Preserv and ABX Free 6 MO-64 YRS (FLUCELVAX) Unknown Completed [facility] TDAP Unknown Completed [facility] Vital Signs Vital Name Observation Time Observation Value Comments S chris Systolic blood pressure 2023-09-30 16:58:00 102 mm[Hg] [facility] Diastolic blood pressure 2023-09-30 16:58:00 67 mm[Hg] [facility] Heart rate 2023-09-30 16:58:00 82 /min [facility] Body temperature 2023-09-30 16:58:00 36.44 Lena [facility] Respiratory rate 2023-09-30 16:58:00 18 /min [facility] Body height 2023-09-30 16:58:00 175.3 cm [facility] Body weight 2023-09-30 16:58:00 70.308 kg [facility] BMI 2023-09-30 16:58:00 22.89 kg/m2 [facility] Systolic blood pressure 2023-09-16 16:18:00 115 mm[Hg] [facility] Diastolic blood pressure 2023-09-16 16:18:00 75 mm[Hg] [facility] Heart rate 2023-09-16 16:18:00 93 /min [facility] Body temperature 2023-09-16 16:18:00 36.67 Lena [facility] Body weight 2023-09-16 16:18:00 69.128 kg [facility] BMI 2023-09-16 16:18:00 22.51 kg/m2 [facility] Systolic blood pressure 2023-09-01 16:40:00 120 mm[Hg] [facility] Diastolic blood pressure 2023-09-01 16:40:00 74 mm[Hg] [facility] Heart rate 2023-09-01 16:40:00 92 /min [facility] Body temperature 2023-09-01 16:40:00 35.67 Lena [facility] Respiratory rate 2023-09-01 16:40:00 18 /min [facility] Body height 2023-09-01 16:40:00 175.3 cm [facility] Body weight 2023-09-01 16:40:00 67.405 kg [facility] BMI 2023-09-01 16:40:00 21.94 kg/m2 [facility] height 2023-08-23 13:00:00 69 [in_i] Commo n [facility] weight 2023-08-23 13:00:00 140 [lb_av] Comm on [facility] bmi 2023-08-23 13:00:00 20.67 kg/m2 Comm on [facility] Systolic blood pressure 2023-08-18 16:11:00 114 mm[Hg] [facility] Diastolic blood pressure 2023-08-18 16:11:00 73 mm[Hg] [facility] Heart rate 2023-08-18 16:11:00 81 /min [facility] Body temperature 2023-08-18 16:11:00 35.89 Lena [facility] Respiratory rate 2023-08-18 16:11:00 18 /min [facility] Body height 2023-08-18 16:11:00 175.3 cm [facility] Body weight 2023-08-18 16:11:00 67.042 kg [facility] BMI 2023-08-18 16:11:00 21.83 kg/m2 [facility] Systolic blood pressure 2023-08-04 16:10:00 124 mm[Hg] [facility] Diastolic blood pressure 2023-08-04 16:10:00 81 mm[Hg] [facility] Heart rate 2023-08-04 16:10:00 93 /min [facility] Body temperature 2023-08-04 16:10:00 36.33 Lena [facility] Respiratory rate 2023-08-04 16:10:00 19 /min [facility] Body height 2023-08-04 16:10:00 175.3 cm [facility] Body weight 2023-08-04 16:10:00 66.951 kg [facility] BMI 2023-08-04 16:10:00 21.80 kg/m2 [facility] Systolic blood pressure 2023-07-22 19:39:00 116 mm[Hg] [facility] Diastolic blood pressure 2023-07-22 19:39:00 76 mm[Hg] [facility] Heart rate 2023-07-22 19:39:00 86 /min [facility] Body temperature 2023-07-22 19:39:00 36.67 Lena [facility] Respiratory rate 2023-07-22 19:39:00 17 /min [facility] Body height 2023-07-22 19:39:00 175.3 cm [facility] Body weight 2023-07-22 19:39:00 65.998 kg [facility] BMI 2023-07-22 19:39:00 21.49 kg/m2 [facility] Systolic blood pressure 2023-07-08 15:28:00 117 mm[Hg] [facility] Diastolic blood pressure 2023-07-08 15:28:00 78 mm[Hg] [facility] Heart rate 2023-07-08 15:28:00 93 /min [facility] Body temperature 2023-07-08 15:28:00 36.72 Lena [facility] Body height 2023-07-08 15:28:00 175.3 cm [facility] Body weight 2023-07-08 15:28:00 64.048 kg [facility] BMI 2023-07-08 15:28:00 20.85 kg/m2 [facility] Oxygen saturation in Arterial blood by Pulse oximetry 2023-07-08 15:28:00 99 /min [facility] Systolic blood pressure 2023-07-08 15:28:00 117 mm[Hg] [facility] Diastolic blood pressure 2023-07-08 15:28:00 78 mm[Hg] [facility] Heart rate 2023-07-08 15:28:00 93 /min [facility] Body temperature 2023-07-08 15:28:00 36.72 Lena [facility] Body height 2023-07-08 15:28:00 175.3 cm [facility] Body weight 2023-07-08 15:28:00 64.048 kg [facility] BMI 2023-07-08 15:28:00 20.85 kg/m2 [facility] Oxygen saturation in Arterial blood by Pulse oximetry 2023-07-08 15:28:00 99 /min [facility] Systolic blood pressure 2023-06-14 18:11:00 146 mm[Hg] [facility] Diastolic blood pressure 2023-06-14 18:11:00 86 mm[Hg] [facility] Heart rate 2023-06-14 18:11:00 99 /min [facility] Body temperature 2023-06-14 18:11:00 37.39 Lena [facility] Respiratory rate 2023-06-14 18:11:00 18 /min [facility] Body height 2023-06-14 18:11:00 175.3 cm [facility] Body weight 2023-06-14 18:11:00 62.852 kg [facility] BMI 2023-06-14 18:11:00 20.46 kg/m2 [facility] height 2023-05-27 10:20:00 69 [in_i] Commo n [facility] weight 2023-05-27 10:20:00 137.6 [lb_av] Co mmon [facility] temperature 2023-05-27 10:20:00 98.3 [degF] Com [facility] bmi 2023-05-27 10:20:00 20.32 kg/m2 Comm on [facility] oximetry 2023-05-27 10:20:00 99 % Commo n [facility] respiratory rate 2023-05-27 10:20:00 18 /min [facility] blood pressure systolic 2023-05-27 10:20:00 122 mm[Hg] [facility] blood pressure diastolic 2023-05-27 10:20:00 66 mm[Hg] [facility] height 2022-11-16 14:20:00 69 [in_i] Commo n [facility] weight 2022-11-16 14:20:00 131.9 [lb_av] Co mmon [facility] temperature 2022-11-16 14:20:00 97.3 [degF] Com [facility] bmi 2022-11-16 14:20:00 19.48 kg/m2 Comm on [facility] oximetry 2022-11-16 14:20:00 99 % Commo n [facility] respiratory rate 2022-11-16 14:20:00 18 /min [facility] blood pressure systolic 2022-11-16 14:20:00 116 mm[Hg] [facility] blood pressure diastolic 2022-11-16 14:20:00 63 mm[Hg] [facility] height 2022-03-10 11:00:00 69 [in_i] Commo n [facility] weight 2022-03-10 11:00:00 133 [lb_av] Comm on [facility] temperature 2022-03-10 11:00:00 97 [degF] Comm on [facility] bmi 2022-03-10 11:00:00 19.64 kg/m2 Comm on [facility] height 2021-10-02 11:30:00 69 [in_i] Commo n [facility] weight 2021-10-02 11:30:00 133 [lb_av] Comm on [facility] temperature 2021-10-02 11:30:00 98 [degF] Comm on [facility] bmi 2021-10-02 11:30:00 19.64 kg/m2 Comm on [facility] Systolic blood pressure 2021-09-08 21:17:00 125 mm[Hg] [facility] Diastolic blood pressure 2021-09-08 21:17:00 86 mm[Hg] [facility] Heart rate 2021-09-08 21:17:00 83 /min [facility] Body temperature 2021-09-08 21:17:00 36.78 Lena [facility] Respiratory rate 2021-09-08 21:17:00 16 /min [facility] Body height 2021-09-08 21:17:00 175.3 cm [facility] Body weight 2021-09-08 21:17:00 60.555 kg [facility] BMI 2021-09-08 21:17:00 19.71 kg/m2 [facility] height 2021-05-07 09:50:00 69 [in_i] Commo n [facility] weight 2021-05-07 09:50:00 136.6 [lb_av] Co on [facility] temperature 2021-05-07 09:50:00 97.4 [degF] Com [facility] bmi 2021-05-07 09:50:00 20.17 kg/m2 Comm on [facility] oximetry 2021-05-07 09:50:00 98 % Commo n [facility] respiratory rate 2021-05-07 09:50:00 18 /min [facility] blood pressure systolic 2021-05-07 09:50:00 100 mm[Hg] [facility] blood pressure diastolic 2021-05-07 09:50:00 70 mm[Hg] [facility] height 2021-04-01 13:30:00 69 [in_i] Commo n [facility] weight 2021-04-01 13:30:00 139.8 [lb_av] Co on [facility] temperature 2021-04-01 13:30:00 98.2 [degF] Com [facility] bmi 2021-04-01 13:30:00 20.64 kg/m2 Comm on [facility] oximetry 2021-04-01 13:30:00 98 % Commo n [facility] respiratory rate 2021-04-01 13:30:00 16 /min [facility] blood pressure systolic 2021-04-01 13:30:00 119 mm[Hg] [facility] blood pressure diastolic 2021-04-01 13:30:00 70 mm[Hg] [facility] Procedures Procedure Date / Time Performed Performing Clinician Source TDAP VACCINE, >11 YRS, IM 2023-09-30 17:10:44 Nydia Arthur [facility] POCT URINALYSIS W/O SPECIFIC GRAVITY 2023-09-30 17:01:00 Bailey Horton [facility] SECOND AND THIRD TRIMESTER ULTRASOUND 2023-09-24 17:53:00 Bailey Horton [facility] POCT URINALYSIS W/O SPECIFIC GRAVITY 2023-09-16 16:19:00 Bailey Horton [facility] POCT URINALYSIS W/O SPECIFIC GRAVITY 2023-09-01 16:42:00 Bailey Horton [facility] FIRST TRIMESTER ULTRASOUND 2023-08-27 15:42:00 Bailey Horton [facility] URINE CULTURE 2023-08-18 19:38:00 Wyatt Sams [facility] POCT URINALYSIS W/O SPECIFIC GRAVITY 2023-08-18 16:14:00 Bailey Horton [facility] POCT URINALYSIS W/O SPECIFIC GRAVITY 2023-08-04 00:00:00 Bailey Horton [facility] SECOND AND THIRD TRIMESTER ULTRASOUND 2023-07-30 18:11:00 Bailey Horton [facility] SECOND AND THIRD TRIMESTER ULTRASOUND 2023-07-30 17:55:00 Bailey Horton [facility] MISCELLANEOUS SENDOUT TEST 2023-07-26 06:01:00 D octor Unassigned, [place] POCT URINALYSIS W/O SPECIFIC GRAVITY 2023-07-22 00:00:00 Bailey Horton [facility] POCT URINALYSIS W/O SPECIFIC GRAVITY 2023-07-08 16:29:00 Bailey Horton [facility] POCT URINALYSIS W/O SPECIFIC GRAVITY 2023-07-08 16:29:00 Bailey Horton [facility] URINE CULTURE 2023-07-08 16:28:00 Bailey Horton [facility] FREE T4 2023-07-08 16:24:00 Bailey Horton [facility] THYROID STIMULATING HORMONE 2023-07-08 16:24:00 Bailey Horton [facility] QUAD SCRN 2023-07-08 16:24:00 Bailey Horton [facility] FREE T3 2023-07-08 16:24:00 Bailey Horton [facility] FREE T4 2023-07-08 16:24:00 Bailey Horton [facility] THYROID STIMULATING HORMONE 2023-07-08 16:24:00 Bailey Horton [facility] QUAD SCRN 2023-07-08 16:24:00 Bailey Horton [facility] FREE T3 2023-07-08 16:24:00 Bailey Horton [facility] POCT URINALYSIS W/O SPECIFIC GRAVITY 2023-07-08 15:27:00 Bailey Horton [facility] POCT URINALYSIS W/O SPECIFIC GRAVITY 2023-07-08 15:27:00 Bailey Horton [facility] FLU VACC ([id number]), 6 MO-64 YRS, .5ML, IM, QUAD (FLUCELVAX) 2023-06-14 18:28:19 Anya Hughes [facility] POCT TEST 2023-06-14 18:14:00 Anya Hughes [facility] POCT URINALYSIS W/O SPECIFIC GRAVITY 2023-06-14 18:14:00 Anya Hughes [facility] PATIENT FINANCIAL POLICY 2023-06-14 17:27:18 Doctor Unassigned, [place] NO SHOW OR MISSED APPOINTMENT POLICY ACKNOWLEDGEMENT 2023-06-14 17:26:58 Doctor Unassigned, [place] NOTICE OF PRIVACY PRACTICES 2023-06-14 17:26:38 Doctor Unassigned, [place] CONSENT/REFUSAL FOR DIAGNOSIS AND TREATMENT 2023-06-14 17:26:14 Doctor Unassigned, [place] ASSIGNMENT OF BENEFITS 2023-06-14 17:25:56 Docto r Unassigned, [place] POCT TEST 2021-09-08 22:33:00 Garret Arthur [facility] Encounters Start Date/Time End Date/Time Encounter Type Admission Type Attending Clinicians Care Facility Care Department Encounter ID Source 2023-08-19 16:01:00 Outpatient Schultz, [facility] [id number] [facility] 2022-11-13 10:13:00 Outpatient Schultz, Gurpreet [facility] [id number] [facility] 2021-10-08 13:29:00 Outpatient Schultz, Gurpreet [facility] [id number] [facility] 2021-10-08 12:59:03 Outpatient Schultz, [facility] [id number] [facility] 2021-10-08 12:52:41 [facility] [id number] [facility] 2021-10-08 12:51:59 Outpatient Schultz, Gurpreet [facility] [id number] [facility] 2021-10-08 12:44:44 Outpatient Schultz, [facility] [id number] [facility] 2021-10-08 12:40:34 [facility] [id number] [facility] 2021-10-08 12:40:27 [facility] [id number] [facility] 2021-10-08 11:12:06 Outpatient Schultz, Gurpreet [facility] [id number] [facility] 2023-09-30 10:45:00 2023-09-30 11:58:40 Outpatient NYDIA LEVINE [facility] [id number] General acute hospital 2023-09-30 10:45:00 2023-09-30 11:58:40 Routine Visit PuneetanitasanjuanaNydia April [facility] [place] [facility] MATERNAL & CHILD [facility] [id number] [id number] [id number] [id number] General acute hospital 2023-09-28 00:00:00 2023-09-28 00:00:00 Abstract Bailey Horton [facility] [place] [facility] MATERNAL & CHILD [facility]ALTH [facility] [id number] [id number] [id number] [id number] General acute hospital 2023-09-24 11:30:00 2023-09-24 14:26:28 Outpatient KACIE RENTERIA [facility] [id number] General acute hospital 2023-09-24 11:30:00 2023-09-24 14:26:28 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 Ultrasound, Kacie Rubio Ikuvbogie [facility] [place] [facility] MATERNAL & CHILD [facility] 1.0.114 [id number] [id number] [id number] General acute hospital 2023-09-16 10:15:00 2023-09-16 10:32:26 Outpatient R WYATT SAMS [facility] [id number] General acute hospital 2023-09-16 10:15:00 2023-09-16 10:32:26 Routine Visit Risk, Anatoly-Rmchp-N p/High Wyatt Sams N [facility] [place] [facility] MATERNAL & CHILD [facility] [id number] [id number] [id number] [id number] General acute hospital 2023-09-02 00:00:00 2023-09-02 00:00:00 Abstract Bailey Horton [facility] 1..114 350.1.13.10 [id number] [id number] General acute hospital 2023-09-01 10:30:00 2023-09-01 11:05:59 Outpatient WYATT JUNIOR [facility] [id number] General acute hospital 2023-09-01 10:30:00 2023-09-01 11:05:59 Routine Visit Risk, Ang-Rmchp-N p/High Wyatt Sams [facility] [place] [facility] & CHILD [facility] [id number] [id number] [id number] [id number] General acute hospital 2023-08-27 09:30:00 2023-08-27 10:09:41 Outpatient Tim GONZALEZKACIE [facility] [id number] General acute hospital 2023-08-27 09:30:00 2023-08-27 10:09:41 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 Ultrasound, Maritza Kacie Gonzalez Bela [facility] [place] [facility] & CHILD [facility] [id number] [id number] [id number] [id number] General acute hospital 2023-08-23 00:00:00 2023-08-23 00:00:00 OFFICE VISIT ESTAB PT LEVEL 3 STLMLC STLMLC [id number] [facility] 2023-08-18 10:00:00 2023-08-18 10:22:48 Outpatient WYATT JUNIOR [facility] [id number] General acute hospital 2023-08-18 10:00:00 2023-08-18 10:22:48 Routine Visit Risk, RkRmchp-N p/High Wyatt Sams [facility] [place] [facility] & CHILD [facility] [id number] [id number] [id number] [id number] General acute hospital 2023-08-04 10:15:00 2023-08-04 10:32:36 Outpatient R WYATT SAMS [facility] [id number] General acute hospital 2023-08-04 10:15:00 2023-08-04 10:32:36 Routine Visit Risk, Ang-chp-N p/High Bailey Horton Kristin N [facility] [place] [facility] MATERNAL & CHILD [facility] 1.84.114 [id number] [id number] [id number] General acute hospital 2023-08-04 00:00:00 2023-08-04 00:00:00 Telephone Vickie Celis [facility] [place] [place] 1.840.114 [id number] [id number] [id number] General acute hospital 2023-07-30 10:45:00 2023-07-30 13:21:34 Outpatient P PIO GUDINO PIO [facility] [id number] General acute hospital 2023-07-30 10:45:00 2023-07-30 13:21:34 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 Ultrasound, Maritza Gudino Pio [facility] [place] [facility] & CHILD [facility] 1.840.114 [id number] [id number] [id number] General acute hospital 2023-07-30 00:00:00 2023-07-30 00:00:00 Abstract Bailey Horton [facility] [place] [facility] & CHILD [facility] 1.840.114 [id number] [id number] [id number] General acute hospital 2023-07-26 12:00:00 2023-07-26 12:05:24 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 General acute hospital 2023-07-26 00:00:00 2023-07-26 00:00:00 Orders Only Doctor Unassigned, [place] [facility] 1.0.114 350.1.13.10 4.2.7.2.686 [id number] General acute hospital 2023-07-22 13:45:00 2023-07-22 13:56:45 Outpatient WYATT JUNIOR [facility] [id number] General acute hospital 2023-07-22 13:45:00 2023-07-22 13:56:45 Routine Visit Risk, Ang-Rmchp-N p/High Robby Russell Kristin N [facility] [place] [facility] & CHILD [facility] 1.0.114 350.1.13.10 4.2.7.2.686 [id number] General acute hospital 2023-07-14 00:00:00 2023-07-14 00:00:00 Abstract Bailey Horton [facility] [place] [facility] & CHILD [facility] 1.840.114 350.1.13.10 4.2.7.2.686 [id number] General acute hospital 2023-07-14 00:00:00 2023-07-14 00:00:00 Telephone Bailey Horton [facility] [place] [facility] & CHILD [facility] 1.840.114 350.1.13.10 4.2.7.2.686 [id number] General acute hospital 2023-07-12 10:45:00 2023-07-12 10:45:00 Outpatient R [facility] [id number] General acute hospital 2023-07-08 10:45:00 2023-07-08 11:23:58 Outpatient R BAILEY HORTON [facility] [id number] General acute hospital 2023-07-08 10:45:00 2023-07-08 11:23:58 Routine Visit Risk, Jd-N p/High Bailey Horton [facility] [place] [facility] CHILD [facility] 1.840.114 350.1.13.10 4.2.7.2.686 [id number] General acute hospital 2023-06-16 00:00:00 2023-06-16 00:00:00 Telephone Anya Hughes [facility] 1.840.114 350.1.13.10 4.2.7.2.686 [id number] General acute hospital 2023-06-14 13:00:00 2023-06-14 14:24:06 Outpatient R ANYA HUGHES [facility] [id number] General acute hospital 2023-06-14 13:00:00 2023-06-14 14:24:06 Initial Visit Provider, Jd Hughes [facility] [place] [facility] & CHILD [facility] 1..840.114 350.1.13.10 4.2.7.2.686 [id number] General acute hospital 2023-06-14 00:00:00 2023-06-14 00:00:00 Orders Only Doctor Unassigned, [place] [facility] 1.840.114 350.1.13.10 4.2.7.2.686 [id number] General acute hospital 2023-05-27 00:00:00 2023-05-27 00:00:00 OFFICE VISIT ESTAB PT LEVEL 4 STLMLC STLMLC [id number] [facility] 2022-11-16 00:00:00 2022-11-16 00:00:00 PREV VISIT EST AGE 18-39 STLMLC STLMLC [id number] [facility] 2022-09-11 00:00:00 2022-09-11 00:00:00 (TEL) STLMLC STLMLC [id number] [facility] 2022-07-16 12:45:00 2022-07-16 12:45:00 Outpatient R SAMM BLOUNT [facility] [id number] General acute hospital 2022-03-10 00:00:00 2022-03-10 00:00:00 OFFICE VISIT EST PT LEVEL 3 STLMLC STLMLC [id number] [facility] 2021-12-08 10:30:00 2021-12-08 10:30:00 Outpatient R NYDIA ARTHUR [facility] [id number] General acute hospital 2021-10-02 00:00:00 2021-10-02 00:00:00 OFFICE VISIT EST PT LEVEL 3 STLMLC STLMLC [id number] [facility] 2021-09-08 15:00:00 2021-09-08 16:05:45 Outpatient R NYDIA ARTHUR [facility] [id number] General acute hospital 2021-09-08 15:00:00 2021-09-08 16:05:45 Office Visit Nydia Arthur [facility]ERNAL & [facility] 1..840.114 350.1.13.10 4.2.7.2.686 [id number] General acute hospital 2021-09-08 00:00:00 2021-09-08 00:00:00 Orders Only Doctor Unassigned, [place] [facility] 1.2.840.114 350.1.13.10 4.2.7.2.686 [id number] General acute hospital 2021-09-04 14:45:00 2021-09-04 14:45:00 Outpatient ELIZABETH RODRIGUEZ [facility] [id number] General acute hospital 2021-08-25 10:45:00 2021-08-25 10:45:00 Outpatient NYDIA LEVINE [facility] [id number] General acute hospital 2021-07-10 00:00:00 2021-07-10 00:00:00 Patient Secure Msg Doctor Unassigned, [place] [facility] 1.2.840.114 350.1.13.10 4.2.7.2.686 [id number] General acute hospital 2021-07-08 00:00:00 2021-07-08 00:00:00 [facility]TEL[facility] ST[facility] [id number] [facility] 2021-05-12 10:45:00 2021-05-12 10:45:00 Outpatient NYDIA LEVINE [facility] [id number] General acute hospital 2021-05-07 00:00:00 2021-05-07 00:00:00 OFFICE VISIT EST PT LEVEL 3 STLMLC STLMLC [id number] [facility] 2021-05-06 00:00:00 2021-05-06 00:00:00 (TEL) STLMLC STLMLC [id number] [facility] 2021-04-01 00:00:00 2021-04-01 00:00:00 OFFICE VISIT EST PT LEVEL 3 STLMLC STLMLC [id number] [facility] 2021-03-17 08:43:06 2021-03-17 09:29:43 Office Visit Nydia Arthur [facility] [place] [facility] CHILD [facility] 1..840.114 350.1.13.10 4.2.7.2.686 [id number] General acute hospital 2021-03-17 08:45:00 2021-03-17 08:45:00 Outpatient R NYDIA ARTHUR [facility] [id number] General acute hospital 2020-12-26 00:00:00 2020-12-26 00:00:00 Outpatient STLMLC STLMLC [id number] [facility] 2020-11-25 00:00:00 2020-11-25 00:00:00 Outpatient STLMLC STLMLC [id number] [facility] 2020-11-19 15:15:58 2020-11-19 16:03:57 Office Visit Merari Grover [facility] [place] [facility] MATERNAL & CHILD [facility] 1..840.114 350.1.13.10 4.2.7.2.686 [id number] General acute hospital 2020-11-19 15:15:00 2020-11-19 15:15:00 Outpatient R MERARI GROVER [facility] [id number] General acute hospital 2020-11-01 15:43:26 2020-11-01 16:35:20 Urgent Care Provider, [facility] Schre[facility] Office [address] ..840.114 350.1.13.10 4.2.7.2.686 [id number] General acute hospital 2020-11-01 15:40:00 2020-11-01 15:40:00 Outpatient R [facility] [id number] General acute hospital 2020-09-02 11:22:43 2020-09-02 12:04:51 [facility] 1.2.840.114 350.1.13.10 4.2.7.2.686 [id number] General acute hospital 2020-09-02 11:20:00 2020-09-02 11:20:00 Outpatient DG WAKE[place] HOWARD [facility] [id number] General acute hospital 2020-08-19 11:20:00 2020-08-19 11:20:00 Outpatient DG [place] DG [facility] [id number] General acute hospital 2020-08-06 14:00:00 2020-08-06 14:00:00 Outpatient Reanna HORN DG GOINSEDG [facility] [id number] General acute hospital 2020-07-11 14:00:00 2020-07-11 14:00:00 Outpatient Reanna KORY, DG GOINSEDG [facility] [id number] General acute hospital 2020-06-27 14:00:00 2020-06-27 14:00:00 Outpatient DG [place] HOWARD [facility] [id number] General acute hospital 2020-06-07 00:00:00 2020-06-07 00:00:00 [facility] 1.2.840.114 350.1.13.10 4.2.7.2.686 [id number] General acute hospital 2020-06-03 00:00:00 2020-06-03 00:00:00 Outpatient STLMLC STLMLC [id number] [facility] 2020-05-23 10:17:19 2020-05-23 23:59:00 [facility] 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 Main Dg Horn [facility] Building 1.2.840.114 350.1.13.10 4.2.7.2.686 [id number] General acute hospital 2020-05-23 00:00:00 2020-05-23 00:00:00 Outpatient DG [place] DG [facility] [id number] General acute hospital 2020-05-23 00:00:00 2020-05-23 00:00:00 Orders Only Doctor Unassigned, [place] [facility] 1.2.840.114 350.1.13.10 4.2.7.2.686 [id number] General acute hospital 2020-05-17 12:56:45 2020-05-17 14:18:24 Office Visit Dg Horn [facility] 1.2.840.114 350.1.13.10 4.2.7.2.686 [id number] General acute hospital 2020-05-17 13:00:00 2020-05-17 13:00:00 Outpatient DG [place] DG [facility] [id number] General acute hospital 2020-04-24 00:00:00 2020-04-24 00:00:00 Orders Only Doctor Unassigned, [place] [facility] 1.2.840.114 350.1.13.10 4.2.7.2.686 [id number] General acute hospital 2020-04-17 13:15:00 2020-04-17 13:15:00 Outpatient [facility] [id number] [facility] 2019-11-30 13:15:00 2019-11-30 13:15:00 Outpatient [facility] [id number] [facility] 2019-11-16 10:00:00 2019-11-16 10:00:00 Outpatient [facility] [place] [facility] [id number] [facility] Results Test Description Test Time Test Comments Results Result [facility] SPECIFIC [id number] 16:19:00* Test Item Value Reference Range Interpretation Comme nts POCT PH U (test code = 3254) 5 mg/dl 5-8 POCT U LEUK EST (test code = 3263) negative Negative - Negative POCT U NIT (test code = 3262) negative Negative - Negati ve POCT U PROT (test code = 3259) trace Negative - Negat roe POCT U GLU (test code = 3256) negative Negative - Negati ve POCT U KETONE (test code = 3258) negative Negative - Neg ative POCT U BLD (test code = 3257) negative Negative - Negati ve [facility] URINALYSIS W/O SPECIFIC [id number] 16:43:00* Test Item Value Reference Range Interpretation Comme nts POCT PH U (test code = 3254) 7 mg/dl 5-8 POCT U LEUK EST (test code = 3263) trace Negative - Negative POCT U NIT (test code = 3262) neg Negative - Negati ve POCT U PROT (test code = 3259) trace Negative - Negat roe POCT U GLU (test code = 3256) neg Negative - Negati ve POCT U KETONE (test code = 3258) neg Negative - Neg ative POCT U BLD (test code = 3257) neg Negative - Negati ve [facility] SPECIFIC [id number] 16:43:00* Test Item Value Reference Range Interpretation Comme nts POCT PH U (test code = 3254) 7 mg/dl 5-8 POCT U LEUK EST (test code = 3263) trace Negative - Negative POCT U NIT (test code = 3262) neg Negative - Negati ve POCT U PROT (test code = 3259) trace Negative - Negat roe POCT U GLU (test code = 3256) neg Negative - Negati ve POCT U KETONE (test code = 3258) neg Negative - Neg ative POCT U BLD (test code = 3257) neg Negative - Negati ve [facility] URINALYSIS W/O SPECIFIC [id number] 16:43:00* Test Item Value Reference Range Interpretation Comme nts POCT PH U (test code = 3254) 7 mg/dl 5-8 POCT U LEUK EST (test code = 3263) trace Negative - Negative POCT U NIT (test code = 3262) neg Negative - Negati ve POCT U PROT (test code = 3259) trace Negative - Negat roe POCT U GLU (test code = 3256) neg Negative - Negati ve POCT U KETONE (test code = 3258) neg Negative - Neg ative POCT U BLD (test code = 3257) neg Negative - Negati ve [facility] URINALYSIS W/O SPECIFIC [id number] 16:15:00* Test Item Value Reference Range Interpretation Comme nts POCT PH U (test code = 3254) 7 mg/dl 5-8 POCT U LEUK EST (test code = 3263) TRACE Negative - Negative POCT U NIT (test code = 3262) NEG Negative - Negati ve POCT U PROT (test code = 3259) TRACE Negative - Negat roe POCT U GLU (test code = 3256) NEG Negative - Negati ve POCT U KETONE (test code = 3258) NEG Negative - Neg ative POCT U BLD (test code = 3257) NEG Negative - Negati ve [facility] URINALYSIS W/O SPECIFIC [id number] 16:15:00* Test Item Value Reference Range Interpretation Comme nts POCT PH U (test code = 3254) 7 mg/dl 5-8 POCT U LEUK EST (test code = 3263) TRACE Negative - Negative POCT U NIT (test code = 3262) NEG Negative - Negati ve POCT U PROT (test code = 3259) TRACE Negative - Negat roe POCT U GLU (test code = 3256) NEG Negative - Negati ve POCT U KETONE (test code = 3258) NEG Negative - Neg ative POCT U BLD (test code = 3257) NEG Negative - Negati ve [facility] URINALYSIS W/O SPECIFIC [id number] 16:15:00* Test Item Value Reference Range Interpretation Comme nts POCT PH U (test code = 3254) 7 mg/dl 5-8 POCT U LEUK EST (test code = 3263) TRACE Negative - Negative POCT U NIT (test code = 3262) NEG Negative - Negati ve POCT U PROT (test code = 3259) TRACE Negative - Negat roe POCT U GLU (test code = 3256) NEG Negative - Negati ve POCT U KETONE (test code = 3258) NEG Negative - Neg ative POCT U BLD (test code = 3257) NEG Negative - Negati ve [facility] URINALYSIS W/O SPECIFIC [id number] 16:15:00* Test Item Value Reference Range Interpretation Comme nts POCT PH U (test code = 3254) 7 mg/dl 5-8 POCT U LEUK EST (test code = 3263) TRACE Negative - Negative POCT U NIT (test code = 3262) NEG Negative - Negati ve POCT U PROT (test code = 3259) TRACE Negative - Negat roe POCT U GLU (test code = 3256) NEG Negative - Negati ve POCT U KETONE (test code = 3258) NEG Negative - Neg ative POCT U BLD (test code = 3257) NEG Negative - Negati ve [id number] 00:00:00* Test Item Value Reference Range Interpretation Comme nts FERRITIN (test code = 41676-0) 19 NG/ML See_Comment [Automated messa ge] The system which generated this result transmitted reference range: 13-200 NG/ML. The reference range was not used to interpret this result as normal/abnormal. THYROID II PROFILE (TU, T4, T7, TSH)2023-08-16 00:00:00* Test Item Value Reference Range Interpretation Comme nts CORRECTED T4 (FTI) (test code = 58781-5) 9.3 UG/DL See_Comment [Automated messa ge] The system which generated this result transmitted reference range: 4.2-11.6 UG/DL. The reference range was not used to interpret this result as normal/abnormal. T-UPTAKE (test code = 47538-1) 27.2 % See_Comment [Automated messa ge] The system which generated this result transmitted reference range: 24.3-39.0 %. The reference range was not used to interpret this result as normal/abnormal. T4 (THYROXINE) (test code = 3026-2) 11.1 UG/DL See_Comment H [Automated messa ge] The system which generated this result transmitted reference range: 4.5-10.5 UG/DL. The reference range was not used to interpret this result as normal/abnormal. THYROX. BIND. CAPAC. (test code = 86587-0) 1.2 0.8-1.3 TSH, THIRD GENERATION (test code = 71029-9) 2.490 UIU/ML See_Comment [Automated messa ge] The system which generated this result transmitted reference range: 0.400-4.100 UIU/ML. The reference range was not used to interpret this result as normal/abnormal. PATHOLOGIST SMEAR [id number] 00:00:00* Test Item Value Reference Range Interpretation Comme nts BASOPHILS (test code = 88648-5) 0.7 % DIAGNOSIS: (test code = 35732-9) (NOTE) COMMENTS (test code = 42094-4) (NOTE) EOSINOPHILS (test code = 19566-3) 0.3 % HEMATOCRIT (test code = 11976-3) 35.9 % See_Comment [Automated messa ge] The system which generated this result transmitted reference range: 34.0-45.0 %. The reference range was not used to interpret this result as normal/abnormal. HEMOGLOBIN (test code = 718-7) 11.8 G/DL See_Comment [Automated messa ge] The system which generated this result transmitted reference range: 11.5-15.5 G/DL. The reference range was not used to interpret this result as normal/abnormal. LYMPHOCYTES (test code = 43096-0) 13.1 % MCH (test code = 63464-1) 28.9 PG See_Comment [Automated messa ge] The system which generated this result transmitted reference range: 25.0-33.0 PG. The reference range was not used to interpret this result as normal/abnormal. MCHC (test code = 27863-9) 32.9 G/DL See_Comment [Automated messa ge] The system which generated this result transmitted reference range: 31.0-36.0 G/DL. The reference range was not used to interpret this result as normal/abnormal. MCV (test code = 21147-4) 88.0 fL See_Comment [Automated messa ge] The system which generated this result transmitted reference range: 80.0-99.0 fL. The reference range was not used to interpret this result as normal/abnormal. MICROSCOPIC DESCRIPTION: (test code = 73132-5) (NOTE) MONOCYTES (test code = 39227-7) 5.3 % NEUTROPHILS (test code = 53502-4) 79.9 % NUCLEATED RBCS (test code = 63848-4) 0.0 /100 WBC'S See_Comment [Automated messa ge] The system which generated this result transmitted reference range: 0.0 /100 WBC'S. The reference range was not used to interpret this result as normal/abnormal. PATHOLOGIST: (test code = 20860-6) (NOTE) PLATELET COUNT (test code = 06377-6) 241 K/UL See_Comment [Automated messa ge] The system which generated this result transmitted reference range: 130-400 K/UL. The reference range was not used to interpret this result as normal/abnormal. RBC (test code = 21319-9) 4.08 M/UL See_Comment [Automated messa ge] The system which generated this result transmitted reference range: 3.80-5.40 M/UL. The reference range was not used to interpret this result as normal/abnormal. RDW (test code = 38354-3) 18.5 % See_Comment H [Automated messa ge] The system which generated this result transmitted reference range: 11.5-15.0 %. The reference range was not used to interpret this result as normal/abnormal. WBC (test code = 36259-5) 7.2 K/UL See_Comment [Automated messa ge] The system which generated this result transmitted reference range: 3.5-11.0 K/UL. The reference range was not used to interpret this result as normal/abnormal. POCT URINALYSIS W/O SPECIFIC [id number] 16:11:00* Test Item Value Reference Range Interpretation Comme nts POCT PH U (test code = 3254) 7 mg/dl 5-8 POCT U LEUK EST (test code = 3263) negative Negative - Negative POCT U NIT (test code = 3262) negative Negative - Negati ve POCT U PROT (test code = 3259) trace Negative - Negat roe POCT U GLU (test code = 3256) negative Negative - Negati ve POCT U KETONE (test code = 3258) negative Negative - Neg ative POCT U BLD (test code = 3257) negative Negative - Negati ve [facility] URINALYSIS W/O SPECIFIC [id number] 19:43:00* Test Item Value Reference Range Interpretation Comme nts POCT PH U (test code = 3254) 6 mg/dl 5-8 POCT U LEUK EST (test code = 3263) negative Negative - Negative POCT U NIT (test code = 3262) negative Negative - Negati ve POCT U PROT (test code = 3259) trace Negative - Negat roe POCT U GLU (test code = 3256) negative Negative - Negati ve POCT U KETONE (test code = 3258) negative Negative - Neg ative POCT U BLD (test code = 3257) negative Negative - Negati ve [facility] URINALYSIS W/O SPECIFIC [id number] 19:43:00* Test Item Value Reference Range Interpretation Comme nts POCT PH U (test code = 3254) 6 mg/dl 5-8 POCT U LEUK EST (test code = 3263) negative Negative - Negative POCT U NIT (test code = 3262) negative Negative - Negati ve POCT U PROT (test code = 3259) trace Negative - Negat roe POCT U GLU (test code = 3256) negative Negative - Negati ve POCT U KETONE (test code = 3258) negative Negative - Neg ative POCT U BLD (test code = 3257) negative Negative - Negati ve [facility] URINALYSIS W/O SPECIFIC [id number] 16:29:00* Test Item Value Reference Range Interpretation Comme nts POCT PH U (test code = 3254) 7 mg/dl 5-8 POCT U LEUK EST (test code = 3263) Neg Negative - Negative POCT U NIT (test code = 3262) Neg Negative - Negati ve POCT U PROT (test code = 3259) Neg Negative - Negat roe POCT U GLU (test code = 3256) Neg Negative - Negati ve POCT U KETONE (test code = 3258) Neg Negative - Neg ative POCT U BLD (test code = 3257) Neg Negative - Negati ve Lab Interpretation (test cod e = 20655-3) Normal [facility] URINALYSIS W/O SPECIFIC [id number] 16:29:00* Test Item Value Reference Range Interpretation Comme nts POCT PH U (test code = 3254) 7 mg/dl 5-8 POCT U LEUK EST (test code = 3263) Neg Negative - Negative POCT U NIT (test code = 3262) Neg Negative - Negati ve POCT U PROT (test code = 3259) Neg Negative - Negat roe POCT U GLU (test code = 3256) Neg Negative - Negati ve POCT U KETONE (test code = 3258) Neg Negative - Neg ative POCT U BLD (test code = 3257) Neg Negative - Negati ve Lab Interpretation (test cod e = 10942-3) Normal [facility] URINALYSIS W/O SPECIFIC [id number] 16:29:00* Test Item Value Reference Range Interpretation Comme nts POCT PH U (test code = 3254) 7 mg/dl 5-8 POCT U LEUK EST (test code = 3263) Neg Negative - Negative POCT U NIT (test code = 3262) Neg Negative - Negati ve POCT U PROT (test code = 3259) Neg Negative - Negat roe POCT U GLU (test code = 3256) Neg Negative - Negati ve POCT U KETONE (test code = 3258) Neg Negative - Neg ative POCT U BLD (test code = 3257) Neg Negative - Negati ve Lab Interpretation (test cod e = 25295-7) Normal [facility] URINALYSIS W/O SPECIFIC [id number] 16:29:00* Test Item Value Reference Range Interpretation Comme nts POCT PH U (test code = 3254) 7 mg/dl 5-8 POCT U LEUK EST (test code = 3263) Neg Negative - Negative POCT U NIT (test code = 3262) Neg Negative - Negati ve POCT U PROT (test code = 3259) Neg Negative - Negat roe POCT U GLU (test code = 3256) Neg Negative - Negati ve POCT U KETONE (test code = 3258) Neg Negative - Neg ative POCT U BLD (test code = 3257) Neg Negative - Negati ve Lab Interpretation (test cod e = 17567-7) Normal [facility] URINALYSIS W/O SPECIFIC [id number] 16:29:00* Test Item Value Reference Range Interpretation Comme nts POCT PH U (test code = 3254) 7 mg/dl 5-8 POCT U LEUK EST (test code = 3263) Neg Negative - Negative POCT U NIT (test code = 3262) Neg Negative - Negati ve POCT U PROT (test code = 3259) Neg Negative - Negat roe POCT U GLU (test code = 3256) Neg Negative - Negati ve POCT U KETONE (test code = 3258) Neg Negative - Neg ative POCT U BLD (test code = 3257) Neg Negative - Negati ve Lab Interpretation (test cod e = 48284-8) Normal [facility] URINALYSIS W/O SPECIFIC [id number] 15:27:00* Test Item Value Reference Range Interpretation Comme nts POCT PH U (test code = 3254) 7 mg/dl 5-8 POCT U LEUK EST (test code = 3263) - Negative - Negative POCT U NIT (test code = 3262) - Negative - Negati ve POCT U PROT (test code = 3259) TRACE Negative - Negat roe POCT U GLU (test code = 3256) - Negative - Negati ve POCT U KETONE (test code = 3258) - Negative - Neg ative POCT U BLD (test code = 3257) - Negative - Negati ve Lab Interpretation (test cod e = 08681-0) Abnormal [facility] URINALYSIS W/O SPECIFIC [id number] 15:27:00* Test Item Value Reference Range Interpretation Comme nts POCT PH U (test code = 3254) 7 mg/dl 5-8 POCT U LEUK EST (test code = 3263) - Negative - Negative POCT U NIT (test code = 3262) - Negative - Negati ve POCT U PROT (test code = 3259) TRACE Negative - Negat roe POCT U GLU (test code = 3256) - Negative - Negati ve POCT U KETONE (test code = 3258) - Negative - Neg ative POCT U BLD (test code = 3257) - Negative - Negati ve Lab Interpretation (test cod e = 60185-1) Abnormal [facility] URINALYSIS W/O SPECIFIC [id number] 15:27:00* Test Item Value Reference Range Interpretation Comme nts POCT PH U (test code = 3254) 7 mg/dl 5-8 POCT U LEUK EST (test code = 3263) - Negative - Negative POCT U NIT (test code = 3262) - Negative - Negati ve POCT U PROT (test code = 3259) TRACE Negative - Negat roe POCT U GLU (test code = 3256) - Negative - Negati ve POCT U KETONE (test code = 3258) - Negative - Neg ative POCT U BLD (test code = 3257) - Negative - Negati ve Lab Interpretation (test cod e = 97370-7) Abnormal [facility] URINALYSIS W/O SPECIFIC [id number] 15:27:00* Test Item Value Reference Range Interpretation Comme nts POCT PH U (test code = 3254) 7 mg/dl 5-8 POCT U LEUK EST (test code = 3263) - Negative - Negative POCT U NIT (test code = 3262) - Negative - Negati ve POCT U PROT (test code = 3259) TRACE Negative - Negat roe POCT U GLU (test code = 3256) - Negative - Negati ve POCT U KETONE (test code = 3258) - Negative - Neg ative POCT U BLD (test code = 3257) - Negative - Negati ve Lab Interpretation (test cod e = 92754-3) Abnormal [facility] URINALYSIS W/O SPECIFIC [id number] 15:27:00* Test Item Value Reference Range Interpretation Comme nts POCT PH U (test code = 3254) 7 mg/dl 5-8 POCT U LEUK EST (test code = 3263) - Negative - Negative POCT U NIT (test code = 3262) - Negative - Negati ve POCT U PROT (test code = 3259) TRACE Negative - Negat roe POCT U GLU (test code = 3256) - Negative - Negati ve POCT U KETONE (test code = 3258) - Negative - Neg ative POCT U BLD (test code = 3257) - Negative - Negati ve Lab Interpretation (test cod e = 20995-1) Abnormal [facility] URINALYSIS W/O SPECIFIC [id number] 18:15:00* Test Item Value Reference Range Interpretation Comme nts POCT PH U (test code = 3254) 6 mg/dl 5-8 POCT U LEUK EST (test code = 3263) Neg Negative - Negative POCT U NIT (test code = 3262) Neg Negative - Negati ve POCT U PROT (test code = 3259) Neg Negative - Negat roe POCT U GLU (test code = 3256) Neg Negative - Negati ve POCT U KETONE (test code = 3258) None Negative - Neg ative POCT U BLD (test code = 3257) Trace Negative - Negati ve [facility] URINALYSIS W/O SPECIFIC [id number] 18:15:00* Test Item Value Reference Range Interpretation Comme nts POCT PH U (test code = 3254) 6 mg/dl 5-8 POCT U LEUK EST (test code = 3263) Neg Negative - Negative POCT U NIT (test code = 3262) Neg Negative - Negati ve POCT U PROT (test code = 3259) Neg Negative - Negat roe POCT U GLU (test code = 3256) Neg Negative - Negati ve POCT U KETONE (test code = 3258) None Negative - Neg ative POCT U BLD (test code = 3257) Trace Negative - Negati ve [facility] URINALYSIS W/O SPECIFIC [id number] 18:15:00* Test Item Value Reference Range Interpretation Comme nts POCT PH U (test code = 3254) 6 mg/dl 5-8 POCT U LEUK EST (test code = 3263) Neg Negative - Negative POCT U NIT (test code = 3262) Neg Negative - Negati ve POCT U PROT (test code = 3259) Neg Negative - Negat roe POCT U GLU (test code = 3256) Neg Negative - Negati ve POCT U KETONE (test code = 3258) None Negative - Neg ative POCT U BLD (test code = 3257) Trace Negative - Negati ve [facility] [id number] 18:14:00* Test Item Value Reference Range Interpretation Comme nts POCT PREG (test code = 1605) Positive On board controls acceptable with C Line (test code = 3574) Yes POCT PREG LOT # (test code = 3575) POCT PREG TEST DATE ( test code = 3576) [facility] [id number] 18:14:00* Test Item Value Reference Range Interpretation Comme nts POCT PREG (test code = 1605) Positive On board controls acceptable with C Line (test code = 3574) Yes POCT PREG LOT # (test code = 3575) POCT PREG TEST DATE ( test code = 3576) [facility] [id number] 18:14:00* Test Item Value Reference Range Interpretation Comme nts POCT PREG (test code = 1605) Positive On board controls acceptable with C Line (test code = 3574) Yes POCT PREG LOT # (test code = 3575) POCT PREG TEST DATE ( test code = 3576) [facility] W/AUTO [id number] 00:00:00* Test Item Value Reference Range Interpretation Comme nts NUCLEATED RBCS (test code = 05554-3) 0.0 /100 WBC'S See_Comment [Automated messa ge] The system which generated this result transmitted reference range: 0.0 /100 WBC'S. The reference range was not used to interpret this result as normal/abnormal. ABSOLUTE EOSINOPHILS (test code = 00216-7) 0.01 K/UL See_Comment [Automated messa ge] The system which generated this result transmitted reference range: 0.00-0.50 K/UL. The reference range was not used to interpret this result as normal/abnormal. ABSOLUTE LYMPHOCYTES (test code = 50415-4) 0.99 K/UL See_Comment L [Automated messa ge] The system which generated this result transmitted reference range: 1.00-4.00 K/UL. The reference range was not used to interpret this result as normal/abnormal. ABSOLUTE MONOCYTES (test code = 63063-5) 0.52 K/UL See_Comment [Automated messa ge] The system which generated this result transmitted reference range: 0.20-1.00 K/UL. The reference range was not used to interpret this result as normal/abnormal. ABSOLUTE NEUTROPHILS (test code = 17870-5) 4.04 K/UL See_Comment [Automated messa ge] The system which generated this result transmitted reference range: 1.50-7.50 K/UL. The reference range was not used to interpret this result as normal/abnormal. BASOPHILS (test code = 65265-5) 1.2 % EOSINOPHILS (test code = 01125-9) 0.2 % HEMATOCRIT (test code = 25046-4) 27.5 % See_Comment L [Automated messa ge] The system which generated this result transmitted reference range: 34.0-45.0 %. The reference range was not used to interpret this result as normal/abnormal. HEMOGLOBIN (test code = 718-7) 8.1 G/DL See_Comment L [Automated messa ge] The system which generated this result transmitted reference range: 11.5-15.5 G/DL. The reference range was not used to interpret this result as normal/abnormal. LYMPHOCYTES (test code = 58411-7) 17.4 % MCH (test code = 02647-2) 21.1 PG See_Comment L [Automated messa ge] The system which generated this result transmitted reference range: 25.0-33.0 PG. The reference range was not used to interpret this result as normal/abnormal. MCHC (test code = 29867-5) 29.5 G/DL See_Comment L [Automated messa ge] The system which generated this result transmitted reference range: 31.0-36.0 G/DL. The reference range was not used to interpret this result as normal/abnormal. MCV (test code = 88357-7) 71.8 fL See_Comment L [Automated messa ge] The system which generated this result transmitted reference range: 80.0-99.0 fL. The reference range was not used to interpret this result as normal/abnormal. MONOCYTES (test code = 22288-1) 9.2 % NEUTROPHILS (test code = 11126-2) 71.1 % PLATELET COUNT (test code = 45489-7) 326 K/UL See_Comment [Automated messa ge] The system which generated this result transmitted reference range: 130-400 K/UL. The reference range was not used to interpret this result as normal/abnormal. RBC (test code = 99813-2) 3.83 M/UL See_Comment [Automated messa ge] The system which generated this result transmitted reference range: 3.80-5.40 M/UL. The reference range was not used to interpret this result as normal/abnormal. RDW (test code = 36666-6) 16.7 % See_Comment H [Automated messa ge] The system which generated this result transmitted reference range: 11.5-15.0 %. The reference range was not used to interpret this result as normal/abnormal. WBC (test code = 56181-2) 5.7 K/UL See_Comment [Automated messa ge] The system which generated this result transmitted reference range: 3.5-11.0 K/UL. The reference range was not used to interpret this result as normal/abnormal. HEMOGLOBIN [id number] 00:00:00* Test Item Value Reference Range Interpretation Comme [facility] HEMOGLOBIN A1c (test code = 4548-4) 5.4 % See_Comment [Automated messa ge] The system which generated this result transmitted reference range: 4.2-5.6 %. The reference range was not used to interpret this result as normal/abnormal. FREE T4 (THYROXINE)2023-05-12 00:00:00* Test Item Value Reference Range Interpretation Comme nts FREE T4 (THYROXINE) (test code = 3024-7) 1.19 NG/DL See_Comment [Automated messa ge] The system which generated this result transmitted reference range: 0.80-1.90 NG/DL. The reference range was not used to interpret this result as normal/abnormal. TSH REFLEX TO FREE [id number] 00:00:00* Test Item Value Reference Range Interpretation Comme nts TSH REFLEX TO FREE T4 (test code = 98157-1) 4.630 UIU/ML See_Comment H [Automated messa ge] The system which generated this result transmitted reference range: 0.400-4.100 UIU/ML. The reference range was not used to interpret this result as normal/abnormal. URINALYSIS (CULTURE IF INDICATED)2023-05-12 00:00:00* Test Item Value Reference Range Interpretation Comme nts APPEARANCE (test code = 5767-9) CLEAR CLEAR BILIRUBIN (test code = 5770-3) NEGATIVE NEGATIVE COLOR (test code = 5778-6) YELLOW YELLOW-STRAW GLUCOSE (test code = 5792-7) NEGATIVE NEGATIVE KETONES (test code = 5797-6) NEGATIVE NEGATIVE LEUKOCYTE ESTERASE (test code = 5799-2) NEGATIVE NEGATIVE NITRITE (test code = 5802-4) NEGATIVE NEGATIVE OCCULT BLOOD (test code = 82673-9) NEGATIVE NEGATIVE pH (test code = 5803-2) 7.5 5.0-9.0 PROTEIN (test code = 37094-7) NEGATIVE NEGATIVE SPECIFIC GRAVITY (test code = 5811-5) 1.020 1.005-1.035 UROBILINOGEN (test code = 06174-9) 0.2 MG/DL See_Comment [Automated messa ge] The system which generated this result transmitted reference range: <=2.0 MG/DL. The reference range was not used to interpret this result as normal/abnormal. LIPID PANEL WITH REFLEX DIRECT [id number] 00:00:00* Test Item Value Reference Range Interpretation Comme nts CALC LDL CHOL (test code = 59208-6) 66 MG/DL See_Comment [Automated messa ge] The system which generated this result transmitted reference range: <100 MG/DL. The reference range was not used to interpret this result as normal/abnormal. CHOLESTEROL (test code = 2093-3) 161 MG/DL See_Comment [Automated messa ge] The system which generated this result transmitted reference range: <200 MG/DL. The reference range was not used to interpret this result as normal/abnormal. HDL CHOLESTEROL (test code = 2085-9) 75 MG/DL See_Comment [Automated messa ge] The system which generated this result transmitted reference range: >39 MG/DL. The reference range was not used to interpret this result as normal/abnormal. RISK RATIO LDL/HDL (test code = 29388-3) 0.88 RATIO See_Comment [Automated message] The system which generated this result transmitted reference range: <3.22 RATIO. The reference range was not used to interpret this result as normal/abnormal. TRIGLYCERIDES (test code = 2571-8) 112 MG/DL See_Comment [Automated messa ge] The system which generated this result transmitted reference range: <150 MG/DL. The reference range was not used to interpret this result as normal/abnormal. COMPREHENSIVE METABOLIC [id number] 00:00:00* Test Item Value Reference Range Interpretation Comme nts ALBUMIN (test code = 1751-7) 4.6 G/DL See_Comment [Automated messa ge] The system which generated this result transmitted reference range: 3.5-5.2 G/DL. The reference range was not used to interpret this result as normal/abnormal. ALKALINE PHOSPHATASE (test code = 6768-6) 37 U/L See_Comment L [Automated message] The system which generated this result transmitted reference range: 40-112 U/L. The reference range was not used to interpret this result as normal/abnormal. BILIRUBIN, TOTAL (test code = 1975-2) 0.3 MG/DL See_Comment [Automated message] The system which generated this result transmitted reference range: <=1.2 MG/DL. The reference range was not used to interpret this result as normal/abnormal. BUN (test code = 3094-0) 12 MG/DL See_Comment [Automated messa ge] The system which generated this result transmitted reference range: 6-20 MG/DL. The reference range was not used to interpret this result as normal/abnormal. CALCIUM (test code = 38599-3) 9.5 MG/DL See_Comment [Automated messa ge] The system which generated this result transmitted reference range: 8.5-10.5 MG/DL. The reference range was not used to interpret this result as normal/abnormal. CALC A/G RATIO (test code = 1759-0) 2.1 RATIO See_Comment [Automated messa ge] The system which generated this result transmitted reference range: 1.0-2.6 RATIO. The reference range was not used to interpret this result as normal/abnormal. CALC BUN/CREAT (test code = 3097-3) 19 RATIO See_Comment [Automated messa ge] The system which generated this result transmitted reference range: 6-28 RATIO. The reference range was not used to interpret this result as normal/abnormal. CALC GLOBULIN (test code = 07867-5) 2.2 G/DL See_Comment [Automated messa ge] The system which generated this result transmitted reference range: 1.9-3.7 G/DL. The reference range was not used to interpret this result as normal/abnormal. CARBON DIOXIDE (test code = 1963-8) 24 MEQ/L See_Comment [Automated messa ge] The system which generated this result transmitted reference range: 19-31 MEQ/L. The reference range was not used to interpret this result as normal/abnormal. CHLORIDE (test code = 2075-0) 103 MEQ/L See_Comment [Automated messa ge] The system which generated this result transmitted reference range: 95-107 MEQ/L. The reference range was not used to interpret this result as normal/abnormal. CREATININE (test code = 2160-0) 0.64 MG/DL See_Comment [Automated messa ge] The system which generated this result transmitted reference range: 0.60-1.30 MG/DL. The reference range was not used to interpret this result as normal/abnormal. eGFR (2020 CKD-EPI) (test code = 81706-1) 117 ML/MIN/1.73 See_Comment [Automated message] The system which generated this result transmitted reference range: >60 ML/MIN/1.73. The reference range was not used to interpret this result as normal/abnormal. GLUCOSE (test code = 1558-6) 89 MG/DL See_Comment [Automated messa ge] The system which generated this result transmitted reference range: 70-99 MG/DL. The reference range was not used to interpret this result as normal/abnormal. POTASSIUM (test code = 2823-3) 4.3 MEQ/L See_Comment [Automated messa ge] The system which generated this result transmitted reference range: 3.5-5.4 MEQ/L. The reference range was not used to interpret this result as normal/abnormal. PROTEIN, TOTAL (test code = 2885-2) 6.8 G/DL See_Comment [Automated messa ge] The system which generated this result transmitted reference range: 6.1-8.3 G/DL. The reference range was not used to interpret this result as normal/abnormal. AST (test code = 1920-8) 15 U/L See_Comment [Automated messa ge] The system which generated this result transmitted reference range: 9-40 U/L. The reference range was not used to interpret this result as normal/abnormal. ALT (test code = 1742-6) 17 U/L See_Comment [Automated messa ge] The system which generated this result transmitted reference range: 5-40 U/L. The reference range was not used to interpret this result as normal/abnormal. SODIUM (test code = 2951-2) 138 MEQ/L See_Comment [Automated messa ge] The system which generated this result transmitted reference range: 133-146 MEQ/L. The reference range was not used to interpret this result as normal/abnormal. POCT [id number] 22:33:00* Test Item Value Reference Range Interpretation Comme nts POCT PREG (test code = 1605) Negative On board controls acceptable with C Line (test code = 3574) Yes POCT PREG LOT # (test code = 3575) POCT PREG TEST DATE ( test code = 3576) [facility]
[2023-10-12 00:22] LABS: Specific Gravity 1.011 (1.005-1.030); Urine Bacteria <20 /HPF (<20); Urine Bilirubin NEGATIVE (Negative); Urine Blood 3+ (OVER) (Negative); Urine Clarity Extremely Turbid (Clear); Urine Color Colorless (Yellow); Urine Glucose NEGATIVE (Negative); Urine Mucus Slight /HPF (None Seen); Urine Protein NEGATIVE (Negative); Urine RBC None Seen /HPF (None Seen); Urine Urobilinogen Normal (Normal)
[2023-10-12 00:46] LABS: Absolute Lymphocytes (CBC) 1.4 K/uL (0.7-4.9); Hematocrit 34.5 % (36.0-45.0); MCV 91.2 fL (80-100); Platelets 263 thou/uL (152-406); RBC Red Blood Cell Count 3.78 M/uL (3.86-4.86)
[2023-10-12 00:56] LABS: Albumin 2.7 g/dL (3.4-5.0); Bilirubin Total 0.2 mg/dL (0.2-1.0); Potassium 3.5 mEq/L (3.5-5.1); Protein, Total 6.5 g/dL (6.4-8.2)
--- NOTE | 2023-10-12 01:24 | EDPHYS ---
Physician Documentation [facility] Name: Miriam Lennon Age: 38 yrs Sex: Female : 1985 Arrival Date: 10/11/2023 Time: 22:11 Bed 5 Private MD: ED Physician Aayush Maradiaga HPI: 10/11 22:33 This 38 yrs old Female presents to ER via Unassigned with complaints of 30 sp4 WEEKS , VAGINAL BLEEDING. 23:22 Patient is 38-year-old female EGA 30 weeks 2 days, establish care at sp4 [facility], history of 2 C-sections. History of placenta previa considered high risk at this time. Developed bright red bleeding without clinical fluid associated with pelvic cramps at 10:15 PM today . Patient is here for evaluation. . 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 - Social history:: Smoking status: Patient denies any tobacco usage or history of. - Family history:: not pertinent. ROS: 23:22 Constitutional: Negative for fever, chills, and weight loss, positive for pelvic sp4 cramping and vaginal bleeding 23:22 All other systems are negative, Exam: 23:22 Constitutional: This is a well developed, well nourished patient who is awake, alert, sp4 and in no acute distress. Head/Face: Normocephalic, atraumatic. Eyes: Pupils equal round and reactive to light, extra-ocular motions intact. Lids and lashes normal. Conjunctiva and sclera are not injected. Cornea within normal limits. Periorbital areas with no swelling, redness, or edema. ENT: Nares patent. No nasal discharge, no septal abnormalities noted. Tympanic membranes are normal and external auditory canals are clear. Oropharynx with no redness, swelling, or masses, exudates, or evidence of obstruction, uvula midline. Mucous membranes moist. Neck: Trachea midline, no thyromegaly or masses palpated, and no cervical lymphadenopathy. Supple, full range of motion without nuchal rigidity, or vertebral point tenderness. Chest/axilla: Normal chest wall appearance and motion. Nontender with no deformity. No lesions are appreciated. Cardiovascular: Regular rate and rhythm with a normal S1 and S2. No gallops, murmurs, or rubs. Normal PMI, no JVD. No pulse deficits. Respiratory: Lungs have equal breath sounds bilaterally, clear to auscultation and percussion. No rales, rhonchi or wheezes noted. No increased work of breathing, no retractions or nasal flaring. Abdomen/GI: Soft, non-tender, with normal bowel sounds. No distension or tympany. No guarding or rebound. No evidence of tenderness throughout. Back: No spinal tenderness. No costovertebral tenderness. Skin: Warm, dry with normal turgor. Normal color with no rashes, no lesions, and no evidence of cellulitis. MS/ Extremity: Pulses equal, no cyanosis. Neurovascular intact. Full, normal range of motion. Neuro: Awake and alert, GCS 15, oriented to person, place, time, and situation. Cranial nerves II-XII grossly intact. Motor strength 5/5 in all extremities. Sensory grossly intact. Psych: Awake, alert, with orientation to person, place and time. Behavior, mood, and affect are within normal limits Vital Signs: 22:47 BP 121 / 92; Pulse 82; Resp 16; Temp 98.2(O); Pulse Ox 100% on R/A; Weight 71.21 kg; tl4 Height 5 ft. 9 in. ; Pain 09/22; 10/12 01:00 BP 91 / 77; Pulse 73; Resp 16 S; Pulse Ox 97% on R/A; jw7 10/11 22:47 Body Mass Index 23.18 (71.21 kg, 175.26 cm) tl4 10/11 22:47 Pain Scale: Adult tl4 MDM: 10/11 22:47 Patient medically screened. sp4 10/12 00:36 ED course: US - INDICATION: Vaginal bleeding. Third trimester gestation. PROCEDURE: sp4 ultrasound, limited. COMPARISON: None. FINDINGS: There is a single live intrauterine gestation identified in the cephalic position. The cervix is nondilated and measures 3.1 cm in length. A heart rate of 152 bpm is demonstrated. The placenta is located along the anterior wall and there is no evidence of placenta previa. Estimated placental grade is 1. The amniotic fluid volume is within normal limits with anAFI of 10.5 cm. The estimated gestational age is based on femoral length of 5.8 cm which corresponds to 30 weeks 2 days IMPRESSION: 1. Single live intrauterine gestation with estimated gestational age of 30 weeks 2 days. . 02:53 Differential Diagnosis altered mental status, sepsis, flu. Data reviewed: vital signs, sp4 nurses notes, old medical records, lab test result(s), radiologic studies, ultrasound. Consideration of Admission/Observation Escalation of care including admission/observation considered. ED course: Pelvic exam reveals small amount of blood in vaginal vault, no cervical dilation, No active bleeding. No sign of amniotic fluid leak. No sign of premature labor. Pelvic exam accomplished with female RN popcorn candy maker. 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 . 10/11 22:33 Order name: CBC with Diff; Complete Time: 01:20 sp4 10/11 22:33 Order name: CMP; Complete Time: 01:20 sp4 10/11 23:03 Order name: Urinalysis W/Microscopic; Complete Time: 00:36 sp4 10/11 22:34 Order name: US OB Limited sp4 10/11 22:33 Order name: IV Saline Lock; Complete Time: 00:15 sp4 10/11 22:33 Order name: Labs collected and sent; Complete Time: 00:15 sp4 10/11 23:03 Order name: Pelvic Exam Setup; Complete Time: 00:52 sp4 Administered Medications: 00:15 Drug: NS 0.9% IV 1000 ml IV at 1 bolus Per protocol; 1000 mL bolus Route: IV; Rate: 1 jw7 bolus; Site: right antecubital; :43 Follow up: Response: No adverse reaction; IV Status: Completed infusion; IV Intake: jw7 1000ml 00:15 Drug: Acetaminophen PO 1000 mg PO once Route: PO; jw7 :43 Follow up: Response: No adverse reaction jw7 00:15 Drug: Dicyclomine PO 20 mg PO once Route: PO; jw7 :43 Follow up: Response: No adverse reaction jw7 Disposition Summary: 10/12/23 01:24 Discharge Ordered Problem: new sp4 Symptoms: have improved sp4 Condition: Stable sp4 Diagnosis - 30 weeks gestation of sp4 - bleeding in , at 30 weeks at 2 days sp4 Followup: sp4 - With: Private Physician - When: 2 - 3 days - Reason: Recheck today's complaints Discharge Instructions: - Discharge Summary Sheet sp4 - Care sp4 Forms: - Patient Portal Instructions sp4 Signatures: Dispatcher [employer] Margareth Carrillo RN RN jw7 Aayush Maradiaga MD MD sp4 LogDavid mann tl4 Corrections: (The following items were deleted from the chart) 10/11 22:53 22:50 Home Meds: Suboxone sublingual; tl4 tl4
--- NOTE | 2023-10-12 01:24 | ER ---
Nurse's Notes [facility] Name: Miriam Lennon Age: 38 yrs Sex: Female : 1985 Arrival Date: 10/11/2023 Time: 22:11 Bed 5 Private MD: Diagnosis: 30 weeks gestation of ;bleeding in , at 30 weeks at 2 days Presentation: 10/11 22:47 Chief complaint: Patient states: Pt c/o lower abdominal cramping and vaginal spotting x tl4 30 minutes. Pt states it does not feel like labor. . Pt is receiving care at [facility]. Coronavirus screen: Vaccine status: Patient reports receiving the 2nd dose of the covid vaccine. Ebola Screen: Patient negative for fever greater than or equal to 101.5 degrees Fahrenheit, and additional compatible Ebola Virus Disease symptoms Patient denies exposure to infectious person. Patient denies travel to an Ebola-affected area in the 21 days before illness onset. No symptoms or risks identified at this time. Initial Sepsis Screen: Does the patient meet any 2 criteria? No. Patient's initial sepsis screen is negative. Does the patient have a suspected source of infection? No. Patient's initial sepsis screen is negative. Risk Assessment: Do you want to hurt yourself or someone else? Patient reports no desire to harm self or others. Onset of symptoms was October 11, 2023 at 22:15. 22:47 Method Of Arrival: Ambulatory tl4 22:47 Acuity: JOSE G 3 tl4 Triage Assessment: 22:53 General: Appears in no apparent distress. Behavior is calm, cooperative. Pain: tl4 Complains of pain in abdomen. EENT: No deficits noted. No signs and/or symptoms were reported regarding the EENT system. Neuro: No deficits noted. Cardiovascular: No deficits noted. Respiratory: No deficits noted. GI: No deficits noted. No signs and/or symptoms were reported involving the gastrointestinal system. : Reports inability to void, vaginal bleeding that is bright red, spotty. 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 - Social history:: Smoking status: Patient denies any tobacco usage or history of. - Family history:: not pertinent. Screenin:48 [facility] [place] ED Fall Risk Assessment (Adult) History of falling in the last 3 months, jw7 including since admission No falls in past 3 months (0 pts) Score/Fall Risk Level 0 - 2 = Low Risk Oriented to surroundings, Maintained a safe environment, Educated pt \T\ family on fall prevention, incl call for assistance when getting out of bed, Assessed \T\ reinforced patient's understanding of fall precautions. Abuse screen: Denies threats or abuse. Denies injuries from another. Nutritional screening: No deficits noted. Tuberculosis screening: No symptoms or risk factors identified. Assessment: 23:00 General: See triage assessment. jw7 10/12 00:16 Reassessment: Patient appears in no apparent distress at this time. No changes from 7 previously documented assessment. Patient and/or family updated on plan of care and expected duration. Pain level reassessed. Patient is alert, oriented x 3, equal unlabored respirations, skin warm/dry/pink. 01:18 Reassessment: Patient appears in no apparent distress at this time. No changes from jw7 previously documented assessment. Patient and/or family updated on plan of care and expected duration. Pain level reassessed. Patient is alert, oriented x 3, equal unlabored respirations, skin warm/dry/pink. 01:42 Reassessment: Patient appears in no apparent distress at this time. Patient and/or jw7 family updated on plan of care and expected duration. Pain level reassessed. Patient is alert, oriented x 3, equal unlabored respirations, skin warm/dry/pink. Patient states feeling better. Vital Signs: 10/11 22:47 BP 121 / 92; Pulse 82; Resp 16; Temp 98.2(O); Pulse Ox 100% on R/A; Weight 71.21 kg; tl4 Height 5 ft. 9 in. ; Pain 1/10; 10/12 01:00 BP 91 / 77; Pulse 73; Resp 16 S; Pulse Ox 97% on R/A; jw7 10/11 22:47 Body Mass Index 23.18 (71.21 kg, 175.26 cm) tl4 10/11 22:47 Pain Scale: Adult tl4 ED Course: 10/11 22:17 Patient arrived in ED. ag3 22:33 Aayush Maradiaga MD is Attending Physician. sp4 22:50 Triage completed. tl4 22:58 Arm band placed on right wrist. tl4 23:23 US OB Limited In Process Unspecified. EDMS 23:48 Patient has correct armband on for positive identification. Bed in low position. Call [facility] light in reach. 23:54 Urinalysis W/Microscopic Sent. jw7 10/12 00:15 Initial lab(s) drawn, by me, sent to lab. Inserted saline lock: 20 gauge in right [facility] antecubital area, using aseptic technique. Blood collected. 01:42 No provider procedures requiring assistance completed. IV discontinued, intact, jw7 bleeding controlled, No redness/swelling at site. Pressure dressing applied. :43 Provided Education on: discharge and follow-up instructions. jw7 Administered Medications: 00:15 Drug: NS 0.9% IV 1000 ml IV at 1 bolus Per protocol; 1000 mL bolus Route: IV; Rate: 1 jw7 bolus; Site: right antecubital; :43 Follow up: Response: No adverse reaction; IV Status: Completed infusion; IV Intake: jw7 1000ml 00:15 Drug: Acetaminophen PO 1000 mg PO once Route: PO; jw7 :43 Follow up: Response: No adverse reaction jw7 00:15 Drug: Dicyclomine PO 20 mg PO once Route: PO; jw7 :43 Follow up: Response: No adverse reaction jw7 Medication: :43 VIS not applicable for this client. jw7 Intake: :43 IV: 1000ml; Total: 1000ml. jw7 Outcome: 01:24 Discharge ordered by . sp4 01:42 Discharged to home ambulatory, jw7 :42 Condition: stable 01:42 Discharge instructions given to patient, Instructed on discharge instructions, follow up and referral plans. Demonstrated understanding of instructions, follow-up care, :43 Patient left the ED. jw7 Signatures: Dispatcher [employer] EDTN Heather Gonzalez 3 Margareth Chen RN RN jw7 Aayush Maradiaga MD MD sp4 David Villa tl4 Corrections: (The following items were deleted from the chart) 10/11 22:53 22:50 Home Meds: Suboxone sublingual; tl4 tl4
[2023-10-12 10:05] VITALS: BP 91/77; TEMP 98.2; O2SAT 97
--- NOTE | 2023-10-12 14:45 | RAD REPORT ---
EXAM DESCRIPTION: US - OB Limited - 10/11/2023 11:22 pm CLINICAL HISTORY: Vaginal bleeding. Third trimester gestation. TECHNIQUE: ultrasound, limited. COMPARISON: None. FINDINGS: There is a single live intrauterine gestation identified in the cephalic position. The cervix is nondilated and measures 3.1 cm in length. A heart rate of 152 bpm is demonstrated. The placenta is located along the anterior wall and there is no evidence of placenta previa. Estimate d placental grade is 1. The amniotic fluid volume is within normal limits with an RICO of 10.5 cm. The estimated gestational age is based on femoral length of 5.8 cm which corresponds to 30 weeks 2 da ys IMPRESSION: 1. Single live intrauterine gestation with estimated gestational age of 30 weeks 2 days. Electronically signed by: Zhao Gongora MD 10/12/2023 12:30 AM MANAGER [employer] Due to temporary technical issues with the PACS/Fluency reporting system, reports are being signed by the in house radiologists without review as a courtesy to insure prompt reporting. The interpreting radiologist is fully responsible for the content of the report.
== END ==
LOC: ER 22:11
DX: O26.893 Other specified pregnancy related conditions, third trimester (principal); O99.283 Endocrine, nutritional and metabolic diseases complicating pregnancy, third trimester; E03.9 Hypothyroidism, unspecified; Z3A.30 30 weeks gestation of pregnancy
CPT/HCPCS: 36415; 76815; 81001